=== PATIENT | female | born 1960 ===

== ENCOUNTER 2020-03-24 09:39 | Outpatient (REF) | payer OTHER, SELFPAY ==
[2020-03-24 10:35] LABS: MANUAL DIFF FLAG NO
[2020-03-24 10:44] LABS: Basophils Percent Auto 0.6 % (0-2); Eosinophils Absolute Auto 0.6 X10*3/uL (0.0-0.4); Eosinophils Percent Auto 8.1 % (0-4); Hematocrit 37.9 % (37-47); Hemoglobin 11.7 g/dl (12.0-16.0); Imm Gran Abs Auto 0.01 X10*3/uL (0.00-0.03); Imm Gran Pct Auto 0.1 % (0.0-0.4); Lymphocytes Absolute Auto 2.4 X10*3/uL (1.2-4.9); Lymphocytes Percent Auto 35.6 % (20-40); Mean Corpuscular HGB Conc 30.9 g/dl (31.0-35.0); Mean Corpuscular Volume 84.2 fL (80-98); Mean Platelet Volume 9.4 fL (9.4-12.3); Monocytes Absolute Auto 0.4 X10*3/uL (0.1-1.2); Monocytes Percent Auto 5.6 % (2-11); Neutrophils Absolute Auto 3.4 X10*3/uL (2.0-8.3); Platelet Count 267 X10*3/uL (160-400); Red Cell Distribution Width 17.6 % (11.0-16.0); White Blood Count 6.8 X10*3/uL (4.8-10.8)
[2020-03-24 11:10] LABS: Alanine Aminotransferase 13 U/L (0-31); Albumin Level 4.3 g/dL (3.5-5.0); Alkaline Phosphatase 73 U/L (39-117); Anion Gap 12 (12-20); Aspartate Amino Transferase 15 U/L (5-31); Bilirubin Total 0.2 mg/dL (0.0-1.0); Blood Urea Nitrogen 21 mg/dL (9-16); Calcium 9.2 mg/dL (8.4-10.2); Carbon Dioxide 30 mmol/L (22-29); Chloride 106 mmol/L (96-108); Cholesterol 133 mg/dL; Estimated Glomerular Filt Rate > 60; Glucose Random 89 mg/dL (60-115); HDL Cholesterol 66 mg/dL; LDL Cholesterol Calculated 57 mg/dl; Potassium 5.3 mmol/l (3.3-5.1); Sodium 143 mmol/L (135-145); Triglycerides 52 mg/dL
== END 2020-03-24 09:40 | disposition home or self-care (01) ==
LOC: HO.LAB 09:39
PROVIDERS: Visit Provider Internal Medicine
DX: E11.9 Type 2 diabetes mellitus without complications (principal); D50.9 Iron deficiency anemia, unspecified; Z11.1 Encounter for screening for respiratory tuberculosis
CPT/HCPCS: 36415; 80053; 80061; 85025; 86481

== ENCOUNTER 2020-05-16 08:13 | Outpatient (REF) | payer OTHER, SELFPAY ==
[2020-05-16 08:43] LABS: MANUAL DIFF FLAG NO
[2020-05-16 08:50] LABS: Basophils Absolute Auto 0.1 X10*3/uL (0.0-0.2); Eosinophils Absolute Auto 0.9 X10*3/uL (0.0-0.4); Eosinophils Percent Auto 12.3 % (0-4); Hematocrit 36.6 % (37-47); Hemoglobin 11.1 g/dl (12.0-16.0); Imm Gran Abs Auto 0.01 X10*3/uL (0.00-0.03); Imm Gran Pct Auto 0.1 % (0.0-0.4); Lymphocytes Absolute Auto 2.5 X10*3/uL (1.2-4.9); Lymphocytes Percent Auto 34.8 % (20-40); Mean Corpuscular HGB Conc 30.3 g/dl (31.0-35.0); Mean Corpuscular Hemoglobin 26.5 pg (27.0-33.0); Mean Corpuscular Volume 87.4 fL (80-98); Mean Platelet Volume 9.4 fL (9.4-12.3); Monocytes Absolute Auto 0.5 X10*3/uL (0.1-1.2); Monocytes Percent Auto 7.2 % (2-11); Neutrophils Absolute Auto 3.2 X10*3/uL (2.0-8.3); Neutrophils Percent Auto 44.6 % (45-73); Platelet Count 342 X10*3/uL (160-400); Red Blood Count 4.19 X10*6/uL (4.20-5.50); Red Cell Distribution Width 17.8 % (11.0-16.0); White Blood Count 7.3 X10*3/uL (4.8-10.8)
[2020-05-16 09:10] LABS: Alanine Aminotransferase 11 U/L (0-31); Albumin Level 4.3 g/dL (3.5-5.0); Alkaline Phosphatase 77 U/L (39-117); Anion Gap 13 (12-20); Aspartate Amino Transferase 15 U/L (5-31); Bilirubin Total 0.4 mg/dL (0.0-1.0); Blood Urea Nitrogen 15 mg/dL (9-16); Calcium 8.8 mg/dL (8.4-10.2); Carbon Dioxide 27 mmol/L (22-29); Chloride 105 mmol/L (96-108); Estimated Glomerular Filt Rate > 60; Glucose Fasting 111 mg/dL (60-99); Potassium 4.5 mmol/l (3.3-5.1); Sodium 140 mmol/L (135-145); Total Protein 6.9 g/dL (6.5-8.0)
== END 2020-05-16 08:14 | disposition home or self-care (01) ==
LOC: HO.LAB 08:13
PROVIDERS: PCP Internal Medicine; Visit Provider Internal Medicine
DX: D50.9 Iron deficiency anemia, unspecified (principal); E11.9 Type 2 diabetes mellitus without complications
CPT/HCPCS: 36415; 80053; 85025

== ENCOUNTER → 2020-07-07 12:27 | Outpatient (REF) | payer OTHER, SELFPAY ==
--- NOTE | 2020-07-07 12:32 | ECG_ITS ---
Test Reason : PREPROC Blood Pressure : / mmHG Vent. Rate : 069 BPM Atrial Rate : 069 BPM P-R Int : 158 ms QRS Dur : 088 ms QT Int : 370 ms P-R-T Axes : 017 -21 -04 degrees QTc Int : 396 ms Normal sinus rhythm Normal ECG When compared with ECG of 03-DEC-2019 10:24, Vent. rate has decreased BY 36 BPM Inverted T waves have replaced nonspecific T wave abnormality in Inferior leads Referred By: Joycelyn Huerta Electronically Signed By:MELQUIADES MARIN MD
== END ==
LOC: HO.CARD 12:27
PROVIDERS: PCP Internal Medicine; Visit Provider Internal Medicine
DX: Z01.810 Encounter for preprocedural cardiovascular examination (principal)
CPT/HCPCS: 93005

== ENCOUNTER 2020-07-13 08:47 | Day surgery (SDC) | payer OTHER, SELFPAY ==
[2020-07-07 11:02] VITALS: BMI 28.7
[2020-07-07 11:18] VITALS: BMI 28.7
--- NOTE | 2020-07-09 16:10 | MHC.SHP ---
Pre-Procedural Eval Section A The patient is an INPATIENT: No The History & Physical has been completed within 30 days and I have reviewed it.: Yes Section B Chief Complaint: Cataract Right eye Allergies: Allergies Allergy/AdvReac Type Severity Reaction Status Date / Time No Known Allergies Allergy Verified 06/30/20 17:00 [No Known Allergies*] Plan Diagnosis/Plan: Unchanged I have reviewed the history and physical and performed a pertinent physical examination on my patient. No changes have occurred unless specified.
--- NOTE | 2020-07-10 09:20 | HO.ANESPROP2 ---
Documented by User: Gema Garcianey 07/10/20 09:21 HPI - Anesthesia Eval Consult details Narrative: 60yo F for Right Cataract PCP cleared No prev cataract on record PMFSH Past Medical History Medical History Allergic rhinitis Anemia Dyslipidemia Gastritis Hyperlipidemia Hypertension Type 2 diabetes mellitus Family History Family History Father Diabetes Hypertension Mother Diabetes Hypertension Chronic mental illness Brother In good health Brother In good health Sister In good health Son In good health Son In good health Son In good health Surgical History Surgical History H/O colonoscopy History of esophagogastroduodenoscopy (EGD) History of surgery History of tubal ligation Social History Social History Are you a primary career development coordinator to a significant other at home: No Do you presently have visiting nurse or other home services: No Alcohol intake: never Smoking Status: Never smoker Use of substances other than those prescribed or required for medical reasons: No Have you been hit, kicked, punched, or otherwise hurt by someone within the past year? If so, by whom?: No Advance Directives Information Provided: No Recently lost weight without trying: No Meds Allergies Allergy/AdvReac Type Severity Reaction Status Date / Time No Known Allergies Allergy Verified 06/30/20 17:00 [No Known Allergies*] Home Medications Medication Instructions Recorded Confirmed Type atorvastatin 1 tab PO DAILY 03/31/20 07/07/20 History blood sugar diagnostic #10 ea 03/31/20 07/07/20 History empagliflozin [Jardiance] 1 tab PO QAM 03/31/20 07/07/20 History ferrous sulfate 1 tab PO BID 03/31/20 07/07/20 History lancets 28 gauge #100 ea 03/31/20 07/07/20 History metformin 1 tab PO BID 03/31/20 07/07/20 History omeprazole 1 cap PO DAILY 03/31/20 07/13/20 History ascorbic acid (vitamin C) 500 mg PO DAILY 07/07/20 07/07/20 History lisinopril 1 tab PO DAILY 07/07/20 07/07/20 History Exam Exam Date and Time: July 10, 2020 0920 Height,Weight and Vital Signs: Height 5 ft 2 in Weight 71.214 kg Narrative Narrative: EKG = NSR @ 69 Assessment and Plan Assessment Anesthesia Assessment: Chart Reviewed Documented by User: Arti Wright 07/13/20 10:24 [facility] Past Medical History Medical History Allergic rhinitis Anemia Dyslipidemia Gastritis Hyperlipidemia Hypertension Type 2 diabetes mellitus Family History Family History Father Diabetes Hypertension Mother Diabetes Hypertension Chronic mental illness Brother In good health Brother In good health Sister In good health Son In good health Son In good health Son In good health Surgical History Surgical History H/O colonoscopy History of esophagogastroduodenoscopy (EGD) History of surgery History of tubal ligation Social History Social History Are you a primary career development coordinator to a significant other at home: No Do you presently have visiting nurse or other home services: No Alcohol intake: never Smoking Status: Never smoker Use of substances other than those prescribed or required for medical reasons: No Have you been hit, kicked, punched, or otherwise hurt by someone within the past year? If so, by whom?: No Advance Directives Information Provided: No Recently lost weight without trying: No Meds Allergies Allergy/AdvReac Type Severity Reaction Status Date / Time No Known Allergies Allergy Verified 06/30/20 17:00 [No Known Allergies*] Home Medications Medication Instructions Recorded Confirmed Type atorvastatin 1 tab PO DAILY 03/31/20 07/07/20 History blood sugar diagnostic #10 ea 03/31/20 07/07/20 History empagliflozin [Jardiance] 1 tab PO QAM 03/31/20 07/07/20 History ferrous sulfate 1 tab PO BID 03/31/20 07/07/20 History lancets 28 gauge #100 ea 03/31/20 07/07/20 History metformin 1 tab PO BID 03/31/20 07/07/20 History omeprazole 1 cap PO DAILY 03/31/20 07/13/20 History ascorbic acid (vitamin C) 500 mg PO DAILY 07/07/20 07/07/20 History lisinopril 1 tab PO DAILY 07/07/20 07/07/20 History Exam Airway Mallampati Class: I TM Dist: >3cm Neck ROM: Full Denture: Upper and Lower Loose/Missing/Broken Teeth: Yes, Upper and Lower Heart: RRR Lungs: CTA Assessment and Plan Assessment Anesthesia Assessment: Anesthesia Plan Discussed and Chart Reviewed Final Anesthetic Review NPO: Yes ASA Class: II Final Preanesthetic Review: Meds/Allgs Chart Reviewed, Consent Obtained/Reviewed and Anes Risks/Benef Reviewed Patient Risk: Low Procedure Risk: Low Anesthetic Plan Anesthetic Plan: MAC: Disposition: Standard PACU
[2020-07-13 10:14] VITALS: BP 116/59; PULSE 70; RESP 16; TEMP 36.6; O2SAT 99
[2020-07-13 10:15] LABS: Glucose, Whole Blood 96 mg/dL (60-115)
[2020-07-13] MEDS: Lactated Ringers 500 ML 50 ML IV (10:28)
[2020-07-13] MEDS: Tetracaine HCl/PF 0.5% Oph Sol 4 ML DROPS 1 DROP EYE-RIGHT (10:29)
[2020-07-13] MEDS: Tropicamide 1 % Ophth Sol 3 ML BTL 1 DROP EYE-RIGHT ×3 (10:30→10:36)
[2020-07-13] MEDS: Phenylephrine HCL 2.5% Oph SoL 2 ML BOTTLE 1 DROP EYE-RIGHT ×3 (10:32→10:38)
--- NOTE | 2020-07-13 11:10 | HO.PNOPHT ---
Ophthalmology Procedure Procedure Date of Service: 07/13/20 Ophthalmology Viscoelastic: Viky Dickens Dual Pack Pro Ophthalmology Lenses: TECROMA [id number] (21) Procedure Notes: PREOPERATIVE DIAGNOSIS: Decreased visual acuity right eye secondary to cataract POSTOPERATIVE DIAGNOSIS: Same PROCEDURE: Right cataract extraction with intraocular lens insertion SURGEON: José Miguel Hooper M.D. ANESTHESIA: Topical/MAC ESTIMATED BLOOD LOSS: None COMPLICATIONS: None After obtaining informed consent, the patient was brought to the operating room suite and placed in the supine position. After adequate sedation per anesthesia, topical drops of Tetracaine were given to the right eye. The eye was then prepped and draped in the usual sterile fashion. The operating room microscope was then positioned over the operative eye and a lid speculum placed. A paracentesis was created. Dense white cataract precluded view of the capsle. Air bubble was placed intracamerally followed by visian blue placed on the anterior capsule. The Phaco unit was utilized to evacuate excess Visian Blue. Viscoelastic was then instilled into the anterior chamber. A three plane incision was then created temporally, utilizing a 2.85 mm keratome. Capsulotomy forceps were then utilized to create a circular tear capsulotomy. Hydrodissection and hydrodelineation were carried out until adequate mobilization of the nucleus occurred. Phacoemulsification was then utilized to remove the dense central nucleus followed by removal of the cortical material utilizing the automated aspiration irrigation unit. Viscoelastic was instilled into the posterior capsular bag followed by placement of a posterior chamber intraocular lens without difficulty. The residual Viscoelastic was then removed utilizing the automated IA machine. The wound was checked and found to be watertight. The patient tolerated the procedure well and the lid speculum was removed. Intracameral injection of Vigamox 0.1 mL followed by a subtenon injection of Kenalog-40 0.2 mL were administered. The patient will be seen in the a.m.
[2020-07-13 11:18] VITALS: BP 104/57; PULSE 70; RESP 18; TEMP 36.6; O2SAT 100
== END 2020-07-13 11:42 | disposition home or self-care (01) ==
PROVIDERS: PCP Internal Medicine; Visit Provider Ophthalmology
PROC: (CPT 66985; principal; 2020-07-13 11:40)
DX: H25.11 Age-related nuclear cataract, right eye (principal); E11.9 Type 2 diabetes mellitus without complications; I10 Essential (primary) hypertension; Z79.84 Long term (current) use of oral hypoglycemic drugs; Z79.899 Other long term (current) drug therapy
CPT/HCPCS: 66984; 82947; J2250; J3010; J3300; V2632

== ENCOUNTER 2020-07-27 07:31 | Day surgery (SDC) | payer OTHER, SELFPAY ==
[2020-07-07 11:22] VITALS: BMI 28.7
--- NOTE | 2020-07-24 15:10 | MHC.SHP ---
Pre-Procedural Eval Section A The patient is an INPATIENT: No The History & Physical has been completed within 30 days and I have reviewed it.: Yes Section B Chief Complaint: Cataract Left Eye Allergies: Allergies Allergy/AdvReac Type Severity Reaction Status Date / Time No Known Allergies Allergy Verified 06/30/20 17:00 [No Known Allergies*] Plan Diagnosis/Plan: Unchanged I have reviewed the history and physical and performed a pertinent physical examination on my patient. No changes have occurred unless specified.
[2020-07-27 08:16] LABS: Glucose, Whole Blood 112 mg/dL (60-115)
[2020-07-27] MEDS: Tetracaine HCl/PF 0.5% Oph Sol 4 ML DROPS 1 DROP EYE-LEFT (08:17)
[2020-07-27] MEDS: Tropicamide 1 % Ophth Sol 3 ML BTL 1 DROP EYE-LEFT ×3 (08:18→08:33)
[2020-07-27] MEDS: Phenylephrine HCL 2.5% Oph SoL 2 ML BOTTLE 1 DROP EYE-LEFT ×3 (08:18→08:34)
[2020-07-27 08:28] VITALS: BP 131/66; PULSE 63; RESP 18; TEMP 36.2; O2SAT 98
--- NOTE | 2020-07-27 09:08 | P.CONAN_ITS ---
[facility] Active Problems Active Problems: All Active Problems (Updated 07/07/20 @ 11:05 by Keily hewitt) Iron deficiency anemia (Acute) Dyslipidemia (Acute) Allergic rhinitis (Acute) Diabetes mellitus (Acute) Past Medical History Medical History Allergic rhinitis Anemia Dyslipidemia Gastritis Hyperlipidemia Hypertension Type 2 diabetes mellitus Family History Family History Father Diabetes Hypertension Mother Diabetes Hypertension Chronic mental illness Brother In good health Brother In good health Sister In good health Son In good health Son In good health Son In good health Surgical History Surgical History H/O colonoscopy History of esophagogastroduodenoscopy (EGD) History of surgery History of tubal ligation Social History Social History Are you a primary reproductive healthcare assistant to a significant other at home: No Do you presently have visiting nurse or other home services: No Alcohol intake: never Smoking Status: Never smoker Use of substances other than those prescribed or required for medical reasons: No Have you been hit, kicked, punched, or otherwise hurt by someone within the past year? If so, by whom?: No Advance Directives Information Provided: No Recently lost weight without trying: No Meds Allergies Allergy/AdvReac Type Severity Reaction Status Date / Time No Known Allergies Allergy Verified 06/30/20 17:00 [No Known Allergies*] Active Medications: Current Medications Generic Name Dose Route Start Last Admin Trade Name Freq PRN Reason Stop Dose Admin Povidone Iodine 1 appl 07/27/20 07:48 Povidone Iodine 5 % Ophth Soln 30 Ml Bottle EYE-LEFT PREOP PRN Pre-Op Surgical Implant Prophy Home Medications Medication Instructions Recorded Confirmed Last Taken Type atorvastatin 1 tab PO DAILY 03/31/20 07/07/20 Unknown History blood sugar diagnostic #10 ea 03/31/20 07/07/20 Unknown History empagliflozin [Jardiance] 1 tab PO QAM 03/31/20 07/07/20 Unknown History ferrous sulfate 1 tab PO BID 03/31/20 07/07/20 Unknown History lancets 28 gauge #100 ea 03/31/20 07/07/20 Unknown History metformin 1 tab PO BID 03/31/20 07/07/20 Unknown History omeprazole 1 cap PO DAILY 03/31/20 07/13/20 07/13/20 History ascorbic acid (vitamin C) 500 mg PO DAILY 07/07/20 07/07/20 Unknown History lisinopril 1 tab PO DAILY 07/07/20 07/07/20 Unknown History Exam Exam Date and Time: July 27, 2020 0908 Height,Weight and Vital Signs: Height 5 ft 2 in Weight 71.214 kg Last Vital Signs Temp 97.2 F 07/27/20 08:28 Pulse 63 07/27/20 08:28 Resp 18 07/27/20 08:28 BP 131/66 07/27/20 08:28 Pulse Ox 98 07/27/20 08:28 Pertinent Lab Results Pertinent Lab Results: Laboratory Tests 07/27/20 08:13 POC Glucose 112 Airway Mallampati Class: II (Edentulous) TM Dist: >3cm Neck ROM: Full Denture: Upper and Lower Loose/Missing/Broken Teeth: Yes, Upper and Lower Heart: RRR Lungs: CTA Assessment and Plan Assessment Anesthesia Assessment: Anesthesia Plan Discussed and Chart Reviewed Final Anesthetic Review NPO: Yes ASA Class: II Final Preanesthetic Review: Meds/Allgs Chart Reviewed, Consent Obtained/Reviewed and Anes Risks/Benef Reviewed Patient Risk: Low Procedure Risk: Low Anesthetic Plan Anesthetic Plan: MAC: Disposition: Standard PACU
--- NOTE | 2020-07-27 11:14 | HO.PNOPHT ---
Ophthalmology Procedure Procedure Date of Service: 07/27/20 Ophthalmology Viscoelastic: Healon Duet Dual Pack Pro Ophthalmology Lenses: TECNIS [id number] (21.5) Procedure Notes: PREOPERATIVE DIAGNOSIS: Decreased visual acuity left eye secondary to cataract POSTOPERATIVE DIAGNOSIS: Same PROCEDURE: Left cataract extraction with intraocular lens insertion SURGEON: José Miguel Hooper M.D. ANESTHESIA: Topical/MAC ESTIMATED BLOOD LOSS: None COMPLICATIONS: None After obtaining informed consent, the patient was brought to the operation room suite and placed in the supine position. After adequate sedation per anesthesia, topical drops of Tetracaine were given to the left eye. The eye was then prepped and draped in the usual sterile fashion. The operating room microscope was then positioned over the operative eye and a lid speculum placed. A paracentesis was created. Viscoelastic was then instilled into the anterior chamber. A three plane incision was then created temporally, utilizing a 2.85 mm keratome. Capsulotomy forceps were then utilized to create a circular tear capsulotomy. Hydrodissection and hydrodelineation were carried out until adequate mobilization of the nucleus occurred. Phacoemulsification was then utilized to remove the dense central nucleus followed by removal of the cortical material utilizing the automated aspiration irrigation unit. Viscoat elastic was instilled into the posterior capsular bag followed by placement of a posterior chamber intraocular lens without difficulty. The residual Viscoat elastic was then removed utilizing the automated IA machine. The wound was check and found to be watertight. The patient tolerated the procedure well and the lid speculum was removed. Intracameral injection of Vigamox 0.1 mL followed by a subtenon injection of Kenalog-40 0.2 mL were administered. The patient will be seen in the a.m.
[2020-07-27 11:16] VITALS: BP 129/76; PULSE 68; RESP 20; TEMP 36.7; O2SAT 98
== END 2020-07-27 11:25 | disposition home or self-care (01) ==
PROVIDERS: PCP Internal Medicine; Visit Provider Ophthalmology
PROC: (CPT 66985; principal; 2020-07-27 10:40)
DX: H25.12 Age-related nuclear cataract, left eye (principal); H54.7 Unspecified visual loss; D50.9 Iron deficiency anemia, unspecified; I10 Essential (primary) hypertension; E11.9 Type 2 diabetes mellitus without complications; Z79.84 Long term (current) use of oral hypoglycemic drugs; Z79.899 Other long term (current) drug therapy
CPT/HCPCS: 66984; 82947; J2250; J3010; J3300; V2632

== ENCOUNTER 2020-08-08 09:34 | Outpatient (REF) | payer OTHER, SELFPAY ==
--- NOTE | ~2020-08-08 | MM_ITS ---
EXAMINATION: MM SCREENING DIGITAL BREAST TOMOSYNTHESIS, BILATERAL CLINICAL INFORMATION: Screening. Asymptomatic. The lifetime risk of breast cancer based on the Tyrer-Cuzick Model is 5%. COMPARISON: Mammography: 08/03/2019, 07/28/2018, 07/15/2017 TECHNIQUE: Digital breast tomosynthesis is performed in both the craniocaudal and mediolateral oblique views along with computer-aided detection (CAD). Synthesized 2D images are generated from the tomosynthesis. FINDINGS: There are scattered areas of fibroglandular density (ACR BI-RADS breast composition Category b). Parenchymal pattern is similar to prior studies. Scattered small fibroglandular asymmetries bilateral outer quadrants are stable. There is no developing density. There are no abnormal calcifications. The axilla and skin contours are unremarkable. MM/MM tomosynthesis screening BI IMPRESSION: No significant changes from prior exams. ASSESSMENT: BI-RADS 2: Benign RECOMMENDATION: Routine annual mammography screening. This patient's information was entered into a reminder system with a target due date for their next mammogram.
== END 2020-08-08 09:35 | disposition home or self-care (01) ==
LOC: HO.MAMMO 09:34
PROVIDERS: PCP Internal Medicine; Visit Provider Internal Medicine
DX: Z12.31 Encounter for screening mammogram for malignant neoplasm of breast (principal)
CPT/HCPCS: 77063; 77067

== ENCOUNTER 2020-10-03 07:37 | Outpatient (REF) | payer OTHER, SELFPAY ==
[2020-10-03 08:16] LABS: MANUAL DIFF FLAG NO
[2020-10-03 08:19] LABS: Basophils Absolute Auto 0.1 X10*3/uL (0.0-0.2); Basophils Percent Auto 0.8 % (0-2); Eosinophils Absolute Auto 0.6 X10*3/uL (0.0-0.4); Eosinophils Percent Auto 9.7 % (0-4); Hematocrit 37.6 % (37-47); Hemoglobin 11.6 g/dl (12.0-16.0); Imm Gran Abs Auto 0.02 X10*3/uL (0.00-0.03); Imm Gran Pct Auto 0.3 % (0.0-0.4); Lymphocytes Absolute Auto 2.2 X10*3/uL (1.2-4.9); Lymphocytes Percent Auto 33.8 % (20-40); Mean Corpuscular HGB Conc 30.9 g/dl (31.0-35.0); Mean Corpuscular Hemoglobin 26.7 pg (27.0-33.0); Mean Corpuscular Volume 86.6 fL (80-98); Mean Platelet Volume 9.6 fL (9.4-12.3); Monocytes Absolute Auto 0.8 X10*3/uL (0.1-1.2); Neutrophils Absolute Auto 2.8 X10*3/uL (2.0-8.3); Neutrophils Percent Auto 43.4 % (45-73); Platelet Count 268 X10*3/uL (160-400); Red Blood Count 4.34 X10*6/uL (4.20-5.50); Red Cell Distribution Width 15.2 % (11.0-16.0); White Blood Count 6.5 X10*3/uL (4.8-10.8)
[2020-10-03 08:38] LABS: Alanine Aminotransferase 16 U/L (0-31); Albumin Level 4.4 g/dL (3.5-5.0); Alkaline Phosphatase 76 U/L (39-117); Anion Gap 15 (12-20); Aspartate Amino Transferase 22 U/L (5-31); Bilirubin Total 0.3 mg/dL (0.0-1.0); Blood Urea Nitrogen 18 mg/dL (9-16); Calcium 9.7 mg/dL (8.4-10.2); Carbon Dioxide 26 mmol/L (22-29); Chloride 109 mmol/L (96-108); Cholesterol 115 mg/dL; Estimated Glomerular Filt Rate > 60; Glucose Fasting 135 mg/dL (60-99); HDL Cholesterol 54 mg/dL; Iron 29 mcg/dL (30-160); LDL Cholesterol Calculated 46 mg/dl; Percent Iron Saturation 10 % (15-50); Potassium 4.7 mmol/L (3.3-5.1); Sodium 145 mmol/L (135-145); Total Iron Binding Capacity 298 mcg/dL (228-428); Total Protein 7.1 g/dL (6.5-8.0); Triglycerides 78 mg/dL; Unsaturated Iron Binding 269 ug/dL
== END 2020-10-03 07:38 | disposition home or self-care (01) ==
LOC: HO.LAB 07:37
PROVIDERS: Internal Medicine; PCP Internal Medicine; Visit Provider Internal Medicine
DX: D50.9 Iron deficiency anemia, unspecified (principal); E11.9 Type 2 diabetes mellitus without complications; E78.5 Hyperlipidemia, unspecified
CPT/HCPCS: 36415; 80053; 80061; 83540; 85025

== ENCOUNTER → 2020-10-20 13:20 | Outpatient (BNV) | payer MEDICARE, OTHER, SELFPAY | PROVIDERS: PCP Internal Medicine; Visit Provider Internal Medicine | DX: D50.0 Iron deficiency anemia secondary to blood loss (chronic) (principal); Z85.3 Personal history of malignant neoplasm of breast; Z92.21 Personal history of antineoplastic chemotherapy | CPT/HCPCS: 99213; 99214; G2211 ==

== ENCOUNTER 2021-02-09 06:30 | Outpatient (REF) | payer OTHER, SELFPAY ==
[2021-02-09 08:36] LABS: Alanine Aminotransferase 12 U/L (0-31); Albumin Level 4.4 g/dL (3.5-5.0); Alkaline Phosphatase 83 U/L (39-117); Anion Gap 14 (12-20); Aspartate Amino Transferase 14 U/L (5-31); Bilirubin Total 0.2 mg/dL (0.0-1.0); Blood Urea Nitrogen 21 mg/dL (9-16); Carbon Dioxide 26 mmol/L (22-29); Chloride 105 mmol/L (96-108); Cholesterol 137 mg/dL; Estimated Glomerular Filt Rate > 60; Glucose Fasting 108 mg/dL (60-99); HDL Cholesterol 67 mg/dL; LDL Cholesterol Calculated 54 mg/dl; Potassium 5.4 mmol/L (3.3-5.1); Sodium 140 mmol/L (135-145); Total Protein 7.3 g/dL (6.5-8.0); Triglycerides 80 mg/dL
[2021-02-09 09:21] LABS: Creatinine Urine 68.76 mg/dL; Microalbum/Creatinine Ratio Ur 24.7 ug/mg cr
== END 2021-02-09 06:31 | disposition home or self-care (01) ==
LOC: HO.LAB 06:30
PROVIDERS: PCP Internal Medicine; Visit Provider Internal Medicine
DX: E78.5 Hyperlipidemia, unspecified (principal); E11.9 Type 2 diabetes mellitus without complications
CPT/HCPCS: 36415; 80053; 80061; 82043

== ENCOUNTER 2021-06-08 10:17 | Outpatient (REF) | payer OTHER, SELFPAY | END 2021-06-08 10:18 | disposition home or self-care (01) | LOC: HO.HMGCLDS 10:17 | PROVIDERS: Visit Provider Internal Medicine | DX: Z20.822 Contact with and (suspected) exposure to COVID-19 (principal) | CPT/HCPCS: C9803; U0003; U0005 ==

== ENCOUNTER 2021-08-14 08:19 | Outpatient (REF) | payer OTHER, SELFPAY ==
--- NOTE | ~2021-08-14 | MM_ITS ---
EXAMINATION: MM SCREENING DIGITAL BREAST TOMOSYNTHESIS, BILATERAL CLINICAL INFORMATION: Screening. Asymptomatic. The lifetime risk of breast cancer based on the Tyrer-Cuzick Model is 5%. COMPARISON: Mammography: 08/08/2020, 08/03/2019, 07/28/2018, 07/15/2017, 06/25/2016, 03/28/2015 TECHNIQUE: Digital breast tomosynthesis is performed in both the craniocaudal and mediolateral oblique views along with computer-aided detection (CAD). Synthesized 2D images are generated from the tomosynthesis. FINDINGS: There are scattered areas of fibroglandular density (ACR BI-RADS breast composition Category b). Right breast parenchymal pattern is similar to prior studies. Scattered minor asymmetries are stable. There is no developing density or interval architectural abnormality. Neither breast shows abnormal calcifications. The bilateral axilla and skin contours are unremarkable. Left breast has interval focal asymmetric density posterior 3:00 position. Patient will be recalled for additional imaging. Remainder of left breast is unremarkable. MM/MM tomosynthesis screening BI IMPRESSION: 1. Left: Focal asymmetric density posterior 3:00 position. 2. Right: No mammographic evidence of malignancy. ASSESSMENT: BI-RADS 0: Incomplete - Need Additional Imaging Evaluation RECOMMENDATION: 1. Additional views of the left breast (rolled CC x 2; spot MLO). 2. Targeted ultrasound if warranted after review of the additional views. 3. Radiology department staff will contact the patient for additional imaging. This patient's information was entered into a reminder system with a target due date for their next mammogram.
== END 2021-08-14 08:20 | disposition home or self-care (01) ==
LOC: HO.MAMMO 08:19
PROVIDERS: PCP Internal Medicine; Visit Provider Internal Medicine
DX: Z12.31 Encounter for screening mammogram for malignant neoplasm of breast (principal)
CPT/HCPCS: 77063; 77067

== ENCOUNTER 2021-08-31 14:06 | Outpatient (REF) | payer OTHER, SELFPAY ==
--- NOTE | ~2021-08-31 | MM_ITS ---
EXAMINATION: MM DIAGNOSTIC DIGITAL BREAST TOMOSYNTHESIS, LEFT US DIAGNOSTIC ULTRASOUND BREAST, LEFT CLINICAL INFORMATION: Recall from screening for subtle focal asymmetric density posterior 3:00 position. COMPARISON: Mammography: 08/14/2021, 08/08/2020, 08/03/2019, 07/28/2018, 07/15/2017, 06/25/2016, 03/28/2015. TECHNIQUE: Digital breast tomosynthesis is performed. 2D images are generated from the tomosynthesis. The following views are obtained: Rolled CC x2, spot MLO. Ultrasound left breast is targeted to the mid to posterior outer breast using grayscale imaging and color Doppler without and with harmonics. FINDINGS: There are scattered areas of fibroglandular density (ACR BI-RADS breast composition Category b). The additional views show subtle parenchymal asymmetry posterior 3:00 position. There is question of fine radiating lines on the spot MLO view. Ultrasound left breast demonstrates some inhomogeneous echogenicity in the posterior outer 3:00 position but without convincing three-dimensional lesion to confirm ultrasound correlate for tissue sampling. There is no focal posterior shadowing in two planes. No focal duct ectasia. Results are discussed with the patient at time of visit, using an medicare sales executive. Stereotactic sampling of the parenchymal asymmetry posterior outer left breast is suggested. Results and recommendation are called to police patrol officer (Shruthi) for Dr. Alex Huerta on 08/31/2021. MM/MM tomosynthesis added views L IMPRESSION: Subtle focal asymmetric density posterior 3:00 left breast without convincing ultrasound correlate. ASSESSMENT: BI-RADS 4: Suspicious RECOMMENDATION: Stereotactic sampling focal asymmetry posterior outer left breast. This patient's information was entered into a reminder system with a target due date for their next mammogram.
--- NOTE | ~2021-08-31 | US_ITS ---
EXAMINATION: MM DIAGNOSTIC DIGITAL BREAST TOMOSYNTHESIS, LEFT US DIAGNOSTIC ULTRASOUND BREAST, LEFT CLINICAL INFORMATION: Recall from screening for subtle focal asymmetric density posterior 3:00 position. COMPARISON: Mammography: 08/14/2021, 08/08/2020, 08/03/2019, 07/28/2018, 07/15/2017, 06/25/2016, 03/28/2015. TECHNIQUE: Digital breast tomosynthesis is performed. 2D images are generated from the tomosynthesis. The following views are obtained: Rolled CC x2, spot MLO. Ultrasound left breast is targeted to the mid to posterior outer breast using grayscale imaging and color Doppler without and with harmonics. FINDINGS: There are scattered areas of fibroglandular density (ACR BI-RADS breast composition Category b). The additional views show subtle parenchymal asymmetry posterior 3:00 position. There is question of fine radiating lines on the spot MLO view. Ultrasound left breast demonstrates some inhomogeneous echogenicity in the posterior outer 3:00 position but without convincing three-dimensional lesion to confirm ultrasound correlate for tissue sampling. There is no focal posterior shadowing in two planes. No focal duct ectasia. Results are discussed with the patient at time of visit, using an repairer art objects. Stereotactic sampling of the parenchymal asymmetry posterior outer left breast is suggested. Results and recommendation are called to chief sustainability officer (Shruthi) for Dr. Alex Huerta on 08/31/2021. US/US breast LT limited IMPRESSION: Subtle focal asymmetric density posterior 3:00 left breast without convincing ultrasound correlate. ASSESSMENT: BI-RADS 4: Suspicious RECOMMENDATION: Stereotactic sampling focal asymmetry posterior outer left breast. This patient's information was entered into a reminder system with a target due date for their next mammogram.
== END 2021-08-31 14:07 | disposition home or self-care (01) ==
LOC: HO.MAMMO 14:06
PROVIDERS: PCP Internal Medicine; Visit Provider Internal Medicine
DX: R92.2 Inconclusive mammogram (principal)
CPT/HCPCS: 76642; 77061; 77065

== ENCOUNTER 2021-09-21 07:57 | Outpatient (REF) | payer OTHER, SELFPAY ==
--- NOTE | ~2021-09-21 | MM_ITS ---
EXAMINATION: STEREOTACTIC TOMOSYNTHESIS-GUIDED VACUUM-ASSISTED BREAST BIOPSY, LEFT SPECIMEN RADIOGRAPH, LEFT POST PROCEDURE DIGITAL MAMMOGRAM, LEFT CLINICAL INFORMATION: Subtle focal asymmetric density posterior 3:00 left breast without convincing ultrasound correlate. Stereotactic sampling recommended. COMPARISON: Mammography 08/31/2021, 08/14/2021, 08/08/2020, 08/03/2019, ultrasound left breast 08/31/2021.. TECHNIQUE/PROCEDURE: Informed consent was obtained from the patient after discussion of the benefits, risks, and alternatives to biopsy today. Patient appeared to understand. Gave opportunity for questions. Patient signed consent form. Hospital provided educational interpreter assisted for the consent and throughout the procedure. BIOPSY TABLE: [employer] Affirm Prone Biopsy System. LESION: Subtle focal asymmetric density posterior 3:00 left breast. LOCAL ANESTHESIA: 10 mL carbonated 1% lidocaine; 10 mL 1% lidocaine. DERMATOTOMY: Single skin justus dermatotomy performed. NEEDLE: [employer] Eviva 9-gauge vacuum assisted core biopsy device. APPROACH: lateral medial. TARGETING: Combination of digital breast tomosynthesis and stereotactic digital mammography used for targeting. CORES: 12. CLIP: [employer] SecurMark Cylinder-shaped marker. SPECIMEN RADIOGRAPH: Specimen radiograph is taken in separate room using digital mammography. There are scattered parenchymal densities in the cores consistent with the target. POST PROCEDURE UNILATERAL DIGITAL MAMMOGRAM: The post biopsy mammogram is performed in separate room using separate digital mammography equipment from the biopsy procedure. CC and ML views are obtained. There are scattered areas of fibroglandular density (breast composition category: b). The clip marker is in expected position, in the vicinity of the asymmetric density. The density is not well visualized given the background attenuation from anesthesia and sampling. No gross hematoma. The patient tolerated the procedure well. No immediate complications. Home instructions reviewed with the patient. Final pathology results are pending. MM/MM stereotactic biopsy LT IMPRESSION: 1. Digital tomosynthesis-guided core biopsy left breast with clip placement. 2. Specimen radiograph taken and post procedure mammogram. There is satisfactory positioning of the biopsy clip. 3. Final pathology results pending. An addendum report will be issued.
[2021-09-21] MEDS: Lidocaine HCl 1 % 20 ML VIAL 19 ML SUBCUT (09:13)
[2021-09-21] MEDS: Sodium Bicarbonate 8.4% 50 MEQ/50 ML VIAL SUBCUT (09:16)
== END 2021-09-21 07:58 | disposition home or self-care (01) ==
LOC: HO.MAMMO 07:57
PROVIDERS: PCP Internal Medicine; Visit Provider Surgery
DX: R92.8 Other abnormal and inconclusive findings on diagnostic imaging of breast (principal)
CPT/HCPCS: 19081; 88305; 88341; 88342; 88360; A4648

== ENCOUNTER → 2021-09-28 09:33 | Outpatient (BNVA) | payer OTHER, SELFPAY | PROVIDERS: PCP Internal Medicine; Referring Provider Internal Medicine; Visit Provider Surgery | DX: R92.8 Other abnormal and inconclusive findings on diagnostic imaging of breast (principal) | CPT/HCPCS: 99202 ==

== ENCOUNTER 2021-10-11 15:13 | Outpatient (REF) | payer OTHER, SELFPAY | END 2021-10-11 15:14 | disposition home or self-care (01) | LOC: HO.LAB 15:13 | PROVIDERS: PCP Internal Medicine; Visit Provider Internal Medicine | DX: Z13.89 Encounter for screening for other disorder (principal) ==

== ENCOUNTER 2021-10-11 16:01 | Outpatient (REF) | payer OTHER, SELFPAY | END 2021-10-11 16:02 | disposition home or self-care (01) | LOC: HO.MDS 16:01 | PROVIDERS: PCP Internal Medicine; Visit Provider Internal Medicine | DX: D50.9 Iron deficiency anemia, unspecified (principal); Z67.41 Type O blood, Rh negative | CPT/HCPCS: 36430; 86850; 86900; 86901; 86923; P9016 ==

== ENCOUNTER 2021-10-12 08:42 | Day surgery (SDC) | payer OTHER, SELFPAY ==
--- NOTE | 2021-10-11 09:42 | P.CONAN_ITS ---
Documented by User: Gema Ashby NP 10/11/21 09:48 HPI - Anesthesia Eval Consult details Narrative: 61yo F for Left?Breast Lumpectomy/Needle Loc, [place] Node Biopsy Pt with low H&H 10/05/21. Dr Mendoza (pt follows for anemia and new breast ca) recommends 2 units preop. Pt coming for 2 units PRBC 10/11/21. PMFSH Active Problems Active Problems: All Active Problems (Updated 10/06/21 @ 08:22 by Yokasta Mendoza MD) Iron deficiency anemia (Acute) Diabetes mellitus (Acute) Breast cancer, left (Acute) Abnormal mammogram of left breast (Acute) Gastritis (Acute) Hypertension (Acute) Dyslipidemia (Acute) Allergic rhinitis (Acute) Past Medical History Medical History Abnormal mammogram of left breast Allergic rhinitis Anemia Breast cancer, left Dyslipidemia Gastritis Hyperlipidemia Hypertension Type 2 diabetes mellitus Family History Family History Father Diabetes Hypertension Mother Diabetes Hypertension Chronic mental illness Brother In good health Brother In good health Sister In good health Son In good health Son In good health Son In good health Surgical History Surgical History H/O colonoscopy History of esophagogastroduodenoscopy (EGD) History of surgery History of tubal ligation Hx of bilateral cataract extraction Social History Social History Household Members: Spouse Housing: House Are you a primary geriatric personal care aide to a significant other at home: Yes (mother) Do you presently have visiting nurse or other home services: No Alcohol intake: never Patient Tobacco Use Status: Never used Tobacco e-Cigarette/Vaping Use: Never Used Second Hand Smoke Exposure: No Use of substances other than those prescribed or required for medical reasons: No Are you DNR?: No Advance Directives: No Advance Directives Information Provided: Yes Recently lost weight without trying: No service: No Current occupational status: unemployed Meds Allergies Allergy/AdvReac Type Severity Reaction Status Date / Time No Known Allergies Allergy Verified 10/12/21 09:54 [No Known Allergies*] Home Medications Medication Instructions Recorded Confirmed Last Taken Type blood sugar diagnostic #10 ea 10/27/20 05/10/22 Unknown History lancets 28 gauge #100 ea 03/31/20 10/12/21 Unknown History ascorbic acid (vitamin C) 500 mg 500 mg PO DAILY 07/07/20 10/12/21 Unknown History tablet Exam Exam Date and Time: October 11, 2021 0942 Pertinent Lab Results Pertinent Lab Results: Laboratory Tests 10/05/21 15:11 Sodium 137 Potassium 4.9 Chloride 105 Carbon Dioxide 21 L BUN 14 Creatinine 0.98 Narrative Narrative: EKG 2020 Vent. Rate : 069 BPM ? ? Atrial Rate : 069 BPM ?? P-R Int : 158 ms? QRS Dur : 088 ms ? ? QT Int : 370 ms ? ? ? P-R-T Axes : 017 -21 -04 degrees ?? QTc Int : 396 ms ? Normal sinus rhythm Normal ECG When compared with ECG of 03-DEC-2019 10:24, Vent. rate has decreased BY? 36 BPM Inverted T waves have replaced nonspecific T wave abnormality in Inferior leads Assessment and Plan Assessment Anesthesia Assessment: Chart Reviewed Documented by User: Aspen Brewster MD 10/12/21 13:05 PMFSH Active Problems Active Problems: All Active Problems (Updated 10/06/21 @ 08:22 by Yokasta Mendoza MD) Iron deficiency anemia (Acute). S/p transfusion of 2units PRBC. H/H 10.2/34.4 today. Up from 7.9/27.4 yesterday Diabetes mellitus (Acute) Breast cancer, left (Acute) Abnormal mammogram of left breast (Acute) Gastritis (Acute) Hypertension (Acute) Dyslipidemia (Acute) Allergic rhinitis (Acute) Past Medical History Medical History Abnormal mammogram of left breast Allergic rhinitis Anemia Breast cancer, left Dyslipidemia Gastritis Hyperlipidemia Hypertension Type 2 diabetes mellitus Family History Family History Father Diabetes Hypertension Mother Diabetes Hypertension Chronic mental illness Brother In good health Brother In good health Sister In good health Son In good health Son In good health Son In good health Family history of problems with anesthesia: No Surgical History Surgical History H/O colonoscopy History of esophagogastroduodenoscopy (EGD) History of surgery History of tubal ligation Hx of bilateral cataract extraction History of Problems with Anesthesia: No Social History Social History Household Members: Spouse Housing: House Are you a primary geriatric personal care aide to a significant other at home: Yes (mother) Do you presently have visiting nurse or other home services: No Alcohol intake: never Patient Tobacco Use Status: Never used Tobacco e-Cigarette/Vaping Use: Never Used Second Hand Smoke Exposure: No Use of substances other than those prescribed or required for medical reasons: No Are you DNR?: No Advance Directives: No Advance Directives Information Provided: Yes Recently lost weight without trying: No service: No Current occupational status: unemployed Meds Allergies Allergy/AdvReac Type Severity Reaction Status Date / Time No Known Allergies Allergy Verified 10/12/21 09:54 [No Known Allergies*] Home Medications Medication Instructions Recorded Confirmed Last Taken Type blood sugar diagnostic #10 ea 03/31/20 10/12/21 Unknown History lancets 28 gauge #100 ea 03/31/20 10/12/21 Unknown History ascorbic acid (vitamin C) 500 mg 500 mg PO DAILY 07/07/20 10/12/21 Unknown History tablet Exam Height,Weight and Vital Signs: Height 5 ft 1 in Weight 70.76 kg Vital Signs Temp Pulse Resp BP Pulse Ox 10/12/21 09:52 98.0 F 98 18 127/80 98 Narrative Narrative: EKG 2020 Vent. Rate : 069 BPM ? ? Atrial Rate : 069 BPM ?? P-R Int : 158 ms? QRS Dur : 088 ms ? ? QT Int : 370 ms ? ? ? P-R-T Axes : 017 -21 -04 degrees ?? QTc Int : 396 ms ? Normal sinus rhythm Normal ECG When compared with ECG of 03-DEC-2019 10:24, Vent. rate has decreased BY? 36 BPM Inverted T waves have replaced nonspecific T wave abnormality in Inferior leads EKG today 10/12/21 on monitor. NSR. Upright T waves Airway Mallampati Class: II TM Dist: >3cm Neck ROM: Full Denture: Upper and Lower Heart: RRR Lungs: CTAB Assessment and Plan Assessment Anesthesia Assessment: Anesthesia Plan Discussed Final Anesthetic Review Family History of Problems with Anesthesia: No History of Problems with Anesthesia: No NPO: Yes ASA Class: II Final Preanesthetic Review: No Changes in Pt Med Stat, Meds/Allgs Chart Reviewed, Consent Obtained/Reviewed and Anes Risks/Benef Reviewed Patient Risk: Low Procedure Risk: Low Assessment/Block/Sedation in SS: Assess/Block/Sedation-SS Anesthetic Plan Anesthetic Plan: GA Disposition: Standard PACU
[2021-10-12] VITALS (9 sets, daily range): BP systolic 123–134; BP diastolic 57–80; PULSE 67–98; RESP 16–18; TEMP 36.2–36.7; O2SAT 93–98; BMI 29.5
--- NOTE | ~2021-10-12 | NM_ITS ---
EXAMINATION: NM LYMPH SCINTIGRAPHY CLINICAL INFORMATION: Left breast cancer. COMPARISON: None. TECHNIQUE: Following explaining left breast lymphoscintigraphy procedure, benefits and risks by Dr. Alexander, 1% lidocaine cream was applied around the left breast areola for 30 minutes. The cream was then cleaned in usual aseptic manner and 0.125 mCi each of 99m Tc Lymphoseek was injected in 4 equal quadrants. Imaging was obtained 30 minutes later. FINDINGS: On imaging, there is isotope activity in the 4 quadrants around the left breast areola. There are several, at least 2, areas of activity in the left axilla and and likely in the supraclavicular fossa of the neck. There are several small areas of activity as well from the left axilla to the left supraclavicular fossa. NM/NM sentinel node w imaging IMPRESSION: Several focal areas of isotope activity seen in the left axilla, the left supraclavicular fossa and several areas of mild activity in between the left axilla and left supraclavicular fossa.
--- NOTE | ~2021-10-12 | MM_ITS ---
EXAMINATION: MM MAMMOGRAM GUIDED NEEDLE LOCALIZATION BREAST, LEFT MM NEEDLE LOCALIZATION SPECIMEN FROM THE LEFT BREAST CLINICAL INFORMATION: Recent diagnosis invasive ductal cancer with DCIS posterior outer left breast. COMPARISON: Mammography 09/21/2021, 08/31/2021, 08/14/2021, 08/08/2020, stereotactic left breast biopsy 09/21/2021. TECHNIQUE NEEDLE LOC: Proper informed consent is obtained from the patient after discussion of the procedure, potential risks and complications, and alternatives including declining the procedure today. Patient was given an opportunity for questions. The patient appeared to understand. The patient consented to the procedure and signed the consent form. Hospital provided medical underwriter assisted for the consent and throughout the procedure. GUIDANCE: Digital mammography. APPROACH: Lateral Medial. TARGET: Focal asymmetric density with cylinder shaped biopsy clip marker. ANESTHESIA: Carbonated lidocaine 1%: 6 mL. LOCALIZATION MARKER: [place] Mamma[employer]. 7.5 cm length. The skin is prepped and local anesthesia administered. The needle is positioned and position assessed with mammography. The wire is hooked into position. [place] needle protector placed. The patient tolerated the procedure well and had no immediate complication. Following the procedure, 4% lidocaine ointment was administered to the left areola and covered with Tegaderm in anticipation of nuclear lymphoscintigraphy injection for sentinel lymph node mapping. Procedure results discussed with Dr. Key, prior to surgery. TECHNIQUE SPECIMEN RADIOGRAPH: Imaging of the excised specimen is performed using digital mammography in 1 view. FINDINGS SPECIMEN RADIOGRAPH: The specimen shows the distal needle and distal hookwire are delivered intact. The biopsy clip marker is present in the specimen. There is an irregular density overlying the clip and prior, presumably the primary lesion. Results were called to Dr. Garland Key in the operating room at the time of imaging. MM/MM needle loc LT IMPRESSION: 1. Status post left breast needle localization with wire hooked into position. 2. Post operative specimen radiograph obtained.
[2021-10-12 09:40] LABS: Glucose, Whole Blood 111 mg/dL (60-115)
[2021-10-12 10:13] LABS: Hematocrit 34.4 % (37.0-47.0); Hemoglobin 10.2 g/dl (12.0-16.0); Mean Corpuscular HGB Conc 29.7 g/dl (31.0-35.0); Mean Corpuscular Hemoglobin 23.8 pg (27.0-33.0); Mean Corpuscular Volume 80.2 fL (80.0-98.0); Platelet Count 398 X10*3/uL (160-400); Red Blood Count 4.29 X10*6/uL (4.20-5.50); Red Cell Distribution Width 17.9 % (11.0-16.0); White Blood Count 6.8 X10*3/uL (4.8-10.8)
[2021-10-12] MEDS: Lidocaine HCl 1 % 20 ML VIAL 9 ML SUBCUT (11:12)
[2021-10-12] MEDS: Sodium Bicarbonate 8.4% 50 MEQ/50 ML VIAL SUBCUT (11:14)
--- NOTE | 2021-10-12 12:28 | MHC.SHP ---
Pre-Procedural Eval Section A Date of Service: 10/12/21 The patient is an INPATIENT: No Changes since office visit: No Cold of Flu in the past 2 weeks, No New Medical Problems, No Changes in Medication and No Patient answered all questions The History & Physical has been completed within 30 days and I have reviewed it.: Yes Section B Chief Complaint: inconclusive breast findings Allergies: Allergies Allergy/AdvReac Type Severity Reaction Status Date / Time No Known Allergies Allergy Verified 10/12/21 09:54 [No Known Allergies*] Plan I have reviewed the history and physical and performed a pertinent physical examination on my patient. No changes have occurred unless specified.
--- NOTE | 2021-10-12 14:38 | P.OP_ITS ---
Operative Note Operative Note Date of Service: 10/12/21 Narrative: Preop diagnosis: Invasive ductal carcinoma, left breast Postop diagnosis: Invasive ductal carcinoma left breast Procedure: Lumpectomy, left breast with needle localization and sentinel node biopsy Surgeon: Garland Key MD showroom sales assistant: BESS Brennan The patient is a 61 year female who had a ultrasound biopsy for an abnormal mammogram of the left breast which showed an invasive ductal cancer with accompanying DCIS. She wanted to proceed with breast conservation therapy. I therefore explained to her the technique of lumpectomy with needle localization and sentinel node biopsy. I reviewed the risks, benefits, and alternatives, and she had given consent. She was brought to the operating room. She was placed in supine position with the left arm abducted appose the axilla. She was under general anesthesia via laryngeal mask airway. The left breast and the left axilla were prepped and draped in the usual sterile fashion. A surgical time-out was done. The patient received cefazolin 2 g IV preoperatively . The patient had earlier Undergone needle localization. These images were because and reviewed with the radiologist. The patient had also undergone scintigraphy for the lymph nodes of the left axilla. Again the the images for the scintigraphy were also reviewed and there was note of 2 or 3 lymph nodes that lit up high in the axilla. The localizing needle was seen to enter the lateral aspect of the breast going medially. I infiltrated the planned line of incision with lidocaine 1%. I made an incision on the skin the gentle to the entry point of the needle using blade 15 and this was carried down with electrocautery through the full-thickness skin and subcutaneous fat. I then proceeded to gently do sharp dissection with the curved Hagan scissors to divide the breast tissue surrounding the localizing needle. Was taken to ensure that we were including wide margins. We were therefore carefully seeing the needle as we advanced with the dissection until I could feel the end of the localizing needle. I continued to dissect past this point circumferentially, making sure that we had wide margins of breast tissue surrounding the the localized needle. I marked the lateral and superior margins of the specimen with sutures. This was sent re-ray and immediate gross. I observed for hemostasis. I cauterized oozing areas. I then applied a gauze to pack the lumpectomy cavity and covered this with Tegaderm to seal this We then proceeded to do our sentinel node biopsy. We changed the instrument set up and gloves at this point. I used the probe to locate the highest counts in the axilla and marked this. I then the incision on the skin on this area with a blade 15. This carried down with electrocautery through the full- thickness skin andsubcutaneous fat. I open up the fascia of the axilla and continued to use the probe to guide our dissection into the axillary contents. I gently and bluntly dissected the axillary fat with the right angle clamp until were able to detect counts on 1 area. I palpated as well and was able to feel for 1 lymph node with a count of 206. This was removed with the cautery and was sent as sentinel 1. Another node was palpated and was removed as well and this was noted to have a count of 1603. There were no other areas with significantly elevated counts but I felt 1 area with what I thought was a small lymph node. This was excised and sent as additional axillary tissue. I then observed for hemostasis. I cauterized all oozing areas. Once hemostasis was ensured, I reapposed the deep subcutaneous layer with multiple interrupted Dexon 3-0 sutures. Skin closure was achieved with Dexon 4-0 subcuticular running stitch. I then received a phone call from radiologist stating that the biopsyl clip as well as the lesion appeared to be within the specimen. I also received a phone call from the pathologist stating that the margins appeared to be clear although it may have been closed on the deeper margins so I excise more tissue on the deep margin was was already right on the pectoralis muscle. This was therefore sent as additional deep margins. I then proceeded to cauterize all oozing areas. I irrigated as well. Once hemostasis was ensured, I proceeded to then reapposed the deep subcutaneous tissue with Dexon 3-0 interrupted sutures. Skin closure was also achieved with subcuticular running Dexon 4-0 stitch. All incisions were infiltrated with Marcaine 0.5% for postop analgesia. Dressings were applied. The procedure was then completed. The patient tolerated theprocedure well. There were no complication noted. Initial and final counts of sponges and instruments were correct. Estimated blood loss was about 75 cc . The patient was extubated without difficulty and transferred to the recovery room with stable vital signs. The specimens were as follows A. sentinel node 1 with a count of 206 B. sentinel node 2 With a count of 1603 C. additional axillary tissue D. additional deep margins on the lumpectomy site Breast [employer] Node Biopsy Substrate(s) used for sentinel node biopsy in the non-neoadjuvant setting: Radiotracer All colored nodes or non-colored nodes present at the end of a dye filled lymphatic channel were removed, if dye was used as the substrate for l ocalization: N/A All significantly radioactive nodes were removed, if radionuclide was used as the substrate for localization: Yes All palpably suspicious nodes were removed, if present: N/A If clips were placed in pathology-involved nodes, those nodes were identified and removed: Yes General Surg. - Synoptic Notes Breast [employer] Node Biopsy Substrate(s) used for sentinel node biopsy in the non-neoadjuvant setting: Radiotracer All colored nodes or non-colored nodes present at the end of a dye filled lymphatic channel were removed, if dye was used as the substrate for localization: N/A All significantly radioactive nodes were removed, if radionuclide was used as the substrate for localization: Yes All palpably suspicious nodes were removed, if present: N/A If clips were placed in pathology-involved nodes, those nodes were identified and removed: Yes
[2021-10-12] MEDS: Acetaminophen 325 MG TABLET 650 MG PO (15:09)
[2021-10-12] MEDS: oxyCODONE HCl Immed Release 5 MG TABLET PO (15:43)
[2021-10-12] MEDS: ondansetron HCL 4 MG/2 ML VIAL IVPUSH (16:25)
--- NOTE | 2021-10-12 16:57 | PC.NURSE ---
1650 patient reports resolve nausea following 200 ml additional ivf. reports ready to discharge to home. iv removed and discharged without incident
== END 2021-10-12 16:58 | disposition home or self-care (01) ==
PROVIDERS: Internal Medicine Medical Oncology; Nurse Practitioner; PCP Internal Medicine; Visit Provider Surgery
PROC: (CPT 19301; principal; 2021-10-12 13:00)
DX: C50.812 Malignant neoplasm of overlapping sites of left female breast (principal); Z17.1 Estrogen receptor negative status [ER-]; J30.9 Allergic rhinitis, unspecified; E78.5 Hyperlipidemia, unspecified; I10 Essential (primary) hypertension; D64.9 Anemia, unspecified; E11.9 Type 2 diabetes mellitus without complications; Z79.84 Long term (current) use of oral hypoglycemic drugs; Z79.899 Other long term (current) drug therapy
CPT/HCPCS: 19301; 38525; 19281; 36415; 78195; 82947; 85027; 88305; 88307; 88329; 88341; 88342; A4648; A9520; J0690; J1100; J2250; J2405; J3010

== ENCOUNTER → 2021-10-21 12:39 | Outpatient (BNVA) | payer OTHER, SELFPAY | PROVIDERS: PCP Internal Medicine; Referring Provider Internal Medicine; Visit Provider Surgery | DX: C50.912 Malignant neoplasm of unspecified site of left female breast (principal) | CPT/HCPCS: 99212 ==

== ENCOUNTER 2021-11-02 08:15 | Outpatient (REF) | payer OTHER, SELFPAY | END 2021-11-02 08:16 | disposition home or self-care (01) | LOC: HO.MDS 08:15 | PROVIDERS: Visit Provider Internal Medicine | DX: D50.9 Iron deficiency anemia, unspecified (principal) | CPT/HCPCS: 96365; 96366; J1200; J1750 ==

== ENCOUNTER → 2021-11-03 08:21 | Outpatient (REF) | payer OTHER, SELFPAY ==
--- NOTE | 2021-11-03 08:27 | CA_ITS ---
Transthoracic Echocardiogram Patient (Last, First, Middle): Juana Desai H Gender: Female Date of : 1960 Age: 61 Procedure Date: 11/03/2021 Procedure Type: Transthoracic Echocardiogram Location: OP Height: 157.48 cm Weight: 71.67 kg BSA: 1.73 m2 Heart Rate: bpm BP: 120 / 70 mmHg Wood Carving Machine Operator: CALLY Trent MD: Yokasta Mendoza MD Operating Room Tech: Kishore Garcia MD Symptoms: pre herceptin eval Study Quality: Fair ECG Rhythm: Sinus Conclusions: - Essentially normal study with mild fibrocalcific aortic valve changes noted Findings Left Ventricle Normal left ventricular size, thickness, and systolic function. The visually estimated ejection fraction is between 60-65%. Spectral Doppler is indicative of a normal filling pattern. Peak GLS is -20.1%, within normal limits. Right Ventricle Normal right ventricular cavity size and systolic function. Atria Both atria are normal in size. There is no evidence of interatrial shunt. Aortic Valve There is mild calcification of the aortic valve. There is no aortic valve stenosis. There is no aortic valve regurgitation. Mitral Valve Normal mitral valve structure and function. There is trace mitral valve regurgitation. There is no mitral valve stenosis. Pulmonic Valve The pulmonic valve is likely normal. Tricuspid Valve Normal tricuspid valve structure. There is trace tricuspid valve regurgitation. The right ventricular systolic pressure is normal. The right ventricular systolic pressure is 33 mmHg. Normal right atrial pressure. There is no evidence of pulmonary hypertension. Great Vessels All visible segments of the aorta are normal in size. The pulmonary artery was not well visualized. Venous The inferior vena cava is normal in size and collapses greater than 50% with inspiration. Pericardium/Pleural There is no evidence of pericardial effusion. Measurements 2D Linear Measurements IVSd: 0.98 0.6-0.9/0.6-1.0 cm LVIDd: 4.49 3.9-5.3/4.2-5.9 cm LVIDd Index: 2.60 2.4-3.2/2.2-3.1 cm/m2 LVIDs: 2.74 2.0-3.6 cm LVPWd: 0.91 0.7-1.1 cm LA Diam: 3.50 2.7-3.8/3.0-4.0 cm LAIDs Index: 2.02 1.5-2.3 cm/m2 LV Mass: 175.31 67-162/88-224 g LV Mass Index: 101.33 43-95/49-115 g/m2 LVOT Diam: 2.00 3.0+(-)1.3 cm 2D Systolic Function EF 4C: 56.70 >55% EF 2C: 67.40 >55% EF BiP: 63.00 >55% Mitral Valve MV Pk E: 1.04 MV PK A: 0.83 MV Decel Time: 226.00 E/A: 1.30 E'Lateral: 11.20 E'Medial: 6.74 E/E' Med: 15.40 E/E' Lat: 9.30 PHT: 66.00 MVA PHT: 3.33 Decel [place]: 4.59 Aortic Valve AoV Pk Yoel: 1.64 AoV Mn Yoel: 1.10 AoV VTI: 0.35 AoV Pk Grad: 11.00 Aov Mn Grad: 6.00 CALOS Cont.VTI: 2.30 LVOT LVOT Pk Yoel: 1.12 LVOT Mn Yoel: 0.75 LVOT VTI: 0.26 LVOT Pk Grad: 5.00 LVOT Mn Grad: 3.00 LVOT Diam: 2.00 LVOT Area: 3.14 Diastolic Function MV Pk E: 1.04 MV Pk A: 0.83 E/A: 1.30 E'Medial: 6.74 E/E' Med: 15.40 E' Laterial: 11.20 E/E' Lat: 9.30 Right Ventricle TAPSE (mm): 24.80 TVS' Yoel: 11.20 Tricuspid Valve TR Pk Yoel: 2.74 TR Pk Grad: 30.00 RA Press: 3.00 RVSP: 33.00 Great Vessels Aorta Sinus of Valsalva: 2.72 2.0-3.[address] [place]: 2.60 1.7-3.4 cm Ao Asc: 2.80 2.1-3.4 cm Ao Arch: 2.90 Updated in Other Vendor System with Status of Final Kishore Garcia MD electronically signed on 11/04/2021 12:27:29 PM with status of Final
== END ==
LOC: HO.CARD 08:21
PROVIDERS: PCP Internal Medicine; Visit Provider Internal Medicine
DX: R92.8 Other abnormal and inconclusive findings on diagnostic imaging of breast (principal)
CPT/HCPCS: 93306; 93356

== ENCOUNTER 2021-11-05 06:55 | Day surgery (SDC) | payer OTHER, SELFPAY ==
[2021-11-05] VITALS (7 sets, daily range): BP systolic 113–132; BP diastolic 43–70; PULSE 71–89; RESP 16–18; TEMP 36.3–36.6; O2SAT 97–99; BMI 29.8
--- NOTE | ~2021-11-05 | IR_ITS ---
PROCEDURE: IR INSERTION OF TUNNEL CATHETER CLINICAL INFORMATION: Left breast cancer. Needs long-term chemotherapy. COMPARISON: None TECHNIQUE: Following explaining ultrasound and fluoroscopy-guided placement of a tunneled port catheter procedure, benefits and risk via a commercial lawn specialist, a written consent was obtained. Patient was placed supine on fluoroscopy table and preliminary ultrasound imaging was obtained through the right neck. An optimal site was selected and marked on the skin. Marked site was cleaned and draped in usual sterile manner. 1% lidocaine was injected at marked site. A single wall needle was advanced from the marked site into the jugular vein under sterile ultrasound guidance. After obtaining venous return a thin guidewire was advanced into the right jugular vein under fluoroscopy and needle withdrawn. A 5 Tristanian dilator was placed over the guidewire and the entire unit was anchored to the drape with a hemostat. Approximately one-gauze length inferior and to the right in the anterior chest wall 1% lidocaine was injected. A small skin incision was performed and a pocket created subcutaneously. A trial of portacatheter was performed to make sure the port fit in the pocket. 1% lidocaine was then injected from the right anterior chest wall incision to the right neck incision subcutaneously. A tunneler attached to the port catheter was then bluntly inserted from the anterior chest wall incision and pulled through the right neck incision. The catheter was sized. The existent 5 Tristanian dilator and the guidewire were removed and a 0.035 J-wire was inserted through the 5 Tristanian sheath into the IVC under fluoroscopy guidance and the sheath was removed. A 6.5 Tristanian sheath with dilator was then inserted over the guidewire. The guidewire and the dilator were removed and the sized port catheter was inserted through the peel-away sheath. The sheath was peeled off as the catheter was advanced. Position of the catheter was then checked under fluoroscopy and a single image obtained. The port was flushed with Mendoza needle and heparin instilled. The right anterior chest wall incision was sutured with subcutaneous 3-0 absorbable sutures and the skin was sutured with 4-0 absorbable sutures. The right anterior neck incision was sutured with 4-0 absorbable sutures. Sterile dressing was applied postprocedure. Patient tolerated procedure extremely well. All elements of maximal sterile barrier technique followed including use of cap, mask, sterile gown, sterile gloves, a sterile full body drape and hand hygiene. Also followed skin preparation with 2% chlorhexidine for cutaneous antisepsis, and sterile ultrasound preparation with sterile gel and probe cover when applicable. FINDINGS: On preliminary ultrasound imaging there is a widely patent right jugular vein. Approximately 21 cm long 6.6 Tristanian PORT catheter was placed with its tip in the distal SVC. The port is ready for use. IR/IR cvc insert tunnel w prt/accounts receivable supervisor IMPRESSION: Successful ultrasound and fluoroscopy-guided placement of a right PORT catheter with its tip in distal SVC ready for use.
[2021-11-05 07:30] LABS: MANUAL DIFF FLAG NO
[2021-11-05 07:31] LABS: Basophils Percent Auto 0.6 % (0-2); Eosinophils Absolute Auto 0.3 X10*3/uL (0.0-0.4); Eosinophils Percent Auto 5.1 % (0-4); Hematocrit 37.5 % (37.0-47.0); Hemoglobin 11.2 g/dl (12.0-16.0); Imm Gran Abs Auto 0.02 X10*3/uL (0.00-0.03); Imm Gran Pct Auto 0.3 % (0.0-0.4); Lymphocytes Absolute Auto 2.1 X10*3/uL (1.2-4.9); Lymphocytes Percent Auto 33.5 % (20-40); Mean Corpuscular HGB Conc 29.9 g/dl (31.0-35.0); Mean Corpuscular Hemoglobin 24.7 pg (27.0-33.0); Mean Corpuscular Volume 82.6 fL (80.0-98.0); Mean Platelet Volume 9.4 fL (9.4-12.3); Monocytes Absolute Auto 0.6 X10*3/uL (0.1-1.2); Neutrophils Absolute Auto 3.3 x10*3/uL (2.0-8.3); Neutrophils Percent Auto 51.5 % (45-73); Platelet Count 325 X10*3/uL (160-400); Red Blood Count 4.54 X10*6/uL (4.20-5.50); Red Cell Distribution Width 19.9 % (11.0-16.0); White Blood Count 6.3 X10*3/uL (4.8-10.8)
[2021-11-05 07:42] LABS: Glucose, Whole Blood 97 mg/dL (60-115)
[2021-11-05 07:53] LABS: INTERNATIONAL NORM RATIO 0.9 (0.9-1.1); Prothrombin Time 9.6 SEC (9.9-13.0)
[2021-11-05 07:56] LABS: Partial Thromboplastin Time 30.9 SEC (24.1-38.0)
[2021-11-05] MEDS: Lidocaine HCl 1 % 20 ML VIAL 5 ML SUBCUT (09:36)
== END 2021-11-05 11:56 | disposition home or self-care (01) ==
PROVIDERS: Radiology Diagnostic Radiology; PCP Internal Medicine; Visit Provider Radiology Diagnostic Radiology
DX: C50.912 Malignant neoplasm of unspecified site of left female breast (principal); Z17.1 Estrogen receptor negative status [ER-]; D50.9 Iron deficiency anemia, unspecified; E78.5 Hyperlipidemia, unspecified; I10 Essential (primary) hypertension; E11.9 Type 2 diabetes mellitus without complications; Z79.84 Long term (current) use of oral hypoglycemic drugs; Z79.899 Other long term (current) drug therapy
CPT/HCPCS: 36415; 36561; 82947; 85025; 85610; 85730; 99152; 99153; C1769; C1788; J0690; J1642; J2250; J3010

== ENCOUNTER 2021-11-16 07:51 | Emergency (ER) | payer OTHER, SELFPAY ==
[2021-11-16 08:14] VITALS: BP 147/77; PULSE 81; RESP 18; TEMP 36.9; O2SAT 99; BMI 29.0
--- NOTE | 2021-11-16 08:36 | ED_ITS ---
HPI - General Adult General Chief complaint: Nausea/Vomiting/Diarrhea Stated complaint: Nausea/Vomiting/Dizzy 3x Days Time Seen by Provider: 11/16/21 08:32 Source: patient and director perioperative Mode of arrival: ambulatory Limitations: language barrier History of Present Illness HPI narrative: Patient is a 61 year old female presenting to the emergency department today with nausea, vomiting, and intermittent dizziness. Patient states that for the last 3 days she has had some nausea, vomiting, and intermittent dizziness. Patient states that the dizziness only happens when she sits up after waking up in the morning but gets better shortly after being upright. Patient states that she has been nauseous and thrown up once. Patient denies any current dizziness, lightheadedness, abdominal pain, fever, chills, blurry vision, double vision, loss of vision, chest pain, difficulty breathing, shortness of breath, back pain, night sweats, pain with urination, increased urinary frequency, increased urinary urgency, blood in her urine or stool, syncope or a near syncopal episode, recent trauma or falls, bowel incontinence, bladder incontinence, bowel retention, bladder retention, or any other complaints at this time. Onset (ago): day(s) (2) Severity: mild Severity scale (1-10): 1 Relieving factors: none Exacerbating factors: none Associated symptoms: nausea/vomiting Treatments prior to arrival: none Related Data Home Medications Medication Instructions Recorded Confirmed blood sugar diagnostic #10 ea 03/31/20 11/09/21 lancets 28 gauge #100 ea 03/31/20 11/09/21 ascorbic acid (vitamin C) 500 mg 500 mg PO DAILY 07/07/20 11/09/21 tablet Previous Rx's Medication Instructions Recorded blood sugar diagnostic (FreeStyle 1 strip miscellaneous TID for 10/20/20 Lite Strips) diabetes mellitus #100 ea cyanocobalamin (vitamin B-12) 500 500 mcg PO DAILY #90 tabs 10/20/20 mcg tablet (Vitamin B-12) omeprazole 20 mg capsule,delayed 20 mg PO DAILY #30 caps 12/10/20 release empagliflozin 10 mg tablet 10 mg PO QAM #30 tabs 04/05/21 (Jardiance) ferrous sulfate 325 mg (65 mg 325 mg PO BID 90 days #180 tabs 05/04/21 iron) tablet clotrimazole-betamethasone 1 1 appl topical BID 30 days #15 06/19/21 %-0.05 % topical cream grams atorvastatin 40 mg tablet 40 mg PO DAILY #30 tabs 07/04/21 metformin 1,000 mg tablet 1,000 mg PO BID 30 days #60 tabs 10/04/21 lisinopril 10 mg tablet 10 mg PO DAILY 90 days #90 tabs 11/07/21 lorazepam 0.5 mg tablet (Ativan) 0.5 mg PO BID PRN anxiety 30 days 11/09/21 #15 tabs cephalexin 500 mg capsule 500 mg PO Q6H 7 days #28 caps 11/16/21 meclizine 12.5 mg tablet 12.5 mg PO TID PRN dizziness 2 11/16/21 days #7 tabs ondansetron 4 mg disintegrating 4 mg PO Q8H 3 days #9 tabs 11/16/21 tablet Allergies Allergy/AdvReac Type Severity Reaction Status Date / Time No Known Allergies Allergy Verified 11/09/21 10:50 [No Known Allergies*] Review of Systems Constitutional: Constitutional: Reports no additional constitutional complaints, Denies chills, Denies fever(s) and Denies night sweats Eyes: Eyes: Reports no additional eye complaints, Denies blurry vision, Denies change in vision, Denies diplopia, Denies eye discharge, Denies loss of vision and Denies eye pain ENT: Reports dizziness (intermittent but not currently) Cardiovascular: Cardiovascular: Reports no additional cardiovascular complaints, Denies chest pain, Denies lightheadedness, Denies Loss of Consciousness and Denies dyspnea Respiratory: Respiratory: Reports no additional respiratory complaints and Denies dyspnea Gastrointestinal: Gastrointestinal: Reports no additional gastrointestinal complaints, Denies abdominal pain, Denies melena, Denies hematochezia, Denies change in bowel habits, Denies change in stool character, Reports nausea and Reports vomiting Genitourinary: Genitourinary: Denies hematuria, Denies urinary frequency, Denies dysuria, Denies urinary incontinence, Denies urinary hesitancy and Denies urinary urgency Musculoskeletal: Musculoskeletal: Reports no additional musculoskeletal complaints, Denies numbness and Denies tingling Neurologic: Reports dizziness (intermittent but not currently), Denies loss of vision, Denies numbness and Denies tingling Psychiatric: Psychiatric: Reports no additional psychiatric complaints Endocrine: Endocrine: Reports no additional endocrine complaints Hematologic/Lymphatic: Hematologic/Lymphatic: Reports no additional hematologic/lymphatic complaints Allergic/Immunologic: Allergic/Immunologic: Reports no additional allergic/immunologic complaints PMFSH Past Medical History Attestation statement: The following information was validated with the patient. Source: old records reviewed Medical History Anemia Hyperlipidemia Type 2 diabetes mellitus Surgical History H/O colonoscopy History of esophagogastroduodenoscopy (EGD) History of lumpectomy of left breast History of surgery History of tubal ligation Hx of bilateral cataract extraction Family History Family History Father Diabetes Hypertension Mother Diabetes Hypertension Chronic mental illness Brother In good health Brother In good health Sister In good health Son In good health Son In good health Son In good health Social History Social History Household Members: Spouse Housing: House Are you a primary care advocate to a significant other at home: Yes (mother) Do you presently have visiting nurse or other home services: No Alcohol intake: never Patient Tobacco Use Status: Never used Tobacco e-Cigarette/Vaping Use: Never Used Second Hand Smoke Exposure: No Use of substances other than those prescribed or required for medical reasons: No Have you been hit, kicked, punched, or otherwise hurt by someone within the past year? If so, by whom?: No Do you feel safe in your current relationship?: Yes Do you have thoughts of harming others: None Do you have a plan to hurt others: No Plan Do you have the means to hurt others: No Recently lost weight without trying: No service: No Current occupational status: unemployed Cognitive needs: No Hearing needs: No Vision needs: No Physical Exam ED Vital Signs: Vital Signs - 24 hr 11/16/21 08:14 11/16/21 11:30 Temperature 98.5 F Pulse Rate 81 54 Respiratory Rate 18 18 Blood Pressure 147/77 H 131/62 Pulse Oximetry 99 99 Oxygen Delivery Method Room Air Room Air BMI result Body Mass Index 29.0 Const General: cooperative, no acute distress, alert and awake Nutritional Appearance: well nourished Orientation/consciousness: patient oriented x3 Limitations: no limitations HENMT Head: Yes normal to inspection and Yes atraumatic Ears: hearing grossly normal bilaterally and external ears normal General nose exam: Normal external nose present, no nasal discharge noted and no epistaxis Face and sinus: Yes normal facial exam, No abrasion and No laceration Mouth: Normal oral and palatal mucosa present, no drooling and no muffled voice Eyes General: appearance normal, both eyes and all related structures Periorbital: periorbital findings normal Eyelids: Yes eyelids normal Conjunctivae: conjunctivae normal Pupils: Equal, round and reactive pupils present EOM: EOMs intact bilaterally Neck Neck: Yes normal visual inspection, Yes full ROM and Yes no lymphadenopathy Chest Chest palpation & inspection: normal inspection of the chest Resp Effort & Inspection: normal respiratory effort and able to speak in complete sentences Auscultation: clear to auscultation bilaterally Cardio Rate: regular rate Rhythm: regular rhythm GI Inspection: Yes normal to inspection Palpation (GI): Soft to palpation, not firm, nontender, no guarding and not rigid Neuro General: patient oriented x3 and moves all extremities Cranial nerves: Yes Equal, round and reactive pupils present Cognition (Neuro): normal cognition Motor exam (neuro): 5/5 motor strength present throughout Sensory Exam: Normal double simultaneous stimulation for sensation Coordination: [id number] test normal Extrem General: Yes normal to inspection, Yes full ROM and Yes capillary refill normal Psych Appearance: grossly normal Mental Status: mental status grossly normal Affect: normal affect Attitude: cooperative Thought process: Normal thought process present Thought content: Normal thought content present Insight: Good insight present (Psych) Medical Decision Making [facility] Narrative Medical decision making narrative: Patient is a 61 year old female presenting to the emergency department today with nausea, vomiting, and intermittent dizziness. Patient's physical exam was unremarkable. Patient's blood work was unremarkable. Patient's urine showed a slight urinary tract infection. Patient refused a head CT. I explained my physical exam findings as well as all test results to the patient. I answered all questions asked by the patient. Patient received Zofran and IV fluids which she stated helped her symptoms significantly. I stressed the importance of the patient taking her medication as prescribed. I stressed the importance of the patient following up with her primary care provider. I stressed the importance of the patient returning to the emergency department immediately if her symptoms were to worsen or if she were to develop any dizziness, shortness of breath, difficulty breathing, chest pain, blurry vision, loss of vision, nausea, vomiting, abdominal pain, fever, chills, back pain, or any other complaints. Patient verbalized agreement and understanding with this treatment plan and discharge. Differential Diagnosis Differential Diagnosis: UTI, viral illness, nausea Medical Records Medical records reviewed: Yes I reviewed the patient's medical records. Lab Data Lab results reviewed: Yes I reviewed the patient's lab results. Result diagrams: 11/16/21 09:06 11/16/21 09:06 Labs: Lab Results 11/16/21 11/16/21 11/16/21 Range/Units 09:06 09:06 09:17 WBC 6.8 (4.8-10.8) X10*3/uL RBC 4.76 (4.20-5.50) X10*6/uL Hgb 11.9 L (12.0-16.0) g/dl Hct 40.1 (37.0-47.0) % MCV 84.2 (80.0-98.0) fL MCH 25.0 L (27.0-33.0) pg MCHC 29.7 L (31.0-35.0) g/dl RDW 20.9 H (11.0-16.0) % Plt Count 304 (160-400) X10*3/uL MPV 9.2 L (9.4-12.3) fL Immature Gran % (Auto) 0.3 (0.0-0.4) % Neut % (Auto) 57.6 (45-73) % Lymph % (Auto) 31.0 (20-40) % [place] % (Auto) 6.8 (2-11) % Eos % (Auto) 3.7 (0-4) % Baso % (Auto) 0.6 (0-2) % Lymph # (Auto) 2.1 (1.2-4.9) X10*3/uL [place] # (Auto) 0.5 (0.1-1.2) X10*3/uL Eos # (Auto) 0.3 (0.0-0.4) X10*3/uL Baso # (Auto) 0.0 (0.0-0.2) X10*3/uL Abs Immat Gran (auto) 0.02 (0.00-0.03) X10*3/uL Absolute Neuts (auto) 3.9 (2.0-8.3) x10*3/uL Absolute Nucleated RBC 0.000 (0.0-0.012) X10*3/uL Nucleated RBC % (auto) 0.0 (0.0-0.2) /100WBC Sodium 142 (135-145) mmol/L Potassium 4.8 (3.3-5.1) mmol/L Chloride 104 (96-108) mmol/L Carbon Dioxide 27 (22-29) mmol/L Anion Gap 16 (12-20) BUN 14 (9-16) mg/dL Creatinine 0.71 (0.5-1.4) mg/dL Estim Creat Clear Calc 72.4 Estimated GFR > 60 Random Glucose 148 H (60-115) mg/dL Calcium 9.9 (8.4-10.2) mg/dL Total Bilirubin < 0.2 (0.0-1.0) mg/dL AST 15 (5-31) U/L ALT 17 (0-31) U/L Alkaline Phosphatase 87 (39-117) U/L Total Protein 7.4 (6.5-8.0) g/dL Albumin 4.6 (3.5-5.0) g/dL Urine Color Urine Appearance Urine pH (5.0-8.0) Ur Specific [place] (1.005-1.025) Urine Protein (NEG-TRACE) MG/DL Urine Glucose (UA) (NEG) MG/DL Urine Ketones (NEG) MG/DL Urine Blood (NEG) Urine Nitrite (NEG) Ur Leukocyte Esterase (NEG) Urine RBC (0) /HPF Urine WBC (0-4) /HPF Ur Squamous Epith Cells /LPF Urine Bacteria /LPF Urine Mucus /LPF COVID-19 (YAMILKA) (Negative) COVID-19 Clin Com Influenza Type A (ASTER) Negative (Negative) Influenza Type B (ASTER) Negative (Negative) Influenza A & B Note See Note 11/16/21 11/16/21 Range/Units 09:17 10:41 WBC (4.8-10.8) X10*3/uL RBC (4.20-5.50) X10*6/uL Hgb (12.0-16.0) g/dl Hct (37.0-47.0) % MCV (80.0-98.0) fL MCH (27.0-33.0) pg MCHC (31.0-35.0) g/dl RDW (11.0-16.0) % Plt Count (160-400) X10*3/uL MPV (9.4-12.3) fL Immature Gran % (Auto) (0.0-0.4) % Neut % (Auto) (45-73) % Lymph % (Auto) (20-40) % [place] % (Auto) (2-11) % Eos % (Auto) (0-4) % Baso % (Auto) (0-2) % Lymph # (Auto) (1.2-4.9) X10*3/uL [place] # (Auto) (0.1-1.2) X10*3/uL Eos # (Auto) (0.0-0.4) X10*3/uL Baso # (Auto) (0.0-0.2) X10*3/uL Abs Immat Gran (auto) (0.00-0.03) X10*3/uL Absolute Neuts (auto) (2.0-8.3) x10*3/uL Absolute Nucleated RBC (0.0-0.012) X10*3/uL Nucleated RBC % (auto) (0.0-0.2) /100WBC Sodium (135-145) mmol/L Potassium (3.3-5.1) mmol/L Chloride (96-108) mmol/L Carbon Dioxide (22-29) mmol/L Anion Gap (12-20) BUN (9-16) mg/dL Creatinine (0.5-1.4) mg/dL Estim Creat Clear Calc Estimated GFR Random Glucose (60-115) mg/dL Calcium (8.4-10.2) mg/dL Total Bilirubin (0.0-1.0) mg/dL AST (5-31) U/L ALT (0-31) U/L Alkaline Phosphatase (39-117) U/L Total Protein (6.5-8.0) g/dL Albumin (3.5-5.0) g/dL Urine Color YELLOW Urine Appearance CLOUDY Urine pH 6.0 (5.0-8.0) Ur Specific [place] 1.010 (1.005-1.025) Urine Protein NEG (NEG-TRACE) MG/DL Urine Glucose (UA) 100 H (NEG) MG/DL Urine Ketones NEG (NEG) MG/DL Urine Blood TRACE (NEG) Urine Nitrite POS H (NEG) Ur Leukocyte Esterase 1+ H (NEG) Urine RBC 1-4 (0) /HPF Urine WBC 30-49 H (0-4) /HPF Ur Squamous Epith Cells 1+ /LPF Urine Bacteria 2+ /LPF Urine Mucus 1+ /LPF COVID-19 (YAMILKA) Negative (Negative) COVID-19 Clin Com See Note Influenza Type A (ASTER) (Negative) Influenza Type B (ASTER) (Negative) Influenza A & B Note Discharge Plan Discharge Clinical Impression: Urinary tract infection, Nausea Patient Disposition: Home, Self-Care Instructions: Urinary Tract Infection in Women (ED), Acute Nausea and Vomiting (ED), Dizziness (ED) Additional Instructions: Follow up with your primary care provider. Return to the emergency department immediately if your symptoms worsen or if you develop any dizziness, shortness of breath, difficulty breathing, chest pain, blurry vision, loss of vision, naus ea, vomiting, abdominal pain, fever, chills, back pain, or any other complaints. Prescriptions: New cephalexin 500 mg capsule 500 mg PO Q6H 7 Days Qty: 28 0RF meclizine 12.5 mg tablet 12.5 mg PO TID PRN (Reason: dizziness) 2 Days Qty: 7 0RF ondansetron 4 mg tablet,disintegrating 4 mg PO Q8H 3 Days Qty: 9 0RF No Action blood sugar diagnostic [FreeStyle Lite Strips] Strip 1 strip miscellaneous TID Qty: 100 3RF omeprazole 20 mg capsule,delayed release(DR/EC) 20 mg PO DAILY Qty: 30 6RF Jardiance 10 mg tablet 10 mg PO QAM Qty: 30 6RF ferrous sulfate 325 mg (65 mg iron) tablet 325 mg PO BID 90 Days Qty: 180 1RF clotrimazole-betamethasone 1-0.05 % cream 1 appl topical BID 30 Days Qty: 15 1RF atorvastatin 40 mg tablet 40 mg PO DAILY Qty: 30 3RF metformin 1,000 mg tablet 1,000 mg PO BID 30 Days Qty: 60 1RF lisinopril 10 mg tablet 10 mg PO DAILY 90 Days Qty: 90 0RF cyanocobalamin (vitamin B-12) [Vitamin B-12] 500 mcg Tablet 500 mcg PO DAILY Qty: 90 3RF ascorbic acid (vitamin C) 500 mg Tablet 500 mg PO DAILY (DME) FreeStyle Lite Strips Strip See Rx Instructions .ROUTE .MEDSUPPLY Qty: 10 Rx Instructions: As directed (DME) lancets 28 gauge misc See Rx Instructions topical TID Qty: 100 Rx Instructions: As directed lorazepam [Ativan] 0.5 mg tablet 0.5 mg PO BID PRN (Reason: anxiety) 30 Days Qty: 15 0RF Referrals: Joycelyn Dailey MD [Primary Care Provider] - Interventions: ED Discharge Assessment Last Done: 11/16/21 12:02 Discharge Date/Time: 11/16/21 12:04 Print Language: Trin[place]
[2021-11-16] MEDS: 0.9 % Sodium Chloride 1,000 ML 999 ML IVCONT (09:07)
[2021-11-16] MEDS: Ondansetron ODT 4 MG TAB.RAPDIS TRANSLINGU (09:07)
--- NOTE | 2021-11-16 09:12 | PC.NURSE ---
pt comes in with complaints of N/V x 3 days, last episode yesteday, denies abd pain but states she has been dizzy and questioning vertigo. MD made aware, IV established, medicated as per MAR orders. Call salas within reach. Will continue to monitor.
[2021-11-16 09:15] LABS: MANUAL DIFF FLAG NO
[2021-11-16 09:18] LABS: Basophils Percent Auto 0.6 % (0-2); Eosinophils Absolute Auto 0.3 X10*3/uL (0.0-0.4); Eosinophils Percent Auto 3.7 % (0-4); Hematocrit 40.1 % (37.0-47.0); Hemoglobin 11.9 g/dl (12.0-16.0); Imm Gran Abs Auto 0.02 X10*3/uL (0.00-0.03); Imm Gran Pct Auto 0.3 % (0.0-0.4); Lymphocytes Absolute Auto 2.1 X10*3/uL (1.2-4.9); Mean Corpuscular HGB Conc 29.7 g/dl (31.0-35.0); Mean Corpuscular Volume 84.2 fL (80.0-98.0); Mean Platelet Volume 9.2 fL (9.4-12.3); Monocytes Absolute Auto 0.5 X10*3/uL (0.1-1.2); Monocytes Percent Auto 6.8 % (2-11); Neutrophils Absolute Auto 3.9 x10*3/uL (2.0-8.3); Neutrophils Percent Auto 57.6 % (45-73); Platelet Count 304 X10*3/uL (160-400); Red Blood Count 4.76 X10*6/uL (4.20-5.50); Red Cell Distribution Width 20.9 % (11.0-16.0); White Blood Count 6.8 X10*3/uL (4.8-10.8)
[2021-11-16 09:47] LABS: COVID-19 Test Negative (Negative)
[2021-11-16 09:51] LABS: IDNOW Serial# 55D5AD1C; Influenza A Negative (Negative); Influenza B2 Negative (Negative)
[2021-11-16 09:58] LABS: Alanine Aminotransferase 17 U/L (0-31); Albumin Level 4.6 g/dL (3.5-5.0); Alkaline Phosphatase 87 U/L (39-117); Anion Gap 16 (12-20); Aspartate Amino Transferase 15 U/L (5-31); Bilirubin Total < 0.2 mg/dL (0.0-1.0); Blood Urea Nitrogen 14 mg/dL (9-16); Calcium 9.9 mg/dL (8.4-10.2); Carbon Dioxide 27 mmol/L (22-29); Chloride 104 mmol/L (96-108); Creatinine Clr Calc Pharmacy 72.4; Estimated Glomerular Filt Rate > 60; Glucose Random 148 mg/dL (60-115); Potassium 4.8 mmol/L (3.3-5.1); Sodium 142 mmol/L (135-145); Total Protein 7.4 g/dL (6.5-8.0)
--- NOTE | 2021-11-16 10:54 | PC.NURSE ---
Urine sent, pt c/o dizziness still PA made aware.
[2021-11-16 10:56] LABS: Appearance Urine CLOUDY; Color Urine YELLOW; Glucose Urine UA 100 MG/DL (NEG); Leukocyte Esterase Urine 1+ (NEG); Nitrite Urine POS (NEG); UACC Culture Trigger YES; Urine Blood TRACE (NEG); Urine Ketones NEG (NEG); Urine Protein NEG (NEG-TRACE)
[2021-11-16 11:04] LABS: Bacteria Urine 2+ /LPF; WBC Urine 30-49 /HPF (0-4)
[2021-11-16 11:05] LABS: Mucus Urine 1+ /LPF; Squamous Epithelial Cell Urine 1+ /LPF
[2021-11-16 11:30] VITALS: BP 131/62; PULSE 54; RESP 18; O2SAT 99
[2021-11-16] MEDS: Meclizine HCl 12.5 MG TABLET PO (11:58)
== END 2021-11-16 12:04 | disposition home or self-care (01) ==
PROVIDERS: Physician Assistant Medical; Emergency Provider Emergency Medicine; PCP Internal Medicine
DX: N39.0 Urinary tract infection, site not specified (principal); B96.20 Unspecified Escherichia coli [E. coli] as the cause of diseases classified elsewhere; R11.2 Nausea with vomiting, unspecified; Z20.822 Contact with and (suspected) exposure to COVID-19; E11.9 Type 2 diabetes mellitus without complications; I10 Essential (primary) hypertension; E78.5 Hyperlipidemia, unspecified
CPT/HCPCS: 36415; 80053; 81001; 85025; 87086; 87088; 87186; 87502; 87635; 96360; 99284

== ENCOUNTER → 2022-02-01 07:34 | Outpatient (REF) | payer OTHER, SELFPAY ==
--- NOTE | 2022-02-01 07:36 | CA_ITS ---
Transthoracic Echocardiogram Patient (Last, First, Middle): Juana Desai H Gender: Female Date of : 1960 Age: 61 Procedure Date: 02/01/2022 Procedure Type: Transthoracic Echocardiogram Location: OP Height: 157.48 cm Weight: 68.95 kg BSA: 1.70 m2 Heart Rate: bpm BP: 102 / 62 mmHg Oyster Grower: TO Referring MD: Yokasta Mendoza MD Symptoms: on HER2 therapy Study Quality: Fair Conclusions: - 1. Normal LV systolic function with LVEF of 55-60% 2. Fibrocalcific aortic valve changes noted with minimal increased gradient otherwise normal cardiac valvular Doppler 3. Normal RV systolic pressure 4. No gross pericardial effusion Findings Left Ventricle Normal left ventricular size, thickness, and systolic function. The visually estimated ejection fraction is between 55-60%. Spectral Doppler is indicative of a normal filling pattern. Peak GLS is -18.9%, within normal limits Right Ventricle Normal right ventricular cavity size and systolic function. Atria Both atria are normal in size. There is no evidence of interatrial shunt. Aortic Valve There is mild calcification of the aortic valve. There is no aortic valve stenosis. There is no aortic valve regurgitation. Mitral Valve There is mild anterior and posterior mitral leaflet thickening. There is trace mitral valve regurgitation. There is no mitral valve stenosis. Pulmonic Valve The pulmonic valve was not well visualized. Tricuspid Valve Likely normal tricuspid valve structure and function. There is mild tricuspid valve regurgitation. The right ventricular systolic pressure is normal. The right ventricular systolic pressure is 27 mmHg. Normal right atrial pressure. There is no evidence of pulmonary hypertension. Great Vessels All visible segments of the aorta are normal in size. The pulmonary artery was not well visualized. Venous The inferior vena cava is normal in size and collapses greater than 50% with inspiration. Pericardium/Pleural There is no evidence of pericardial effusion. Prior Study Comparison No significant change compared to prior study dated: 11/03/2021. Measurements 2D Linear Measurements IVSd: 1.03 0.6-0.9/0.6-1.0 cm LVIDd: 3.62 3.9-5.3/4.2-5.9 cm LVIDd Index: 2.13 2.4-3.2/2.2-3.1 cm/m2 LVIDs: 2.43 2.0-3.6 cm LVPWd: 0.85 0.7-1.1 cm LA Diam: 3.30 2.7-3.8/3.0-4.0 cm LAIDs Index: 1.94 1.5-2.3 cm/m2 LV Mass: 124.07 67-162/88-224 g LV Mass Index: 72.98 43-95/49-115 g/m2 LVOT Diam: 1.90 3.0+(-)1.3 cm 2D Systolic Function EF 4C: 58.30 >55% EF 2C: 53.70 >55% EF BiP: 55.60 >55% Mitral Valve MV Pk E: 0.78 MV PK A: 0.52 MV Decel Time: 150.00 E/A: 1.50 E'Lateral: 9.36 E'Medial: 7.94 E/E' Med: 9.80 E/E' Lat: 8.30 PHT: 44.00 MVA PHT: 5.00 Decel [place]: 5.22 Aortic Valve AoV Pk Yoel: 1.72 AoV Mn Yoel: 1.17 AoV VTI: 0.32 AoV Pk Grad: 12.00 Aov Mn Grad: 6.00 CALOS Cont.VTI: 1.75 LVOT LVOT Pk Yoel: 0.94 LVOT Mn Yoel: 0.70 LVOT VTI: 0.20 LVOT Pk Grad: 4.00 LVOT Mn Grad: 2.00 LVOT Diam: 1.90 LVOT Area: 2.84 Diastolic Function MV Pk E: 0.78 MV Pk A: 0.52 E/A: 1.50 E'Medial: 7.94 E/E' Med: 9.80 E' Laterial: 9.36 E/E' Lat: 8.30 Right Ventricle TAPSE (mm): 21.50 TVS' Yoel: 13.20 Tricuspid Valve TR Pk Yoel: 2.47 TR Pk Grad: 24.00 RA Press: 3.00 RVSP: 27.00 Great Vessels Aorta Sinus of Valsalva: 3.02 2.0-3.[address] [place]: 2.35 1.7-3.4 cm Ao Asc: 2.70 2.1-3.4 cm Updated in Other Vendor System with Status of Final Kishore Garcia MD electronically signed on 02/01/2022 4:46:02 PM with status of Final
== END ==
LOC: HO.CARD 07:34
PROVIDERS: Visit Provider Internal Medicine
DX: C50.912 Malignant neoplasm of unspecified site of left female breast (principal)
CPT/HCPCS: 93306; 93356

== ENCOUNTER → 2022-04-19 08:00 | Outpatient (REF) | payer OTHER, SELFPAY ==
--- NOTE | 2022-04-19 08:02 | CA_ITS ---
Transthoracic Echocardiogram Patient (Last, First, Middle): Juana Desai H Gender: Female Date of : 1960 Age: 62 Procedure Date: 04/19/2022 Procedure Type: Transthoracic Echocardiogram Location: OP Height: 157.48 cm Weight: 70.76 kg BSA: 1.72 m2 Heart Rate: 76 bpm BP: 122 / 64 mmHg Travelers' Aid Worker: SB Referring MD: Yokasta Mendoza MD Acrylic Fabricator: Kishore Garcia MD Symptoms: on herceptin Study Quality: Fair but adequate ECG Rhythm: Sinus Conclusions: - Normal LV systolic function with LVEF of 55-60% Findings Left Ventricle Normal left ventricular size, thickness, and systolic function. The visually estimated ejection fraction is between 55-60%. Peak GLS is -18.9%, within normal limits Prior Study Comparison No significant change compared to prior study dated: 02/01/2022. Measurements 2D Linear Measurements IVSd: 0.97 0.6-0.9/0.6-1.0 cm LVIDd: 4.30 3.9-5.3/4.2-5.9 cm LVIDd Index: 2.50 2.4-3.2/2.2-3.1 cm/m2 LVIDs: 3.21 2.0-3.6 cm LVPWd: 0.65 0.7-1.1 cm LV Mass: 133.74 67-162/88-224 g LV Mass Index: 77.76 43-95/49-115 g/m2 2D Systolic Function EF 4C: 59.40 >55% EF 2C: 61.20 >55% EF BiP: 59.10 >55% Updated in Other Vendor System with Status of Final Kishore Garcia MD electronically signed on 04/20/2022 2:23:25 PM with status of Final
== END ==
LOC: HO.CARD 08:00
PROVIDERS: PCP Internal Medicine; Visit Provider Internal Medicine
DX: C50.919 Malignant neoplasm of unspecified site of unspecified female breast (principal); Z79.899 Other long term (current) drug therapy
CPT/HCPCS: 93308; 93356

== ENCOUNTER 2022-05-12 07:44 | Outpatient (REF) | payer OTHER, SELFPAY ==
[2022-05-12 08:42] LABS: Alanine Aminotransferase 14 U/L (0-31); Albumin Level 4.1 g/dL (3.5-5.0); Alkaline Phosphatase 80 U/L (39-117); Anion Gap 11 (12-20); Aspartate Amino Transferase 15 U/L (5-31); Bilirubin Total 0.2 mg/dL (0.0-1.0); Blood Urea Nitrogen 16 mg/dL (9-16); Calcium 9.2 mg/dL (8.4-10.2); Carbon Dioxide 28 mmol/L (22-29); Chloride 105 mmol/L (96-108); Cholesterol 150 mg/dL; Estimated Glomerular Filt Rate > 60; Glucose Fasting 152 mg/dL (60-99); HDL Cholesterol 57 mg/dL; LDL Cholesterol Calculated 77 mg/dl; Potassium 4.1 mmol/L (3.3-5.1); Sodium 140 mmol/L (135-145); Total Protein 6.4 g/dL (6.5-8.0); Triglycerides 81 mg/dL
[2022-05-12 18:22] LABS: Creatinine Urine 83.36 mg/dL; Microalbum/Creatinine Ratio Ur 8.3 ug/mg cr
[2022-05-17 03:43] LABS: TS Negative Control Passed; TS Panel A 0; TS Panel B 0; TS Positive Control Passed; TSpotTB Negative (Negative)
== END 2022-05-12 07:45 | disposition home or self-care (01) ==
LOC: HO.LAB 07:44
PROVIDERS: PCP Internal Medicine; Visit Provider Internal Medicine
DX: Z11.1 Encounter for screening for respiratory tuberculosis (principal); E11.9 Type 2 diabetes mellitus without complications; E78.5 Hyperlipidemia, unspecified
CPT/HCPCS: 36415; 80053; 80061; 82043; 86481

== ENCOUNTER → 2022-06-08 10:17 | Outpatient (BNVA) | payer OTHER, SELFPAY | PROVIDERS: PCP Internal Medicine; Visit Provider Surgery | DX: C50.912 Malignant neoplasm of unspecified site of left female breast (principal); Z17.1 Estrogen receptor negative status [ER-]; Z92.21 Personal history of antineoplastic chemotherapy | CPT/HCPCS: 99212 ==

== ENCOUNTER → 2022-07-05 12:26 | Outpatient (REF) | payer OTHER, SELFPAY ==
--- NOTE | 2022-07-05 12:28 | CA_ITS ---
Transthoracic Echocardiogram Patient (Last, First, Middle): Juana Desai H Gender: Female Date of : 1960 Age: 62 Procedure Date: 07/05/2022 Procedure Type: Transthoracic Echocardiogram Location: OP Height: 157.48 cm Weight: 69.85 kg BSA: 1.71 m2 Heart Rate: bpm BP: 110 / 70 mmHg Business Analytics Specialist: TO Referring MD: Yokasta Mendoza MD Symptoms: on herceptin Study Quality: Fair Conclusions: - Normal LV systolic function with LVEF of 55-60% Findings Left Ventricle Normal left ventricular size, thickness, and systolic function. The visually estimated ejection fraction is between 55-60%. Prior Study Comparison No significant change compared to prior study dated: 04/19/2022. Measurements 2D Linear Measurements IVSd: 1.00 0.6-0.9/0.6-1.0 cm LVIDd: 4.16 3.9-5.3/4.2-5.9 cm LVIDd Index: 2.43 2.4-3.2/2.2-3.1 cm/m2 LVIDs: 3.14 2.0-3.6 cm LVPWd: 0.84 0.7-1.1 cm LA Diam: 3.50 2.7-3.8/3.0-4.0 cm LAIDs Index: 2.05 1.5-2.3 cm/m2 LV Mass: 150.11 67-162/88-224 g LV Mass Index: 87.78 43-95/49-115 g/m2 LVOT Diam: 1.90 3.0+(-)1.3 cm 2D Systolic Function EF 4C: 49.80 >55% EF 2C: 56.10 >55% LVOT LVOT Pk Yoel: 0.72 LVOT Mn Yoel: 0.52 LVOT VTI: 0.18 LVOT Pk Grad: 2.00 LVOT Mn Grad: 1.00 LVOT Diam: 1.90 LVOT Area: 2.84 Tricuspid Valve RA Press: 0.00 Updated in Other Vendor System with Status of Final Kishore Garcia MD electronically signed on 07/05/2022 4:43:56 PM with status of Final
== END ==
LOC: HO.CARD 12:26
PROVIDERS: Visit Provider Internal Medicine
DX: C50.912 Malignant neoplasm of unspecified site of left female breast (principal); T45.1X5A Adverse effect of antineoplastic and immunosuppressive drugs, initial encounter
CPT/HCPCS: 93308

== ENCOUNTER → 2022-09-07 11:32 | Outpatient (BNVA) | payer OTHER, SELFPAY | PROVIDERS: PCP Internal Medicine; Visit Provider Surgery | DX: M79.622 Pain in left upper arm (principal); C50.412 Malignant neoplasm of upper-outer quadrant of left female breast; Z17.1 Estrogen receptor negative status [ER-]; Z92.21 Personal history of antineoplastic chemotherapy; Z92.3 Personal history of irradiation | CPT/HCPCS: 99212 ==

== ENCOUNTER → 2022-10-25 09:41 | Outpatient (REF) | payer OTHER, SELFPAY ==
--- NOTE | 2022-10-25 09:44 | CA_ITS ---
Transthoracic Echocardiogram Patient (Last, First, Middle): Juana Desai H Gender: Female Date of : 1960 Age: 62 Procedure Date: 10/25/2022 Procedure Type: Transthoracic Echocardiogram Location: OP Height: 157.48 cm Weight: 68.04 kg BSA: 1.69 m2 Heart Rate: bpm BP: 118 / 58 mmHg Sales Account Executive: TO Referring MD: Yokasta Mendoza MD Symptoms: on chemo Study Quality: Fair Conclusions: - The calculated ejection fraction is 60% by biplane method. There is no evidence of regional wall motion abnormalities. - No obvious valvular pathology seen on this study. Findings Left Ventricle Normal left ventricular cavity size. The left ventricular systolic function is normal. The calculated ejection fraction is 60% by biplane method. There is no evidence of regional wall motion abnormalities. Diastolic function is normal for age. There is mild septal and mild basal asymmetric hypertrophy. LV peak GLS -17.1%. Could be slight underestimate. Right Ventricle Normal right ventricular cavity size and systolic function. Atria Both atria are normal in size. Aortic Valve There is a normal trileaflet aortic valve. There is no aortic valve stenosis. There is no aortic valve regurgitation. Mitral Valve The mitral valve appears normal. There is no mitral valve regurgitation. There is no mitral valve stenosis. Pulmonic Valve The pulmonic valve is likely normal. Tricuspid Valve There is trace tricuspid valve regurgitation. There is no evidence of pulmonary hypertension. Great Vessels The asc aorta is normal in size. Venous The inferior vena cava is normal in size and collapses greater than 50% with inspiration. Pericardium/Pleural There is no evidence of pericardial effusion. Prior Study Comparison No significant change compared to prior study dated: 07/05/2022. Recommendations, Care & Conclusions No obvious valvular pathology seen on this study. Measurements 2D Linear Measurements IVSd: 1.06 0.6-0.9/0.6-1.0 cm LVIDd: 3.71 3.9-5.3/4.2-5.9 cm LVIDd Index: 2.20 2.4-3.2/2.2-3.1 cm/m2 LVIDs: 2.73 2.0-3.6 cm LVPWd: 0.85 0.7-1.1 cm LA Diam: 2.90 2.7-3.8/3.0-4.0 cm LAIDs Index: 1.72 1.5-2.3 cm/m2 LV Mass: 131.10 67-162/88-224 g LV Mass Index: 77.58 43-95/49-115 g/m2 LVOT Diam: 1.80 3.0+(-)1.3 cm 2D Systolic Function EF 4C: 59.60 >55% EF 2C: 58.80 >55% EF BiP: 59.60 >55% Mitral Valve MV Pk E: 0.87 MV PK A: 0.80 MV Decel Time: 210.00 E/A: 1.10 E'Lateral: 7.83 E'Medial: 5.98 E/E' Med: 14.60 E/E' Lat: 11.20 PHT: 62.00 MVA PHT: 3.55 Decel Yellow Medicine: 4.16 Aortic Valve AoV Pk Yoel: 1.87 AoV Mn Yoel: 1.23 AoV VTI: 0.36 AoV Pk Grad: 14.00 Aov Mn Grad: 7.00 CALOS Cont.VTI: 1.71 LVOT LVOT Pk Yoel: 1.10 LVOT Mn Yoel: 0.69 LVOT VTI: 0.24 LVOT Pk Grad: 5.00 LVOT Mn Grad: 2.00 LVOT Diam: 1.80 LVOT Area: 2.54 Diastolic Function MV Pk E: 0.87 MV Pk A: 0.80 E/A: 1.10 E'Medial: 5.98 E/E' Med: 14.60 E' Laterial: 7.83 E/E' Lat: 11.20 Right Ventricle TAPSE (mm): 24.70 TVS' Yoel: 12.80 Tricuspid Valve TR Pk Yoel: 2.04 TR Pk Grad: 17.00 RA Press: 3.00 RVSP: 20.00 Great Vessels Aorta Sinus of Valsalva: 2.91 2.0-3.[address] Ridge: 1.82 1.7-3.4 cm Ao Asc: 2.80 2.1-3.4 cm Updated in Other Vendor System with Status of Final Efrain Joseph MD electronically signed on 10/26/2022 11:41:15 AM with status of Final
== END ==
LOC: HO.CARD 09:41
PROVIDERS: PCP Internal Medicine; Visit Provider Internal Medicine
DX: C50.912 Malignant neoplasm of unspecified site of left female breast (principal)
CPT/HCPCS: 93306; 93356

== ENCOUNTER 2022-11-01 06:36 | Outpatient (REF) | payer OTHER, SELFPAY ==
[2022-11-01 07:59] LABS: Alanine Aminotransferase 16 U/L (0-31); Albumin Level 4.2 g/dL (3.5-5.0); Alkaline Phosphatase 90 U/L (39-117); Anion Gap 15 (12-20); Aspartate Amino Transferase 18 U/L (5-31); Bilirubin Total 0.3 mg/dL (0.0-1.0); Blood Urea Nitrogen 24 mg/dL (9-16); Calcium 9.6 mg/dL (8.4-10.2); Carbon Dioxide 23 mmol/L (22-29); Chloride 109 mmol/L (96-108); Cholesterol 132 mg/dL; Estimated Glomerular Filt Rate > 60; Glucose Fasting 115 mg/dL (60-99); HDL Cholesterol 58 mg/dL; LDL Cholesterol Calculated 52 mg/dl; Sodium 142 mmol/L (135-145); Total Protein 6.9 g/dL (6.5-8.0); Triglycerides 111 mg/dL
[2022-11-01 08:17] LABS: Vitamin D 25-OH Total 19.8 ng/mL (>30)
[2022-11-01 09:40] LABS: Creatinine Urine 63.23 mg/dL; Microalbum/Creatinine Ratio Ur 113.8 ug/mg cr
== END 2022-11-01 06:37 | disposition home or self-care (01) ==
LOC: HO.LAB 06:36
PROVIDERS: PCP Internal Medicine; Visit Provider Internal Medicine
DX: E11.9 Type 2 diabetes mellitus without complications (principal); E55.9 Vitamin D deficiency, unspecified; E78.5 Hyperlipidemia, unspecified
CPT/HCPCS: 36415; 80053; 80061; 82043; 82306

== ENCOUNTER 2022-11-26 08:57 | Outpatient (REF) | payer OTHER, SELFPAY | END 2022-11-26 08:58 | disposition home or self-care (01) | LOC: HO.MAMMO 08:57 | PROVIDERS: PCP Internal Medicine; Visit Provider Internal Medicine | DX: Z13.89 Encounter for screening for other disorder (principal) ==

== ENCOUNTER 2022-11-29 10:48 | Outpatient (REF) | payer OTHER, SELFPAY ==
--- NOTE | ~2022-11-29 | MM_ITS ---
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 Due for yearly. COMPARISON: Prior mammography exams dating back to 07/15/2017. TECHNIQUE: Digital breast tomosynthesis is performed in both the craniocaudal and mediolateral oblique views along with computer-aided detection (CAD). Synthesized 2D images are generated from the tomosynthesis. FINDINGS: There are scattered areas of fibroglandular density (ACR BI-RADS breast composition Category b). Left breast post therapy changes are present with benign scarring posterior outer breast, smooth left breast skin thickening, and mild coarsening of the stromal markings. The right breast has parenchymal pattern similar to prior studies. No developing density or architectural abnormality. There is a port overlying the right axilla. No significant changes. Results are provided to the patient at time of visit by the technologist. MM/MM tomosynthesis diagnostic BI IMPRESSION: -No mammographic evidence of malignancy. -Post therapy changes left breast. ASSESSMENT: BI-RADS 2: Benign RECOMMENDATION: Annual bilateral mammography. This patient's information was entered into a reminder system with a target due date for their next mammogram.
== END 2022-11-29 10:49 | disposition home or self-care (01) ==
LOC: HO.MAMMO 10:48
PROVIDERS: PCP Internal Medicine; Visit Provider Internal Medicine
DX: Z85.3 Personal history of malignant neoplasm of breast (principal)
CPT/HCPCS: 77062; 77066

== ENCOUNTER 2022-12-21 13:33 | Outpatient (AMB) | payer OTHER, SELFPAY ==
--- NOTE | 2022-12-21 13:44 | A.OFFVIS_ITS ---
Intake Vital Signs 12/21/22 13:45 Height 5 ft 2 in Weight 151 lb BMI 27.6 BP 110/59 L Blood Pressure Location Rt brachial Position Sitting Pulse 68 Intake Visit Reasons: 3 mth follow up breast exam Intake Note: This patient presents for a three month follow-up breast examination assessment. Patient denies breast complaints at this time. Plaster Mold Maker Required: Yes Plaster Mold Maker Language: Field Cane Scaler Helper Name: Aram Information Interpreted: non-clinical & clinical Accompanied by: Self / Same As Patient Allergies No Known Allergies [No Known Allergies*] Allergy (Verified 12/21/22 13:50) Medication List - Last Reconciled 12/21/22 by Garland Key MD ascorbic acid (vitamin C) 500 mg PO DAILY atorvastatin 40 mg PO DAILY blood sugar diagnostic As directed blood sugar diagnostic (FreeStyle Lite Strips) 1 strip miscellaneous TID clotrimazole-betamethasone 1-0.05 % 1 appl topical BID 30 days cyanocobalamin (vitamin B-12) (Vitamin B-12) 500 mcg PO DAILY empagliflozin (Jardiance) 10 mg PO QAM ferrous sulfate 325 mg PO BID 90 days hydrocortisone 1% (Anti-Itch (hydrocortisone)) 1 appl topical TID PRN 30 days lancets As directed lisinopril 10 mg PO DAILY 90 days lorazepam (Ativan) 0.5 mg PO BID PRN 30 days metformin 1,000 mg PO BID 30 days omeprazole 20 mg PO DAILY terbinafine HCl 250 mg PO DAILY 90 days HPI 3 mth follow up breast exam HPI Details She is here for follow-up a follow-up for history of left breast cancer. She had lumpectomy and sentinel biopsy for left breast invasive cancer last Oct, 2021. She had a mammogram 3 weeks ago and was unremarkable. She had completed her chemotherapy as well as radiation to the left breast She says she feels well and denies any palpable breast masses or any nipple or skin changes. [facility] Medical History (Updated 12/21/22 @ 14:19 by Garland Key MD) Abnormal mammogram of left breast Allergic rhinitis Anemia Breast cancer, left Dyslipidemia Gastritis History of breast cancer Hyperlipidemia Hypertension Physical exam Type 2 diabetes mellitus Surgical History H/O colonoscopy History of esophagogastroduodenoscopy (EGD) History of lumpectomy of left breast History of surgery History of tubal ligation Hx of bilateral cataract extraction Family History Father Diabetes Hypertension Mother Diabetes Hypertension Chronic mental illness Brother In good health Brother In good health Sister In good health Son In good health Son In good health Son In good health Social History Household Members: Spouse Housing: House Are you a primary pharmacist critical care to a significant other at home: Yes (mother) Do you presently have visiting nurse or other home services: No Alcohol intake: never Patient Tobacco Use Status: Never used Tobacco e-Cigarette/Vaping Use: Never Used Second Hand Smoke Exposure: No service: No Current occupational status: unemployed Cognitive needs: No Hearing needs: No Vision needs: No Review of Systems Const Denies chills and Denies fever(s) Card Denies chest pain, Denies dyspnea and Denies dyspnea on exertion Resp Denies cough, Denies dyspnea and Denies dyspnea on exertion GI Denies hematochezia and Denies change in bowel habits Denies hematuria Musc Denies back pain and Denies limited range of motion Neuro Denies focal weakness and Denies convulsions Psych Denies depression and Denies mood swings Physical Exam Vital Signs: Last Vital Signs Pulse 68 12/21/22 13:45 BP 110/59 L 12/21/22 13:45 BMI result Body Mass Index 27.6 Const General: comfortable and no acute distress Orientation/consciousness: patient oriented x3 Neck Neck: Yes no lymphadenopathy Chest Other: No palpable breast masses, no nipple or skin changes, Port-A-Cath on the right anterior chest wall Resp Auscultation: clear to auscultation bilaterally Cardio Rhythm: regular rhythm GI Palpation (GI): Soft to palpation, nontender and no guarding Neuro General: patient oriented x3 Assessment & Plan Assessment & Plan (1) History of breast cancer: Code(s): Z85.3 - Personal history of malignant neoplasm of breast Plan: She has a 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 She has finished chemotherapy and radiation Her last mammogram last November, was unremarkable without any evidence of malignancy. She is recommended to undergo IUD bilateral mammogram Current physical exam is unremarkable with no palpable breast masses or any nipple or skin changes. She is to continue to follow-up with oncology with Dr. Mendoza. I will see her in the office in about 6 months. Coding Level of Care Code Est Pt Level 3 (27216) Diagnoses History of breast cancer Z85.3
[2022-12-21 13:45] VITALS: BP 110/59; PULSE 68; BMI 27.6
== END 2022-12-21 14:19 | disposition home or self-care (01) ==
PROVIDERS: PCP Internal Medicine; Visit Provider Surgery
DX: Z85.3 Personal history of malignant neoplasm of breast (principal)
CPT/HCPCS: 99213

== ENCOUNTER → 2022-12-21 13:33 | Outpatient (BNVA) | payer OTHER, SELFPAY | PROVIDERS: PCP Internal Medicine; Visit Provider Surgery | DX: Z85.3 Personal history of malignant neoplasm of breast (principal) | CPT/HCPCS: 99212 ==

== ENCOUNTER 2023-01-01 14:07 | Emergency (ER) | payer OTHER, SELFPAY ==
[2023-01-01 14:36] VITALS: BP 110/61; PULSE 91; RESP 16; TEMP 36.4; O2SAT 99; BMI 26.6
--- NOTE | 2023-01-01 14:36 | ED.NAVMDI ---
HPI - Nausea/Vomiting/Diarrhea General Chief complaint: Abdominal Pain Stated complaint: Stomach virus/Headache Time Seen by Provider: 01/01/23 16:10 Source: patient Mode of arrival: ambulatory Limitations: no limitations History of Present Illness HPI Narrative: Patient otherwise healthy been having nausea epigastric pain and diarrhea since last night started with pain followed by diarrheas more than 10 times then vomited 1 time and now feeling nauseated no other family member sick also complaining of mild headache and tiredness, no urinary complaints no fever or chills no recent travel or sea food intake Related Data Home Medications Medication Instructions Recorded Confirmed blood sugar diagnostic #10 ea 03/31/20 12/21/22 lancets 28 gauge #100 ea 03/31/20 12/21/22 ascorbic acid (vitamin C) 500 mg 500 mg PO DAILY 07/07/20 12/21/22 tablet Previous Rx's Medication Instructions Recorded cyanocobalamin (vitamin B-12) 500 500 mcg PO DAILY #90 tabs 10/20/20 mcg tablet (Vitamin B-12) lorazepam 0.5 mg tablet (Ativan) 0.5 mg PO BID PRN anxiety 30 days 11/09/21 #15 tabs omeprazole 20 mg capsule,delayed 20 mg PO DAILY #30 caps 01/24/22 release metformin 1,000 mg tablet 1,000 mg PO BID 30 days #60 tabs 08/18/22 empagliflozin 10 mg tablet 10 mg PO QAM #30 tabs 08/27/22 (Jardiance) blood sugar diagnostic (FreeStyle 1 strip miscellaneous TID for 09/02/22 Lite Strips) diabetes mellitus #100 ea hydrocortisone 1 % topical cream 1 appl topical TID PRN skin 09/06/22 (Anti-Itch (hydrocortisone)) irritation 30 days #28.4 grams terbinafine HCl 250 mg tablet 250 mg PO DAILY 90 days #90 tabs 09/06/22 ferrous sulfate 325 mg (65 mg 325 mg PO BID 90 days #180 tabs 10/26/22 iron) tablet atorvastatin 40 mg tablet 40 mg PO DAILY #90 tabs 11/11/22 clotrimazole-betamethasone 1 1 appl topical BID 30 days #15 11/30/22 %-0.05 % topical cream grams lisinopril 10 mg tablet 10 mg PO DAILY 90 days #90 tabs 11/30/22 Allergies Allergy/AdvReac Type Severity Reaction Status Date / Time No Known Allergies Allergy Verified 01/01/23 14:39 [No Known Allergies*] Review of Systems Review of Systems: Yes all other systems are reviewed and are negative [facility] Past Medical History Medical History Abnormal mammogram of left breast Allergic rhinitis Anemia Breast cancer, left Dyslipidemia Gastritis History of breast cancer Hyperlipidemia Hypertension Physical exam Type 2 diabetes mellitus Surgical History H/O colonoscopy History of esophagogastroduodenoscopy (EGD) History of lumpectomy of left breast History of surgery History of tubal ligation Hx of bilateral cataract extraction Family History Family History Father Diabetes Hypertension Mother Diabetes Hypertension Chronic mental illness Brother In good health Brother In good health Sister In good health Son In good health Son In good health Son In good health Social History Social History Household Members: Spouse Housing: House Are you a primary family member caretaker to a significant other at home: Yes (mother) Do you presently have visiting nurse or other home services: No Alcohol intake: never Patient Tobacco Use Status: Never used Tobacco Smoked in Last 30 Days: No e-Cigarette/Vaping Use: Never Used Second Hand Smoke Exposure: No Use of substances other than those prescribed or required for medical reasons: No Advance Directives: No Advance Directives Information Provided: No service: No Current occupational status: unemployed Cognitive needs: No Hearing needs: No Vision needs: No Physical Exam Vital Signs: Vital Signs: Last Vital Signs Temp 99.6 F 01/01/23 17:25 Pulse 91 01/01/23 17:25 Resp 16 01/01/23 17:25 BP 106/63 01/01/23 17:25 Pulse Ox 96 01/01/23 17:25 O2 Del Method Room Air 01/01/23 17:25 BMI result Body Mass Index 26.6 Appearance: Alert. Oriented X3. No acute distress. Eyes no pallor or icterus ENT: Pharynx normal. Oral Mucosa moist Neck: Normal inspection. Neck supple. CVS: Normal heart rate and rhythm. Pulses normal. Respiratory: No respiratory distress. Equal air entry bilateral, no wheezing/rales/rhonchi Abdomen: Soft , mild epigastric tenderness Bowel sounds are present, no mass palpable, no CVA tenderness Skin: Skin warm and dry. Normal skin color. Normal skin turgor. Extremities: No lower extremity edema. No calf tenderness Neuro: Oriented X 3. No motor deficit. Course Course Course Narrative: This is a rapid medical exam. Deferred additional HPI, ROS, PE to primary provider. 62 yo female with history of breast cancer in remission, CLAIRE, DM, HTN, HLD here with upper abdominal pain (points to epigastric), vomiting, diarrhea, headache since last evening. Had rice/beans, pork for dinner. NO sick contact. Will check labs, UA, covid testing. WIll give SL zofran. VSS Medications Administered Discontinued Medications Generic Name Dose Route Start Last Admin Trade Name Freq PRN Reason Stop Dose Admin Acetaminophen/Butalbital/Caffeine 1 tab 01/01/23 16:51 01/01/23 17:23 Butalb/Acetamin/Caff 50/325/40 Tablet PO 01/01/23 16:52 1 tab ONCE ONE Administration Ondansetron HCl 4 mg 01/01/23 14:38 01/01/23 14:54 Ondansetron Odt 4 Mg Tab.Rapdis TRANSLINGU 01/01/23 14:39 4 mg ONCE ONE Administration Medical Decision Making Lab Data MDM Lab Attestation statement: I reviewed the patient's lab results. 01/01/23 14:45 01/01/23 14:45 Labs: Lab Results 01/01/23 01/01/23 01/01/23 Range/Units 14:45 14:45 14:45 WBC 5.0 (4.8-10.8) X10*3/uL RBC 3.89 L (4.20-5.50) X10*6/uL Hgb 11.1 L (12.0-16.0) g/dl Hct 35.0 L (37.0-47.0) % MCV 90.0 (80.0-98.0) fL MCH 28.5 (27.0-33.0) pg MCHC 31.7 (31.0-35.0) g/dl RDW 14.1 (11.0-16.0) % Plt Count 247 (160-400) X10*3/uL MPV 8.8 L (9.4-12.3) fL Immature Gran % (Auto) 0.2 (0.0-0.4) % Neut % (Auto) 76.4 H (45-73) % Lymph % (Auto) 15.4 L (20-40) % Sutter % (Auto) 7.8 (2-11) % Eos % (Auto) 0.0 (0-4) % Baso % (Auto) 0.2 (0-2) % Lymph # (Auto) 0.8 L (1.2-4.9) X10*3/uL Sutter # (Auto) 0.4 (0.1-1.2) X10*3/uL Eos # (Auto) 0.0 (0.0-0.4) X10*3/uL Baso # (Auto) 0.0 (0.0-0.2) X10*3/uL Abs Immat Gran (auto) 0.01 (0.00-0.03) X10*3/uL Absolute Neuts (auto) 3.8 (2.0-8.3) x10*3/uL Absolute Nucleated RBC 0.000 (0.0-0.012) X10*3/uL Nucleated RBC % (auto) 0.0 (0.0-0.2) /100WBC Sodium 136 (135-145) mmol/L Potassium 4.7 (3.3-5.1) mmol/L Chloride 104 (96-108) mmol/L Carbon Dioxide 22 (22-29) mmol/L Anion Gap 15 (12-20) BUN 24 H (9-16) mg/dL Creatinine 0.79 (0.5-1.4) mg/dL Estim Creat Clear Calc 66.6 Estimated GFR > 60 Random Glucose 165 H (60-115) mg/dL Calcium 9.6 (8.4-10.2) mg/dL Total Bilirubin 0.3 (0.0-1.0) mg/dL Direct Bilirubin 0.1 (0.0-0.5) mg/dL AST 13 (5-31) U/L ALT 11 (0-31) U/L Alkaline Phosphatase 74 (39-117) U/L Total Protein 7.0 (6.5-8.0) g/dL Albumin 4.0 (3.5-5.0) g/dL Lipase 19 (8-78) U/L Urine Color Urine Appearance Urine pH (5.0-9.0) Ur Specific [place] (1.005-1.025) Urine Protein (Neg-Trace) mg/dL Urine Glucose (UA) (Negative) mg/dL Urine Ketones (Negative) mg/dL Urine Blood (Negative) Urine Nitrite (Negative) Ur Leukocyte Esterase (Negative) Urine RBC (0-2) /HPF Urine WBC (0-5) /HPF Ur Squamous Epith Cells (0-2) /HPF Urine Bacteria (None Seen) Hyaline Casts (0-2) /LPF COVID-19 (YAMILKA) Negative (Negative) COVID-19 Clin Com See Note 01/01/23 Range/Units 15:34 WBC (4.8-10.8) X10*3/uL RBC (4.20-5.50) X10*6/uL Hgb (12.0-16.0) g/dl Hct (37.0-47.0) % MCV (80.0-98.0) fL MCH (27.0-33.0) pg MCHC (31.0-35.0) g/dl RDW (11.0-16.0) % Plt Count (160-400) X10*3/uL MPV (9.4-12.3) fL Immature Gran % (Auto) (0.0-0.4) % Neut % (Auto) (45-73) % Lymph % (Auto) (20-40) % Sutter % (Auto) (2-11) % Eos % (Auto) (0-4) % Baso % (Auto) (0-2) % Lymph # (Auto) (1.2-4.9) X10*3/uL Sutter # (Auto) (0.1-1.2) X10*3/uL Eos # (Auto) (0.0-0.4) X10*3/uL Baso # (Auto) (0.0-0.2) X10*3/uL Abs Immat Gran (auto) (0.00-0.03) X10*3/uL Absolute Neuts (auto) (2.0-8.3) x10*3/uL Absolute Nucleated RBC (0.0-0.012) X10*3/uL Nucleated RBC % (auto) (0.0-0.2) /100WBC Sodium (135-145) mmol/L Potassium (3.3-5.1) mmol/L Chloride (96-108) mmol/L Carbon Dioxide (22-29) mmol/L Anion Gap (12-20) BUN (9-16) mg/dL Creatinine (0.5-1.4) mg/dL Estim Creat Clear Calc Estimated GFR Random Glucose (60-115) mg/dL Calcium (8.4-10.2) mg/dL Total Bilirubin (0.0-1.0) mg/dL Direct Bilirubin (0.0-0.5) mg/dL AST (5-31) U/L ALT (0-31) U/L Alkaline Phosphatase (39-117) U/L Total Protein (6.5-8.0) g/dL Albumin (3.5-5.0) g/dL Lipase (8-78) U/L Urine Color Yellow Urine Appearance Clear Urine pH 5.0 (5.0-9.0) Ur Specific [place] >= 1.030 H (1.005-1.025) Urine Protein Trace (Neg-Trace) mg/dL Urine Glucose (UA) >=1000 H (Negative) mg/dL Urine Ketones Negative (Negative) mg/dL Urine Blood Negative (Negative) Urine Nitrite Negative (Negative) Ur Leukocyte Esterase Small (1+) H (Negative) Urine RBC 0-2 (0-2) /HPF Urine WBC 11-20 H (0-5) /HPF Ur Squamous Epith Cells 6-10 (0-2) /HPF Urine Bacteria Trace (None Seen) Hyaline Casts 3-5 (0-2) /LPF COVID-19 (YAMILKA) (Negative) COVID-19 Clin Com Discharge Plan Discharge Clinical Impression: Gastroenteritis Prescriptions: No Action omeprazole 20 mg capsule,delayed release(DR/EC) 20 mg PO DAILY Qty: 30 6RF metformin 1,000 mg tablet 1,000 mg PO BID 30 Days Qty: 60 1RF Jardiance 10 mg tablet 10 mg PO QAM Qty: 30 6RF FreeStyle Lite Strips Strip 1 strip miscellaneous TID Qty: 100 3RF ferrous sulfate 325 mg (65 mg iron) tablet 325 mg PO BID 90 Days Qty: 180 3RF atorvastatin 40 mg tablet 40 mg PO DAILY Qty: 90 1RF lisinopril 10 mg tablet 10 mg PO DAILY 90 Days Qty: 90 0RF clotrimazole-betamethasone 1-0.05 % cream 1 appl topical BID 30 Days Qty: 15 1RF cyanocobalamin (vitamin B-12) [Vitamin B-12] 500 mcg Tablet 500 mcg PO DAILY Qty: 90 3RF ascorbic acid (vitamin C) 500 mg Tablet 500 mg PO DAILY (DME) FreeStyle Lite Strips Strip See Rx Instructions .ROUTE .MEDSUPPLY Qty: 10 Rx Instructions: As directed (DME) lancets 28 gauge misc See Rx Instructions topical TID Qty: 100 Rx Instructions: As directed lorazepam [Ativan] 0.5 mg tablet 0.5 mg PO BID PRN (Reason: anxiety) 30 Days Qty: 15 0RF hydrocortisone [Anti-Itch (HC)] 1 % cream 1 appl topical TID PRN (Reason: skin irritation) 30 Days Qty: 28.4 0RF terbinafine HCl 250 mg tablet 250 mg PO DAILY 90 Days Qty: 90 0RF
[2023-01-01 14:50] LABS: MANUAL DIFF FLAG NO
[2023-01-01 14:51] LABS: Basophils Percent Auto 0.2 % (0-2); Hemoglobin 11.1 g/dl (12.0-16.0); Imm Gran Abs Auto 0.01 X10*3/uL (0.00-0.03); Imm Gran Pct Auto 0.2 % (0.0-0.4); Lymphocytes Absolute Auto 0.8 X10*3/uL (1.2-4.9); Lymphocytes Percent Auto 15.4 % (20-40); Mean Corpuscular HGB Conc 31.7 g/dl (31.0-35.0); Mean Corpuscular Hemoglobin 28.5 pg (27.0-33.0); Mean Platelet Volume 8.8 fL (9.4-12.3); Monocytes Absolute Auto 0.4 X10*3/uL (0.1-1.2); Monocytes Percent Auto 7.8 % (2-11); Neutrophils Absolute Auto 3.8 x10*3/uL (2.0-8.3); Neutrophils Percent Auto 76.4 % (45-73); Platelet Count 247 X10*3/uL (160-400); Red Blood Count 3.89 X10*6/uL (4.20-5.50); Red Cell Distribution Width 14.1 % (11.0-16.0)
[2023-01-01] MEDS: Ondansetron ODT 4 MG TAB.RAPDIS TRANSLINGU (14:54)
[2023-01-01 15:04] LABS: COVID-19 Test Negative (Negative); IDNOW Serial# 16C4AD1C
[2023-01-01 15:08] LABS: Alanine Aminotransferase 11 U/L (0-31); Alkaline Phosphatase 74 U/L (39-117); Anion Gap 15 (12-20); Aspartate Amino Transferase 13 U/L (5-31); Bilirubin Direct 0.1 mg/dL (0.0-0.5); Bilirubin Total 0.3 mg/dL (0.0-1.0); Blood Urea Nitrogen 24 mg/dL (9-16); Calcium 9.6 mg/dL (8.4-10.2); Carbon Dioxide 22 mmol/L (22-29); Chloride 104 mmol/L (96-108); Creatinine Clr Calc Pharmacy 66.6; Estimated Glomerular Filt Rate > 60; Glucose Random 165 mg/dL (60-115); Lipase 19 U/L (8-78); Potassium 4.7 mmol/L (3.3-5.1); Sodium 136 mmol/L (135-145)
[2023-01-01 15:11] VITALS: BP 106/56; PULSE 91; RESP 18; TEMP 36.8; O2SAT 98
[2023-01-01 15:44] LABS: Appearance Urine Clear; Color Urine Yellow; Glucose Urine UA >=1000 mg/dL (Negative); Leukocyte Esterase Urine Small (1+) (Negative); Nitrite Urine Negative (Negative); Specific Gravity - Urine >= 1.030 (1.005-1.025); UMIC TRIGGER UACC YES; Urine Blood Negative (Negative); Urine Ketones Negative (Negative); Urine Protein Trace mg/dL (Neg-Trace)
[2023-01-01 16:18] LABS: Bacteria Urine Trace (None Seen); RBC Urine 0-2 /HPF (0-2); UACC Culture Trigger YES
[2023-01-01] MEDS: Butalb/Acetamin/Caff 50/325/40 TABLET 1 TAB PO (17:23)
[2023-01-01 17:25] VITALS: BP 106/63; PULSE 91; RESP 16; TEMP 37.6; O2SAT 96
[2023-01-01] MEDS: Magnesium Hydrox/Alum Hydrox 30 ML ORAL.SUSP PO (18:05)
== END 2023-01-01 19:04 | disposition home or self-care (01) ==
PROVIDERS: Nurse Practitioner Family; Emergency Provider Internal Medicine; PCP Internal Medicine
DX: K52.9 Noninfective gastroenteritis and colitis, unspecified (principal); Z20.822 Contact with and (suspected) exposure to COVID-19; Z20.828 Contact with and (suspected) exposure to other viral communicable diseases; Z79.899 Other long term (current) drug therapy
CPT/HCPCS: 80048; 80076; 81001; 83690; 85025; 87086; 87088; 87186; 87635; 99284

== ENCOUNTER 2023-01-19 14:10 | Outpatient (AMB) | payer OTHER, SELFPAY ==
--- NOTE | 2023-01-19 14:15 | MHC.PC.OV ---
Vital Signs 01/19/23 14:41 Height 5 ft 2 in Weight 150 lb 4 oz BMI 27.5 BP 110/58 L Blood Pressure Location Lt brachial Position Sitting Respiration 16 Pulse 65 Pulse Source Pulse Oximeter Pulse Oximetry (%) 97 Oxygen Delivery Method Room Air Intake Visit Reasons: [facility] 01/02 Vomiting/Nausea Intake Note: Patient is here to follow-up after a visit the emergency department at [facility] on 01/02/23 for vomiting and nausea. Orthotic Technician Required: No Accompanied by: Self / Same As Patient Allergies No Known Allergies [No Known Allergies*] Allergy (Verified 01/19/23 14:59) Medication List - Last Reconciled 01/19/23 by Joycelyn Huerta MD ascorbic acid (vitamin C) 500 mg PO DAILY atorvastatin 40 mg PO DAILY blood sugar diagnostic As directed blood sugar diagnostic (FreeStyle Lite Strips) 1 strip miscellaneous TID cefuroxime axetil 250 mg PO BID 7 days clotrimazole-betamethasone 1-0.05 % 1 appl topical BID 30 days cyanocobalamin (vitamin B-12) (Vitamin B-12) 500 mcg PO DAILY empagliflozin (Jardiance) 10 mg PO QAM ferrous sulfate 325 mg PO BID 90 days hydrocortisone 1% (Anti-Itch (hydrocortisone)) 1 appl topical TID PRN 30 days lancets As directed lisinopril 10 mg PO DAILY 90 days lorazepam (Ativan) 0.5 mg PO BID PRN 30 days metformin 1,000 mg PO BID 90 days omeprazole 20 mg PO DAILY ondansetron 4 mg PO Q6-8H PRN terbinafine HCl 250 mg PO DAILY 90 days Tobacco use date assessed: 07/25/22 Fall risk assessment: No Falls in past year Last assessed Fall Risk: 01/19/23 Dental Screening Dental Screen Date: 01/19/23 Did you have a dental visit in the last 12 months?: No Did you have a dental problem in the last 6 months where you did not have access to dental care?: No Was dental information given to patient?: Patient has dentist HPI HPI Comments History of Present Illness Details This is a 62-year-old female with diabetes mellitus type 2, hypertension, hyperlipidemia and iron-deficiency anemia that comes today for follow-up on her conditions. She went to ER about a month ago due to nausea and vomiting and was found to have urinary tract infection which completed antibiotics. A1c stable. Blood pressure well control. Lipid panel will be monitor and her LDL goal should be less than 70. Hemoglobin well controlled with ferrous sulfate. No chest pain or shortness of breath. [facility] Medical History Abnormal mammogram of left breast Allergic rhinitis Anemia Breast cancer, left Dyslipidemia Gastritis History of breast cancer Hyperlipidemia Hypertension Physical exam Type 2 diabetes mellitus Surgical History H/O colonoscopy History of esophagogastroduodenoscopy (EGD) History of lumpectomy of left breast History of surgery History of tubal ligation Hx of bilateral cataract extraction Family History Father Diabetes Hypertension Mother Diabetes Hypertension Chronic mental illness Brother In good health Brother In good health Sister In good health Son In good health Son In good health Son In good health Social History Household Members: Spouse Housing: House Are you a primary medicare insurance specialist to a significant other at home: Yes (mother) Do you presently have visiting nurse or other home services: No Alcohol intake: never Patient Tobacco Use Status: Never used Tobacco e-Cigarette/Vaping Use: Never Used Second Hand Smoke Exposure: No service: No Current occupational status: unemployed Cognitive needs: No Hearing needs: No Vision needs: No Questionnaire Thrive Questionnaire Date Thrive assessed: 07/25/22 ERIN-7 AMB Questionnaire ERIN-7 Date ERIN - 7 assessed: 07/25/22 Source: Developed by Drs. Noe Bonner, Fifi Figueroa, Bertrand Cook and colleagues, with an educational adam from [employer]. Review of Systems Const All systems reviewed & are unremarkable except as noted in HPI and below Eyes Reports no additional complaints, Denies change in vision and Denies other visual disturbances Card Denies chest pain at rest, Denies chest pain with activity, Denies edema, Denies irregular heart rhythm, Denies claudication, Denies dyspnea, Denies dyspnea on exertion, Denies orthopnea, Denies paroxysmal nocturnal dyspnea and Denies slow heart rate Resp Denies cough, Denies dyspnea and Denies dyspnea on exertion GI Denies abdominal pain, Denies change in bowel habits, Denies excessive flatus, Denies nausea and Denies vomiting Denies urinary incontinence, Denies urinary hesitancy and Denies urinary urgency Musc Denies abnormal gait, Denies atrophy, Denies deformity and Denies limited range of motion Skin/Breast Denies bleeding lesions, Denies changing lesions and Denies rash Neuro Denies abnormal gait and Denies lack of coordination Physical exam (Primary Care) Vital Signs: Last Vital Signs Pulse 65 01/19/23 14:41 Resp 16 01/19/23 14:41 BP 110/58 L 01/19/23 14:41 Pulse Ox 97 01/19/23 14:41 Oxygen Delivery Method Room Air 01/19/23 14:41 BMI result Body Mass Index 27.5 Tobacco/Smoking Status: Tobacco use Status Tobacco use date assessed 07/25/22 01/19/23 14:15 Patient Tobacco Use Status Never used Tobacco 01/19/23 14:15 e-Cigarette/Vaping Use Never Used 01/19/23 14:15 Thrive Assessment: Date of Thrive Assessment Date Thrive assessed 07/25/22 01/19/23 14:15 Eyes General: appearance normal, both eyes and all related structures Eyelids: Yes eyelids normal Conjunctivae: conjunctivae normal Neck Neck: Yes normal visual inspection and Yes supple Resp Effort & Inspection: normal respiratory effort Auscultation: clear to auscultation bilaterally Cardio Jugular venous distension: no JVD Rate: regular rate Rhythm: regular rhythm Heart sounds: S1 normal heart sound present and S2 normal heart sound present Extrem General: Yes full ROM Results AMB Urinalysis, Automated UA Leukoctes 0 Leydi/uL Last Edit by PATRICIA Delatorre on 01/19/23 15:14 UA Nitrite Negative Last Edit by PATRICIA Delatorre on 01/19/23 15:14 UA Urobilinogen 0 mg/dL Last Edit by PATRICIA Delatorre on 01/19/23 15:14 UA Protein 0 mg/dL Last Edit by PATRICIA Delatorre on 01/19/23 15:14 UA pH 6.0 Last Edit by PATRICIA Delatorre on 01/19/23 15:14 UA Blood 0 Mahad/uL Last Edit by PATRICIA Delatorre on 01/19/23 15:14 UA Specific [place] 1.020 Last Edit by PATRICIA Delatorre on 01/19/23 15:14 UA Ketone Negative Last Edit by PATRICIA Delatorre on 01/19/23 15:14 UA Bilirubin 0 mg/dL Last Edit by PATRICIA Delatorre on 01/19/23 15:14 UA Glucose 1000 mg/dL Last Edit by PATRICIA Delatorre on 01/19/23 15:14 Results Reviewed Results Reviewed: Laboratory Last Values Urine pH (Auto) 6.0 01/19/23 15:12 Specific [place] (Auto) 1.020 01/19/23 15:12 Urine Protein (Auto) 0 mg/dL 01/19/23 15:12 Glucose (UA)(Auto) 1000 mg/dL H* 01/19/23 15:12 Urine Ketones (Auto) Negative 01/19/23 15:12 Urine Blood (Auto) 0 Mahad/uL 01/19/23 15:12 Urine Nitrite (Auto) Negative 01/19/23 15:12 Urine Bilirubin (Auto) 0 mg/dL 01/19/23 15:12 Urine Urobilinogen (Auto) 0 mg/dL 01/19/23 15:12 Leukocyte Esterase (Auto) 0 Leydi/uL 01/19/23 15:12 Assessment and Plan Assessment & Plan (1) Dysuria: Code(s): R30.0 - Dysuria (2) Diabetes mellitus: Code(s): E11.9 - Type 2 diabetes mellitus without complications Qualifiers: Diabetes mellitus complication status: without complication Diabetes mellitus terminal system operator insulin use: without terminal system operator use Diabetes mellitus type: type 2 Qualified Code(s): E11.9 - Type 2 diabetes mellitus without complications Plan: Continue Jardiance and metformin. A1c goal is equal or less than 7%. (3) Iron deficiency anemia: Code(s): D50.9 - Iron deficiency anemia, unspecified Qualifiers: Iron deficiency anemia type: unspecified iron deficiency Qualified Code(s): D50.9 - Iron deficiency anemia, unspecified Plan: Continue ferrous sulfate. Hemoglobin goal between 11 to 12. (4) Hypertension: Code(s): I10 - Essential (primary) hypertension Qualifiers: Hypertension type: primary hypertension Qualified Code(s): I10 - Essential (primary) hypertension Plan: Continue lisinopril. Blood pressure goal is equal or less than 130/80. (5) Dyslipidemia: Code(s): E78.5 - Hyperlipidemia, unspecified Plan: Continue statins. LDL goal is less than 70. Orders: Orders AMB Urinalysis Automated 01/19/23 R30.0 - Dysuria Coding Level of Care Code Est Pt Level 4 (09538) Diagnoses Dysuria R30.0 Diabetes mellitus E11.9 Diabetes mellitus complication status: without complication Diabetes mellitus terminal system operator insulin use: without terminal system operator use Diabetes mellitus type: type 2 Iron deficiency anemia D50.9 Iron deficiency anemia type: unspecified iron deficiency Hypertension I10 Hypertension type: primary hypertension Dyslipidemia E78.5 Time Spent (min) 23
[2023-01-19 14:41] VITALS: BP 110/58; PULSE 65; RESP 16; O2SAT 97; BMI 27.5
== END 2023-01-19 15:20 | disposition home or self-care (01) ==
PROVIDERS: PCP Internal Medicine; Visit Provider Internal Medicine
DX: R30.0 Dysuria (principal); E11.9 Type 2 diabetes mellitus without complications; D50.9 Iron deficiency anemia, unspecified; I10 Essential (primary) hypertension; E78.5 Hyperlipidemia, unspecified
CPT/HCPCS: 81003; 99214

== ENCOUNTER 2023-03-06 15:17 | Outpatient (AMB) | payer MEDICARE, MEDICAID, SELFPAY ==
[2023-03-06 15:24] VITALS: BP 92/60; BMI 27.4
--- NOTE | 2023-03-06 15:24 | MHC.PC.OV ---
Vital Signs 03/06/23 15:24 Height 5 ft 2 in Weight 150 lb BMI 27.4 BP 92/60 Blood Pressure Location Lt brachial Position Sitting Intake Visit Reasons: itchy rash Left Arm Intake Note: Patient here for rash on left arm Combination Machine Tool Operator Required: No Accompanied by: Self / Same As Patient Allergies No Known Allergies [No Known Allergies*] Allergy (Verified 03/06/23 15:42) Medication List - Last Reconciled 03/06/23 by Joycelyn Huerta MD ascorbic acid (vitamin C) 500 mg PO DAILY atorvastatin 40 mg PO DAILY blood sugar diagnostic As directed blood sugar diagnostic (FreeStyle Lite Strips) 1 strip miscellaneous TID clotrimazole-betamethasone 1-0.05 % 1 appl topical BID 30 days cyanocobalamin (vitamin B-12) (Vitamin B-12) 500 mcg PO DAILY empagliflozin (Jardiance) 10 mg PO QAM ferrous sulfate 325 mg PO BID 90 days hydrocortisone 1% (Anti-Itch (hydrocortisone)) 1 appl topical TID PRN 30 days lancets As directed lisinopril 10 mg PO DAILY 90 days lorazepam (Ativan) 0.5 mg PO BID PRN 30 days metformin 1,000 mg PO BID 90 days omeprazole 20 mg PO DAILY ondansetron 4 mg PO Q6-8H PRN terbinafine HCl 250 mg PO DAILY 90 days Tobacco use date assessed: 07/25/22 Fall risk assessment: No Falls in past year Last assessed Fall Risk: 03/06/23 Dental Screening Dental Screen Date: 03/06/23 Did you have a dental visit in the last 12 months?: Yes Did you have a dental problem in the last 6 months where you did not have access to dental care?: No Was dental information given to patient?: Patient has dentist HPI HPI Comments History of Present Illness Details This is a 63-year-old female with diabetes mellitus type 2, hypertension and GERD that comes today complaining of a rash in the left arm that is pruritic and occasionally bhatti. She has tried hydrocortisone cream with no significant relief. This has been present for over a week. For her diabetes A1c is elevated and was advised to the low-carbohydrate diet. Blood pressure stable. GERD stable with medications. No chest pain or shortness of breath. [facility] Medical History (Updated 03/06/23 @ 16:39 by Joycelyn Huerta MD) History of breast cancer Physical exam Breast cancer, left Abnormal mammogram of left breast Dyslipidemia Allergic rhinitis Gastritis Hyperlipidemia Anemia Type 2 diabetes mellitus Hypertension Surgical History History of lumpectomy of left breast Hx of bilateral cataract extraction History of esophagogastroduodenoscopy (EGD) H/O colonoscopy History of surgery History of tubal ligation Family History Father Diabetes Hypertension Mother Diabetes Hypertension Chronic mental illness Brother In good health Brother In good health Sister In good health Son In good health Son In good health Son In good health Social History Household Members: Spouse Housing: House Are you a primary rn critical care to a significant other at home: Yes (mother) Do you presently have visiting nurse or other home services: No Alcohol intake: never Patient Tobacco Use Status: Never used Tobacco e-Cigarette/Vaping Use: Never Used Second Hand Smoke Exposure: No service: No Current occupational status: unemployed Cognitive needs: No Hearing needs: No Vision needs: No Questionnaire Thrive Questionnaire Date Thrive assessed: 07/25/22 ERIN-7 AMB Questionnaire ERIN-7 Date ERIN - 7 assessed: 07/25/22 Source: Developed by Drs. Noe Bonner, Fifi Figueroa, Bertrand Cook and colleagues, with an educational adam from [employer]. Review of Systems Const All systems reviewed & are unremarkable except as noted in HPI and below Eyes Reports no additional complaints, Denies change in vision and Denies other visual disturbances Card Denies chest pain at rest, Denies chest pain with activity, Denies edema, Denies irregular heart rhythm, Denies claudication, Denies dyspnea, Denies dyspnea on exertion, Denies orthopnea, Denies paroxysmal nocturnal dyspnea and Denies slow heart rate Resp Denies cough, Denies dyspnea and Denies dyspnea on exertion GI Denies abdominal pain, Denies change in bowel habits, Denies excessive flatus, Denies nausea and Denies vomiting Denies urinary incontinence, Denies urinary hesitancy and Denies urinary urgency Musc Denies abnormal gait, Denies atrophy, Denies deformity and Denies limited range of motion Skin/Breast Denies bleeding lesions, Denies changing lesions and Reports rash Neuro Denies abnormal gait and Denies lack of coordination Physical exam (Primary Care) Vital Signs: Last Vital Signs BP 92/60 03/06/23 15:24 BMI result Body Mass Index 27.4 Tobacco/Smoking Status: Tobacco use Status Tobacco use date assessed 07/25/22 03/06/23 15:27 Patient Tobacco Use Status Never used Tobacco 03/06/23 15:27 e-Cigarette/Vaping Use Never Used 03/06/23 15:27 Thrive Assessment: Date of Thrive Assessment Date Thrive assessed 07/25/22 03/06/23 15:27 Eyes General: appearance normal, both eyes and all related structures Eyelids: Yes eyelids normal Conjunctivae: conjunctivae normal Neck Neck: Yes normal visual inspection and Yes supple Resp Effort & Inspection: normal respiratory effort Auscultation: clear to auscultation bilaterally Cardio Jugular venous distension: no JVD Rate: regular rate Rhythm: regular rhythm Heart sounds: S1 normal heart sound present and S2 normal heart sound present Skin Other: Circular erythematous rash in left forearm Extrem General: Yes full ROM Office Procedures Flu Questionnaire Does the patient have a severe egg allergy?: No Results AMB Hemoglobin A1c AMB Hemoglobin A1c 7.7 % Last Edit by JACOB Juarez on 03/06/23 15:51 Immunizations flu vacc [id number] 6mos up(PF) 60 mcg(15 mcgx4)/0.5 mL IM syringe Performing Provider: Joycelyn Huerta MD [facility] Documented (not given) by: JACOB Juarez on 03/06/23 15:53 Reason Not Given: Not Given Results Reviewed Results Reviewed: Laboratory Last Values Hgb A1c (Clinic) 7.7 % (4.0-6.0) H 03/06/23 15:45 Assessment and Plan Assessment & Plan (1) Rash: Code(s): R21 - Rash and other nonspecific skin eruption Plan: Start cream. (2) Diabetes mellitus: Code(s): E11.9 - Type 2 diabetes mellitus without complications Qualifiers: Diabetes mellitus type: type 2 Diabetes mellitus [facility] insulin use: without [facility] use Diabetes mellitus complication status: without complication Qualified Code(s): E11.9 - Type 2 diabetes mellitus without complications Plan: Continue metformin and Jardiance. A1c goal is equal or less than 7%. (3) Hypertension: Code(s): I10 - Essential (primary) hypertension Qualifiers: Hypertension type: primary hypertension Qualified Code(s): I10 - Essential (primary) hypertension Plan: Continue lisinopril. Blood pressure goal is equal or less than 130/80. (4) GERD (gastroesophageal reflux disease): Code(s): K21.9 - Gastro-esophageal reflux disease without esophagitis Plan: Continue PPIs Orders: Orders AMB Hemoglobin A1c Today E11.9 - Type 2 diabetes mellitus without complications Influenza [id number] Immunization Today Z23 - Encounter for immunization Medications: Refilled clotrimazole-betamethasone 1-0.05 % 1 appl topical BID 30 days 15 grams 1RF Coding Level of Care Code Est Pt Level 4 (65029) Diagnoses Rash R21 Type 2 diabetes mellitus without complication, without long-term current use of insulin E11.9 Diabetes mellitus type: type 2 Diabetes mellitus [facility] insulin use: without terminal makeup operator use Diabetes mellitus complication status: without complication Primary hypertension I10 Hypertension type: primary hypertension GERD (gastroesophageal reflux disease) K21.9 Time Spent (min) 20
== END 2023-03-06 15:52 | disposition home or self-care (01) ==
PROVIDERS: PCP Internal Medicine; Visit Provider Internal Medicine
DX: R21 Rash and other nonspecific skin eruption (principal); E11.9 Type 2 diabetes mellitus without complications; I10 Essential (primary) hypertension; K21.9 Gastro-esophageal reflux disease without esophagitis; Z23 Encounter for immunization
CPT/HCPCS: 83036; 90471; 99214

== ENCOUNTER 2023-05-27 07:42 | Outpatient (REF) | payer MEDICARE, MEDICAID, SELFPAY ==
[2023-05-27 07:53] LABS: MANUAL DIFF FLAG NO
[2023-05-27 09:17] LABS: Basophils Percent Auto 0.7 % (0-2); Eosinophils Absolute Auto 0.4 X10*3/uL (0.0-0.4); Eosinophils Percent Auto 7.2 % (0-4); Hematocrit 38.4 % (37.0-47.0); Hemoglobin 11.8 g/dl (12.0-16.0); Imm Gran Abs Auto 0.01 X10*3/uL (0.00-0.03); Imm Gran Pct Auto 0.2 % (0.0-0.4); Lymphocytes Absolute Auto 2.3 X10*3/uL (1.2-4.9); Lymphocytes Percent Auto 40.5 % (20-40); Mean Corpuscular HGB Conc 30.7 g/dl (31.0-35.0); Mean Corpuscular Hemoglobin 28.2 pg (27.0-33.0); Mean Corpuscular Volume 91.6 fL (80.0-98.0); Mean Platelet Volume 9.6 fL (9.4-12.3); Monocytes Absolute Auto 0.5 X10*3/uL (0.1-1.2); Monocytes Percent Auto 8.8 % (2-11); Neutrophils Absolute Auto 2.4 x10*3/uL (2.0-8.3); Neutrophils Percent Auto 42.6 % (45-73); Platelet Count 277 X10*3/uL (160-400); Red Blood Count 4.19 X10*6/uL (4.20-5.50); Red Cell Distribution Width 14.3 % (11.0-16.0); White Blood Count 5.6 X10*3/uL (4.8-10.8)
[2023-05-27 09:39] LABS: Creatinine Urine 60.15 mg/dL; Microalbum/Creatinine Ratio Ur 16.6 ug/mg cr (<30)
[2023-05-27 09:51] LABS: Alanine Aminotransferase 12 U/L (0-31); Albumin Level 4.3 g/dL (3.5-5.0); Alkaline Phosphatase 100 U/L (39-117); Anion Gap 13 (12-20); Aspartate Amino Transferase 16 U/L (5-31); Bilirubin Total 0.2 mg/dL (0.0-1.0); Blood Urea Nitrogen 21 mg/dL (9-16); Calcium 9.7 mg/dL (8.4-10.2); Carbon Dioxide 28 mmol/L (22-29); Chloride 108 mmol/L (96-108); Cholesterol 139 mg/dL (<200); Estimated Glomerular Filt Rate > 60; Glucose Fasting 160 mg/dL (60-99); HDL Cholesterol 63 mg/dL (>40); Iron 53 mcg/dL (30-160); LDL Cholesterol Calculated 55 mg/dL (<100); Percent Iron Saturation 18 % (15-50); Sodium 144 mmol/L (135-145); Total Iron Binding Capacity 295 mcg/dL (228-428); Total Protein 7.2 g/dL (6.5-8.0); Triglycerides 106 mg/dL (<150); Unsaturated Iron Binding 242 ug/dL
[2023-05-27 10:09] LABS: Vitamin D 25-OH Total 53.8 ng/mL (>30)
== END 2023-05-27 07:43 | disposition home or self-care (01) ==
LOC: HO.LAB 07:42
PROVIDERS: PCP Internal Medicine; Visit Provider Internal Medicine
DX: D64.9 Anemia, unspecified (principal); E55.9 Vitamin D deficiency, unspecified; E11.9 Type 2 diabetes mellitus without complications; E78.5 Hyperlipidemia, unspecified
CPT/HCPCS: 36415; 80053; 80061; 82043; 82306; 82570; 83540; 85025

== ENCOUNTER 2023-05-31 12:57 | Outpatient (REF) | payer MEDICARE, MEDICAID, SELFPAY ==
[2023-05-31 17:21] LABS: Vitamin D 25-OH Total 55.6 ng/mL (>30)
[2023-06-01 16:13] LABS: Rubella IgG Antibody >33.00 Index; Rubeola IgG (Measles) >300.00 AU/mL
== END 2023-05-31 12:58 | disposition home or self-care (01) ==
LOC: HO.LAB 12:57
PROVIDERS: PCP Internal Medicine; Visit Provider Internal Medicine
DX: Z01.84 Encounter for antibody response examination (principal); E55.9 Vitamin D deficiency, unspecified
CPT/HCPCS: 36415; 82306; 86735; 86762; 86765

== ENCOUNTER 2023-06-21 12:37 | Outpatient (AMB) | payer SELFPAY ==
--- NOTE | 2023-06-21 12:48 | A.OFFVIS_ITS ---
Intake Vital Signs 06/21/23 12:56 Height 5 ft 2 in Weight 150 lb BMI 27.4 BP 119/63 Blood Pressure Location Rt brachial Position Sitting Pulse 64 Intake Visit Reasons: 6 month follow up breast exam Intake Note: This patient presents for a six month follow-up breast exam. Patient c/o; reports no breast complaints at this time. Tierce Filler Required: Yes Tierce Filler Language: [place] Sawyer Name: Aram Information Interpreted: non-clinical & clinical Accompanied by: Self / Same As Patient Allergies No Known Allergies [No Known Allergies*] Allergy (Verified 06/21/23 12:57) Medication List - Last Reconciled 06/21/23 by Garland Key MD ascorbic acid (vitamin C) 500 mg PO DAILY atorvastatin 40 mg PO DAILY blood sugar diagnostic As directed blood sugar diagnostic (FreeStyle Lite Strips) 1 strip miscellaneous TID clotrimazole-betamethasone 1-0.05 % 1 appl topical BID 30 days cyanocobalamin (vitamin B-12) (Vitamin B-12) 500 mcg PO DAILY empagliflozin (Jardiance) 10 mg PO QAM ferrous sulfate 325 mg PO BID 90 days hydrocortisone 1% (Anti-Itch (hydrocortisone)) 1 appl topical TID PRN 30 days lancets As directed lisinopril 10 mg PO DAILY 90 days lorazepam (Ativan) 0.5 mg PO BID PRN 30 days metformin 1,000 mg PO BID 90 days omeprazole 20 mg PO DAILY ondansetron 4 mg PO Q6-8H PRN terbinafine HCl 250 mg PO DAILY 90 days HPI 6 month follow up breast exam HPI Details She is here for follow-up a follow-up for history of left breast cancer. She had lumpectomy and sentinel biopsy for left breast invasive cancer last Oct, 2021. She had completed her chemotherapy as well as radiation to the left breast Her last mammogram was in November, and this was unremarkable. She says she feels well and denies any palpable breast masses or any nipple or skin changes. Except for sinus issues, she says she feels well overall. [facility] Medical History History of breast cancer Physical exam Breast cancer, left Abnormal mammogram of left breast Dyslipidemia Allergic rhinitis Gastritis Hyperlipidemia Anemia Type 2 diabetes mellitus Hypertension Surgical History History of lumpectomy of left breast Hx of bilateral cataract extraction History of esophagogastroduodenoscopy (EGD) H/O colonoscopy History of surgery History of tubal ligation Family History Father Diabetes Hypertension Mother Diabetes Hypertension Chronic mental illness Brother In good health Brother In good health Sister In good health Son In good health Son In good health Son In good health Social History Household Members: Spouse Housing: House Are you a primary child care centre director to a significant other at home: Yes (mother) Do you presently have visiting nurse or other home services: No Alcohol intake: never Patient Tobacco Use Status: Never used Tobacco e-Cigarette/Vaping Use: Never Used Second Hand Smoke Exposure: No service: No Current occupational status: unemployed Cognitive needs: No Hearing needs: No Vision needs: No Review of Systems Const Denies chills and Denies fever(s) Card Denies chest pain, Denies dyspnea and Denies dyspnea on exertion Resp Denies cough, Denies dyspnea and Denies dyspnea on exertion GI Denies hematochezia and Denies change in bowel habits Denies hematuria Musc Denies back pain and Denies limited range of motion Neuro Denies focal weakness and Denies convulsions Psych Denies depression and Denies mood swings Physical Exam Vital Signs: Last Vital Signs Pulse 64 06/21/23 12:56 BP 119/63 06/21/23 12:56 BMI result Body Mass Index 27.4 Const General: comfortable and no acute distress Orientation/consciousness: patient oriented x3 Neck Neck: Yes no lymphadenopathy Chest Other: No palpable breast masses, no nipple or skin changes Resp Effort & Inspection: normal respiratory effort Auscultation: clear to auscultation bilaterally Cardio Rhythm: regular rhythm GI Palpation (GI): Soft to palpation, nontender and no guarding Neuro General: patient oriented x3 Assessment & Plan Assessment & Plan (1) History of breast cancer: Code(s): Z85.3 - Personal history of malignant neoplasm of breast Plan: She had undergone lumpectomy and radiation for left breast cancer in 2021. She continues to do well. She has no palpable breast masses at this time I reminded her to continue with her yearly screening mammograms. I will see her again in the office in about 6 months. Coding Level of Care Code Est Pt Level 3 (21534) Diagnoses History of breast cancer Z85.3
[2023-06-21 12:56] VITALS: BP 119/63; PULSE 64; BMI 27.4
== END 2023-06-21 13:09 | disposition home or self-care (01) ==
PROVIDERS: PCP Internal Medicine; Visit Provider Surgery
DX: Z85.3 Personal history of malignant neoplasm of breast (principal)
CPT/HCPCS: 99213

== ENCOUNTER → 2023-06-21 12:37 | Outpatient (BNVA) | payer MEDICARE, SELFPAY | PROVIDERS: PCP Internal Medicine; Visit Provider Surgery | DX: Z85.3 Personal history of malignant neoplasm of breast (principal); Z92.3 Personal history of irradiation | CPT/HCPCS: 99212 ==

== ENCOUNTER 2023-07-13 15:23 | Outpatient (AMB) | payer MEDICARE, SELFPAY ==
[2023-07-13 15:34] VITALS: BP 110/70; BMI 27.8
--- NOTE | 2023-07-13 15:34 | MHC.PC.OV ---
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 Required: No Accompanied by: Spouse Allergies No Known Allergies [No Known Allergies*] Allergy (Verified 07/13/23 15:45) Medication List - Last Reconciled 07/13/23 by Joycelyn Huerta MD ascorbic acid (vitamin C) 500 mg PO DAILY atorvastatin 40 mg PO DAILY blood sugar diagnostic As directed blood sugar diagnostic (FreeStyle Lite Strips) 1 strip miscellaneous TID clotrimazole-betamethasone 1-0.05 % 1 appl topical BID 30 days cyanocobalamin (vitamin B-12) (Vitamin B-12) 500 mcg PO DAILY empagliflozin (Jardiance) 10 mg PO QAM ferrous sulfate 325 mg PO BID 90 days hydrocortisone 1% (Anti-Itch (hydrocortisone)) 1 appl topical TID PRN 30 days lancets As directed lisinopril 10 mg PO DAILY 90 days lorazepam (Ativan) 0.5 mg PO BID PRN 30 days metformin 1,000 mg PO BID 90 days omeprazole 20 mg PO DAILY ondansetron 4 mg PO Q6-8H PRN terbinafine HCl 250 mg PO DAILY 90 days Tobacco use date assessed: 07/13/23 Fall risk assessment: No Falls in past year Last assessed Fall Risk: 07/13/23 Dental Screening Dental Screen Date: 07/13/23 Did you have a dental visit in the last 12 months?: No Did you have a dental problem in the last 6 months where you did not have access to dental care?: No Was dental information given to patient?: Patient has dentist HPI HPI Comments History of Present Illness Details This is a 63-year-old female with diabetes mellitus type 2, hypertension, dyslipidemia, GERD and iron-deficiency anemia that comes today accompanied by for follow-up on her conditions. A1c elevated and I will increase Jardiance from 10 mg to 25 mg. Blood pressure stable. GERD stable with PPIs. Last LDL was within goal. Hemoglobin stable with ferrous sulfate and denies any active bleeding. Hemoglobin as well as breast cancer is follow by Hematology-Oncology. [facility] Medical History History of breast cancer Physical exam Breast cancer, left Abnormal mammogram of left breast Dyslipidemia Allergic rhinitis Gastritis Hyperlipidemia Anemia Type 2 diabetes mellitus Hypertension Surgical History History of lumpectomy of left breast Hx of bilateral cataract extraction History of esophagogastroduodenoscopy (EGD) H/O colonoscopy History of surgery History of tubal ligation Family History Father Diabetes Hypertension Mother Diabetes Hypertension Chronic mental illness Brother In good health Brother In good health Sister In good health Son In good health Son In good health Son In good health Social History Household Members: Spouse Housing: House Are you a primary career technical counselor to a significant other at home: Yes (mother) Do you presently have visiting nurse or other home services: No Alcohol intake: never Patient Tobacco Use Status: Never used Tobacco e-Cigarette/Vaping Use: Never Used Second Hand Smoke Exposure: No service: No Current occupational status: unemployed Cognitive needs: No Hearing needs: No Vision needs: No Questionnaire PHQ-9 Over the last 2 weeks, how often have you been bothered by any of the following problems? 1. Little interest or pleasure in doing things: not at all 2. Feeling down, depressed, or hopeless: not at all 3. Trouble falling or staying asleep, or sleeping too much: not at all 4. Feeling tired or having little energy: not at all 5. Poor appetite or overeating: not at all 6. Feeling bad about yourself - or that you are a failure or have let yourself or your family down: not at all 7. Trouble concentrating on things, such as reading the newspaper or watching television: not at all 8. Moving or speaking so slowly that other people could have noticed. Or the opposite - being so fidgety or restless that you have been moving around a lot more than usual: not at all 9. Thoughts that you would be better off or of hurting yourself in some way: not at all Total score: 0 Depression Screening Interpretation: Negative Depression Screening Done: Yes 20582 - PHQ-9 Billing: Yes Source: Developed by Drs. oNe Bonner, Bertrand Valdovinos and colleagues, with an educational adam from [employer]. Thrive Questionnaire Date Thrive assessed: 07/13/23 I am a: Patient What is your living situation today?: I have a steady place to live Within the past 12 months, did the food you bought not last and you didn't have the money to get more?: Never true Within the past 12 months, did you worry whether your food would run out before you got money to buy more?: Never true Do you have trouble paying for medicines?: No Do you have trouble getting transportation to medical appointments?: No Do you have trouble paying your heating and electricity bill?: No Do you have trouble taking care of your child, family member or friend?: No Do you have trouble with day-to-day activities such as bathing, preparing meals, shopping, managing finances, etc.?: No Are you currently unemployed and looking for a job?: No Are you interested in more education?: No Please select the resources that you would like help with: None Currently or been in a relationship where the following occur: no concerns reported THRIVE Score: 0 AUDIT C Alcohol Use Questionnaire (AUDIT-C) 1. How often do you have a drink containing alcohol?: Never Total Score: 0 ERIN-7 AMB Questionnaire ERIN-7 Date ERIN - 7 assessed: 07/13/23 Feeling nervous, anxious, or on edge: 0 = Not at all Not being able to stop or control worryin = Not at all Worrying too much about different things: 0 = Not at all Trouble relaxin = Not at all Being so restless that it is hard to sit still: 0 = Not at all Becoming easily annoyed or irritable: 0 = Not at all Feeling afraid as if something awful might happen: 0 = Not at all Total ERIN-7 score (0-4 normal; 5-9 mild; 10-14 moderate; 15-21 severe): 0 Source: Developed by Drs. Noe Bonner, Bertrand Valdovinos and colleagues, with an educational adam from [employer]. REIN-7 Assessment Billing ERIN-7 Assessment Tool: ERIN-7 Assessment 72326 Review of Systems Const All systems reviewed & are unremarkable except as noted in HPI and below Eyes Reports no additional complaints, Denies change in vision and Denies other visual disturbances Card Denies chest pain at rest, Denies chest pain with activity, Denies edema, Denies irregular heart rhythm, Denies claudication, Denies dyspnea, Denies dyspnea on exertion, Denies orthopnea, Denies paroxysmal nocturnal dyspnea and Denies slow heart rate Resp Denies cough, Denies dyspnea and Denies dyspnea on exertion GI Denies abdominal pain, Denies change in bowel habits, Denies excessive flatus, Denies nausea and Denies vomiting Denies urinary incontinence, Denies urinary hesitancy and Denies urinary urgency Musc Denies abnormal gait, Denies atrophy, Denies deformity and Denies limited range of motion Skin/Breast Denies bleeding lesions, Denies changing lesions and Denies rash Neuro Denies abnormal gait, Denies behavioral changes and Denies lack of coordination Psych Denies behavioral changes Physical exam (Primary Care) Vital Signs: Last Vital Signs BP 110/70 07/13/23 15:34 BMI result Body Mass Index 27.8 Tobacco/Smoking Status: Tobacco use Status Tobacco use date assessed 07/13/23 07/13/23 15:37 Patient Tobacco Use Status Never used Tobacco 07/13/23 15:37 e-Cigarette/Vaping Use Never Used 07/13/23 15:37 PHQ-9: PHQ-9 Score PHQ-9: Total score 0 07/13/23 16:02 Depression Screening Interpretation: Negative Thrive Assessment: Date of Thrive Assessment Date Thrive assessed 07/13/23 07/13/23 15:37 Currently or been in a relationship where the following occur: no concerns reported Eyes General: appearance normal, both eyes and all related structures Eyelids: Yes eyelids normal Conjunctivae: conjunctivae normal Neck Neck: Yes normal visual inspection and Yes supple Resp Effort & Inspection: normal respiratory effort Auscultation: clear to auscultation bilaterally Cardio Jugular venous distension: no JVD Rate: regular rate Rhythm: regular rhythm Heart sounds: S1 normal heart sound present and S2 normal heart sound present Extrem General: Yes full ROM Results AMB Hemoglobin A1c AMB Hemoglobin A1c 8.0 % Last Edit by JACOB Juarez on 07/13/23 15:54 Results Reviewed Results Reviewed: Laboratory Last Values Hgb A1c (Clinic) 8.0 % (4.0-6.0) H 07/13/23 15:53 Assessment and Plan Assessment & Plan (1) Diabetes mellitus: Code(s): E11.9 - Type 2 diabetes mellitus without complications Qualifiers: Diabetes mellitus type: type 2 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 Increase Jardiance. A1c goal is equal or less than 7%. (2) GERD (gastroesophageal reflux disease): Code(s): K21.9 - Gastro-esophageal reflux disease without esophagitis Plan: Continue PPIs. (3) Hypertension: Code(s): I10 - Essential (primary) hypertension Qualifiers: Hypertension type: primary hypertension Qualified Code(s): I10 - Essential (primary) hypertension Plan: Continue lisinopril. Blood pressure goal is equal or less than 130/80. (4) Dyslipidemia: Code(s): E78.5 - Hyperlipidemia, unspecified Plan: Continue statins. LDL goal is less than 70. (5) Iron deficiency anemia: Code(s): D50.9 - Iron deficiency anemia, unspecified Qualifiers: Iron deficiency anemia type: unspecified iron deficiency Qualified Code(s): D50.9 - Iron deficiency anemia, unspecified Plan: Continue ferrous sulfate. Follow-up with Hematology-Oncology. Orders: Orders AMB Hemoglobin A1c 07/13/23 E11.9 - Type 2 diabetes mellitus without complications Microalbumin, Random (w Creat) 07/13/23 E11.9 - Type 2 diabetes mellitus without complications Complete Blood Count Auto Diff 07/13/23 D64.9 - Anemia, unspecified IRON PROFILE 07/13/23 D64.9 - Anemia, unspecified SARS-CoV2/FLU/RSV 07/13/23 R09.89 - Other specified symptoms and signs involving the circulatory and respiratory systems Lipid Panel 07/13/23 E78.5 - Hyperlipidemia, unspecified Vitamin D 25-OH Total 07/13/23 E55.9 - Vitamin D deficiency, unspecified Comprehensive [place]. Panel Fast 07/13/23 E11.9 - Type 2 diabetes mellitus without complications Medications: New empagliflozin (Jardiance) 25 mg PO DAILY 90 days 90 tabs 0RF guaifenesin ER (Mucinex) 600 mg PO BID 5 days 10 tabs 0RF Refilled cyanocobalamin (vitamin B-12) (Vitamin B-12) 500 mcg PO DAILY 90 tabs 3RF Discontinued empagliflozin (Jardiance) Discontinued Reason: Patient Completed Course 10 mg PO QAM 30 tabs 6RF Coding Level of Care Code Est Pt Level 4 (97444) Diagnoses Type 2 diabetes mellitus without complication, without long-term current use of insulin E11.9 Diabetes mellitus type: type 2 Diabetes mellitus 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
== END 2023-07-13 16:02 | disposition home or self-care (01) ==
PROVIDERS: PCP Internal Medicine; Visit Provider Internal Medicine
DX: E11.9 Type 2 diabetes mellitus without complications (principal)
CPT/HCPCS: 83036; 99214

== ENCOUNTER 2023-07-13 16:08 | Outpatient (REF) | payer MEDICARE, OTHER, SELFPAY ==
[2023-07-13 17:00] LABS: Influenza A PCR NEGATIVE (Negative); Influenza B PCR NEGATIVE (Negative); Resp Syncy Virus RNA Qual PCR NEGATIVE (Negative); SARS COV2 PCR INHOUSE POSITIVE (Negative)
== END 2023-07-13 16:09 | disposition home or self-care (01) ==
LOC: HO.LAB 16:08
PROVIDERS: PCP Internal Medicine; Visit Provider Internal Medicine
DX: R09.89 Other specified symptoms and signs involving the circulatory and respiratory systems (principal); Z11.52 Encounter for screening for COVID-19; Z20.828 Contact with and (suspected) exposure to other viral communicable diseases
CPT/HCPCS: 0241U

== ENCOUNTER 2023-08-29 08:38 | Day surgery (SDC) | payer MEDICARE, OTHER, SELFPAY ==
--- NOTE | ~2023-08-29 | IR_ITS ---
Port removal History: Patient no longer requires access for chemotherapy. Referring physicians request removal. Procedure: The risks and benefits were discussed the patient and the consent was signed. The right anterior chest was prepped and draped in routine sterile fashion. The skin was anesthetized with 1% lidocaine. An incision was made over the previous scar. Utilizing blunt dissection, the port was removed from the chest with the catheter intact. The pocket was irrigated with 50 mL of normal saline. The port pocket was closed with interrupted 3-0 Vicryl sutures in the deep layer and surgical glue to close the skin. The patient tolerated the procedure well. A sterile dressing was applied. This procedure was performed by Jose Deshpande PA-C, and supervised by Dr. Edge. IR/IR cvc remove tunnel w prt/vocational school teacher Impression: Right port removal
[2023-08-29 09:33] VITALS: BMI 28.0
[2023-08-29 09:47] LABS: Glucose, Whole Blood 107 mg/dL (60-115)
--- NOTE | 2023-08-29 09:59 | PC.NURSE ---
Patient took PO Jardiance yesterday. Adolfo Deshpande made aware. No issues, may proceed with procedure. Rad nurses made aware.
[2023-08-29 11:07] VITALS: BP 115/63; PULSE 63; RESP 14; TEMP 36.4; O2SAT 100
== END 2023-08-29 11:23 | disposition home or self-care (01) ==
LOC: HO.SSS 08:39
PROVIDERS: Radiology Vascular & Interventional Radiology; PCP Internal Medicine; Visit Provider Internal Medicine
PROC: (CPT 36590; principal; 2023-08-29 10:30)
DX: Z45.2 Encounter for adjustment and management of vascular access device (principal); C50.912 Malignant neoplasm of unspecified site of left female breast; Z17.1 Estrogen receptor negative status [ER-]; Z92.3 Personal history of irradiation; Z92.21 Personal history of antineoplastic chemotherapy; D50.9 Iron deficiency anemia, unspecified; I10 Essential (primary) hypertension; E78.5 Hyperlipidemia, unspecified; E11.9 Type 2 diabetes mellitus without complications; Z79.899 Other long term (current) drug therapy; Z79.84 Long term (current) use of oral hypoglycemic drugs; Z98.890 Other specified postprocedural states
CPT/HCPCS: 36590; 82947; J2250; J2310; J3010

== ENCOUNTER → 2023-08-29 10:11 | Outpatient (BNV) | payer MEDICARE, SELFPAY | PROVIDERS: PCP Internal Medicine; Visit Provider Physician Assistant Surgical | DX: Z45.2 Encounter for adjustment and management of vascular access device (principal) | CPT/HCPCS: 36590 ==

== ENCOUNTER 2023-11-11 07:59 | Outpatient (REF) | payer MEDICARE, SELFPAY ==
[2023-11-11 08:15] LABS: MANUAL DIFF FLAG NO
[2023-11-11 08:29] LABS: Basophils Absolute Auto 0.1 X10*3/uL (0.0-0.2); Basophils Percent Auto 0.9 % (0-2); Eosinophils Absolute Auto 0.4 X10*3/uL (0.0-0.4); Eosinophils Percent Auto 7.4 % (0-4); Hemoglobin 12.3 g/dl (12.0-16.0); Imm Gran Abs Auto 0.01 X10*3/uL (0.00-0.03); Imm Gran Pct Auto 0.2 % (0.0-0.4); Lymphocytes Absolute Auto 1.7 X10*3/uL (1.2-4.9); Lymphocytes Percent Auto 30.8 % (20-40); Mean Corpuscular HGB Conc 31.5 g/dl (31.0-35.0); Mean Corpuscular Hemoglobin 28.9 pg (27.0-33.0); Mean Corpuscular Volume 91.5 fL (80.0-98.0); Mean Platelet Volume 9.4 fL (9.4-12.3); Monocytes Absolute Auto 0.4 X10*3/uL (0.1-1.2); Monocytes Percent Auto 7.2 % (2-11); Neutrophils Percent Auto 53.5 % (45-73); Platelet Count 280 X10*3/uL (160-400); Red Blood Count 4.26 X10*6/uL (4.20-5.50); Red Cell Distribution Width 13.1 % (11.0-16.0); White Blood Count 5.6 X10*3/uL (4.8-10.8)
[2023-11-11 09:25] LABS: Alanine Aminotransferase 9 U/L (0-31); Albumin Level 4.3 g/dL (3.5-5.0); Alkaline Phosphatase 87 U/L (39-117); Anion Gap 14 (12-20); Aspartate Amino Transferase 14 U/L (5-31); Bilirubin Total 0.2 mg/dL (0.0-1.0); Blood Urea Nitrogen 21 mg/dL (9-16); Calcium 10.1 mg/dL (8.4-10.2); Carbon Dioxide 26 mmol/L (22-29); Chloride 108 mmol/L (96-108); Cholesterol 150 mg/dL (<200); Estimated Glomerular Filt Rate > 60; Glucose Fasting 141 mg/dL (60-99); HDL Cholesterol 62 mg/dL (>40); Iron 41 mcg/dL (30-160); LDL Cholesterol Calculated 70 mg/dL (<100); Percent Iron Saturation 13 % (15-50); Potassium 4.7 mmol/L (3.3-5.1); Sodium 143 mmol/L (135-145); Total Iron Binding Capacity 308 mcg/dL (228-428); Total Protein 7.2 g/dL (6.5-8.0); Triglycerides 91 mg/dL (<150); Unsaturated Iron Binding 267 ug/dL
[2023-11-11 09:29] LABS: Vitamin D 25-OH Total 46.2 ng/mL (>30)
[2023-11-11 10:16] LABS: Creatinine Urine 80.76 mg/dL; Microalbum/Creatinine Ratio Ur 9.9 ug/mg cr (<30)
== END 2023-11-11 08:00 | disposition home or self-care (01) ==
LOC: HO.LAB 07:59
PROVIDERS: PCP Internal Medicine; Visit Provider Internal Medicine
DX: D64.9 Anemia, unspecified (principal); E78.5 Hyperlipidemia, unspecified; E11.9 Type 2 diabetes mellitus without complications; E55.9 Vitamin D deficiency, unspecified
CPT/HCPCS: 36415; 80053; 80061; 82043; 82306; 82570; 83540; 85025

== ENCOUNTER 2023-11-14 14:40 | Outpatient (AMB) | payer MEDICARE, SELFPAY ==
--- NOTE | 2023-11-14 14:44 | MHC.PC.OV ---
Vital Signs 11/14/23 14:57 Height 5 ft 2 in Weight 148 lb BMI 27.1 BP 110/70 Blood Pressure Location Lt brachial Position Sitting Intake Visit Reasons: 4mth f/u Intake Note: Patient here for a 4 month follow up, c/o left side abdominal/flank pain Analysis Director Required: No Accompanied by: Spouse Allergies No Known Allergies [No Known Allergies*] Allergy (Verified 11/14/23 15:26) Medication List - Last Reconciled 11/14/23 by Joycelyn Huerta MD ascorbic acid (vitamin C) 500 mg PO DAILY atorvastatin 40 mg PO DAILY [Benadryl Allergy ] blood sugar diagnostic As directed blood sugar diagnostic (FreeStyle Lite Strips) 1 strip miscellaneous TID clotrimazole-betamethasone 1-0.05 % 1 appl topical BID 30 days cyanocobalamin (vitamin B-12) (Vitamin B-12) 500 mcg PO DAILY empagliflozin (Jardiance) 25 mg PO DAILY 90 days ferrous sulfate 325 mg PO BID 90 days hydrocortisone 1% (Anti-Itch (hydrocortisone)) 1 appl topical TID PRN 30 days lancets As directed lisinopril 10 mg PO DAILY 90 days lorazepam (Ativan) 0.5 mg PO BID PRN 30 days metformin 1,000 mg PO BID 90 days omeprazole 20 mg PO DAILY Tobacco use date assessed: 07/13/23 Fall risk assessment: No Falls in past year Last assessed Fall Risk: 11/14/23 Dental Screening Dental Screen Date: 07/13/23 HPI HPI Comments History of Present Illness Details This is a 63-year-old female with diabetes mellitus type 2, hypertension, dyslipidemia, GERD and history of left breast cancer in remission that comes today accompanied by for follow-up on her conditions. A1c within goal. Blood pressure stable. LDL within goal. GERD stable with PPIs. Breast cancer has been follow by Hematology Oncology and she completed treatment and has been in remission since. No chest pain or shortness on breath. Complains of occasional left rib pain when laying down in the left side. [facility] Medical History (Updated 11/14/23 @ 21:11 by Joycelyn Huerta MD) History of breast cancer Physical exam Breast cancer, left Abnormal mammogram of left breast Dyslipidemia Allergic rhinitis Gastritis Hyperlipidemia Anemia Type 2 diabetes mellitus Hypertension Surgical History History of lumpectomy of left breast Hx of bilateral cataract extraction History of esophagogastroduodenoscopy (EGD) H/O colonoscopy History of surgery History of tubal ligation Family History Father Diabetes Hypertension Mother Diabetes Hypertension Chronic mental illness Brother In good health Brother In good health Sister In good health Son In good health Son In good health Son In good health Social History Household Members: Spouse Housing: House Are you a primary nurse care manager to a significant other at home: Yes (mother) Do you presently have visiting nurse or other home services: No Alcohol intake: never Patient Tobacco Use Status: Never used Tobacco e-Cigarette/Vaping Use: Never Used Second Hand Smoke Exposure: No service: No Current occupational status: unemployed Cognitive needs: No Hearing needs: No Vision needs: No Questionnaire Thrive Questionnaire Date Thrive assessed: 07/13/23 ERIN-7 AMB Questionnaire ERIN-7 Date ERIN - 7 assessed: 07/13/23 Source: Developed by Drs. Noe Bonner, Fifi Figueroa, Bertrand Cook and colleagues, with an educational adam from [employer]. Review of Systems Const All systems reviewed & are unremarkable except as noted in HPI and below Card Denies chest pain at rest, Denies chest pain with activity, Denies edema, Denies irregular heart rhythm, Denies claudication, Denies dyspnea, Denies dyspnea on exertion, Denies orthopnea, Denies paroxysmal nocturnal dyspnea and Denies slow heart rate Resp Denies cough, Denies dyspnea and Denies dyspnea on exertion Neuro Denies behavioral changes and Denies lack of coordination Psych Denies behavioral changes Physical exam (Primary Care) Vital Signs: Last Vital Signs BP 110/70 11/14/23 14:57 BMI result Body Mass Index 27.1 Tobacco/Smoking Status: Tobacco use Status Tobacco use date assessed 07/13/23 11/14/23 14:45 Patient Tobacco Use Status Never used Tobacco 11/14/23 14:45 e-Cigarette/Vaping Use Never Used 11/14/23 14:45 Thrive Assessment: Date of Thrive Assessment Date Thrive assessed 07/13/23 11/14/23 14:45 Resp Effort & Inspection: normal respiratory effort Auscultation: clear to auscultation bilaterally Cardio Jugular venous distension: no JVD Rate: regular rate Rhythm: regular rhythm Heart sounds: S1 normal heart sound present and S2 normal heart sound present Extrem General: Yes full ROM Results AMB Hemoglobin A1c AMB Hemoglobin A1c 6.8 % Last Edit by JACOB Juarez on 11/14/23 15:08 Results Reviewed Results Reviewed: Laboratory Last Values Hgb A1c (Clinic) 6.8 % (4.0-6.0) H 11/14/23 14:45 Assessment and Plan Assessment & Plan (1) Diabetes mellitus: Code(s): E11.9 - Type 2 diabetes mellitus without complications Qualifiers: Diabetes mellitus type: type 2 Diabetes mellitus long goods drier insulin use: without long goods drier use Diabetes mellitus complication status: without complication Qualified Code(s): E11.9 - Type 2 diabetes mellitus without complications Plan: Continue metformin and Jardiance. A1c goal is equal or less than 7%. (2) Breast cancer, left: Code(s): C50.912 - Malignant neoplasm of unspecified site of left female breast Qualifiers: Breast location: unspecified site of breast Estrogen receptor status: unspecified Patient sex: female Qualified Code(s): C50.912 - Malignant neoplasm of unspecified site of left female breast Plan: Follow-up with Hematology-Oncology. (3) Hypertension: Code(s): I10 - Essential (primary) hypertension Qualifiers: Hypertension type: primary hypertension Qualified Code(s): I10 - Essential (primary) hypertension Plan: Continue lisinopril. Blood pressure goal is equal or less than 130/80. (4) Dyslipidemia: Code(s): E78.5 - Hyperlipidemia, unspecified Plan: Continue statins. Repeat lipid panel. LDL goal is less than 70. (5) GERD (gastroesophageal reflux disease): Code(s): K21.9 - Gastro-esophageal reflux disease without esophagitis Qualifiers: Esophagitis presence: esophagitis presence not specified Qualified Code(s): K21.9 - Gastro-esophageal reflux disease without esophagitis Plan: Continue PPIs. Orders: Orders AMB Hemoglobin A1c Today E11.9 - Type 2 diabetes mellitus without complications XR ribs LT 2V Today R07.81 - Pleurodynia Lipid Panel 4 Months E78.5 - Hyperlipidemia, unspecified Complete Blood Count Auto Diff 4 Months D64.9 - Anemia, unspecified IRON PROFILE 4 Months D64.9 - Anemia, unspecified Vitamin B12 and Folate 4 Months E53.8 - Deficiency of other specified B group vitamins Microalbumin, Random (w Creat) 4 Months E11.9 - Type 2 diabetes mellitus without complications Vitamin D 25-OH Total 4 Months E55.9 - Vitamin D deficiency, unspecified Comprehensive [place]. Panel Fast 4 Months E11.9 - Type 2 diabetes mellitus without complications Coding Level of Care Code Est Pt Level 4 (49945) Complex EM visit Add On G2211 Diagnoses Type 2 diabetes mellitus without complication, without long-term current use of insulin E11.9 Diabetes mellitus type: type 2 Diabetes mellitus snf insulin use: without snf use Diabetes mellitus complication status: without complication Malignant neoplasm of left female breast, unspecified estrogen receptor status, unspecified site of breast C50.912 Breast location: unspecified site of breast Estrogen receptor status: unspecified Patient sex: female Primary hypertension I10 Hypertension type: primary hypertension Dyslipidemia E78.5 Gastroesophageal reflux disease, unspecified whether esophagitis present K21.9 Esophagitis presence: esophagitis presence not specified Time Spent (min) 22
[2023-11-14 14:57] VITALS: BP 110/70; BMI 27.1
== END 2023-11-14 15:44 | disposition home or self-care (01) ==
PROVIDERS: PCP Internal Medicine; Visit Provider Internal Medicine
DX: E11.9 Type 2 diabetes mellitus without complications (principal); C50.912 Malignant neoplasm of unspecified site of left female breast; I10 Essential (primary) hypertension; E78.5 Hyperlipidemia, unspecified; K21.9 Gastro-esophageal reflux disease without esophagitis
CPT/HCPCS: 83036; 99214; G2211

== ENCOUNTER 2023-12-12 14:05 | Outpatient (REF) | payer MEDICARE, SELFPAY ==
--- NOTE | ~2023-12-12 | MM_ITS ---
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 Second year follow-up protocol. Due for yearly. COMPARISON: Mammography: Prior mammography dating back to 07/15/2017. TECHNIQUE: Digital breast tomosynthesis is performed in both the craniocaudal and mediolateral oblique views along with computer-aided detection (CAD). Synthesized 2D images are generated from the tomosynthesis. In addition to standard views, 2-D spot magnification images of the left breast in the CC x2 and ML x2 views were obtained. An added full-field 3-D left CC view was also obtained. FINDINGS: There are scattered areas of fibroglandular density (ACR BI-RADS breast composition Category b). Right chest port has been removed. Left breast post therapy changes are present with benign scarring posterior outer breast, smooth left breast skin thickening, and mild coarsening of the stromal markings. The right breast has parenchymal pattern similar to prior studies. Stable focal asymmetry in the superior outer right breast, posterior one third, unchanged from 2020. No developing density or new architectural abnormality. No significant changes. MM/MM tomosynthesis diagnostic BI IMPRESSION: -No mammographic evidence of malignancy. -Similar post therapy changes left breast. -Recommend 1 year follow-up diagnostic left mammography to complete three-year postop protocol. ASSESSMENT: BI-RADS BI-RADS 2 - Benign Findings RECOMMENDATION: 1 year F/U Results were provided to the patient at time of visit by the technologist. This patient's information was entered into a reminder system with a target due date for their next mammogram.
== END 2023-12-12 14:06 | disposition home or self-care (01) ==
LOC: HO.MAMMO 14:05
PROVIDERS: PCP Internal Medicine; Visit Provider Internal Medicine
DX: Z85.3 Personal history of malignant neoplasm of breast (principal)
CPT/HCPCS: 77062; 77066

== ENCOUNTER → 2023-12-12 14:40 | Outpatient (BNV) | payer MEDICARE, SELFPAY | PROVIDERS: PCP Internal Medicine; Visit Provider Radiology Diagnostic Radiology | DX: Z85.3 Personal history of malignant neoplasm of breast (principal) | CPT/HCPCS: 77066; G0279 ==

== ENCOUNTER 2024-01-04 12:40 | Outpatient (AMB) | payer MEDICARE, SELFPAY ==
--- NOTE | 2024-01-04 12:50 | A.OFFVIS_ITS ---
Vital Signs 01/04/24 12:51 Height 5 ft 2 in Weight 147 lb 6 oz BMI 27.0 BP 130/63 Blood Pressure Location Lt brachial Position Sitting Pulse 93 Intake Visit Reasons: 6m br exam Intake Note: This patient presents for six month breast examination assessment. Pt c/o; no changes or concerns at the time of visit MM Diag-12/12/2023 Emergency Management Program Specialist Required: No Accompanied by: Self / Same As Patient Allergies No Known Allergies [No Known Allergies*] Allergy (Verified 01/04/24 12:51) HPI HPI 6m br exam: Details: She had lumpectomy and sentinel biopsy for left breast invasive cancer last Oct, 2021. She had a T1 N0 lesion at that time, ER OK negative, HER2 positive. She had completed her chemotherapy as well as radiation to the left breast She feels well overall and denies any significant complaints. She denies any palpable mass or nipple or breast changes. [facility] Medical History History of breast cancer Physical exam Breast cancer, left Abnormal mammogram of left breast Dyslipidemia Allergic rhinitis Gastritis Hyperlipidemia Anemia Type 2 diabetes mellitus Hypertension Surgical History History of lumpectomy of left breast Hx of bilateral cataract extraction History of esophagogastroduodenoscopy (EGD) H/O colonoscopy History of surgery History of tubal ligation Family History Father Diabetes Hypertension Mother Diabetes Hypertension Chronic mental illness Brother In good health Brother In good health Sister In good health Son In good health Son In good health Son In good health Social History Household Members: Spouse Housing: House Are you a primary child care counselor to a significant other at home: Yes (mother) Do you presently have visiting nurse or other home services: No Alcohol intake: never Patient Tobacco Use Status: Never used Tobacco e-Cigarette/Vaping Use: Never Used Second Hand Smoke Exposure: No service: No Current occupational status: unemployed Cognitive needs: No Hearing needs: No Vision needs: No Review of Systems Const Denies chills and Denies fever(s) Card Denies chest pain, Denies dyspnea and Denies dyspnea on exertion Resp Denies cough, Denies dyspnea and Denies dyspnea on exertion GI Denies hematochezia and Denies change in bowel habits Denies hematuria Musc Denies back pain and Denies limited range of motion Neuro Denies focal weakness and Denies convulsions Psych Denies depression and Denies mood swings Physical Exam Vital Signs: Last Vital Signs Pulse 93 01/04/24 12:51 BP 130/63 01/04/24 12:51 BMI result Body Mass Index 27.0 Const General: comfortable and no acute distress Orientation/consciousness: patient oriented x3 Neck Neck: Yes no lymphadenopathy Chest Other: No palpable breast masses, no nipple or skin changes, no axillary lymphadenopathy Resp Auscultation: clear to auscultation bilaterally Cardio Rhythm: regular rhythm GI Palpation (GI): Soft to palpation, nontender and no guarding Neuro General: patient oriented x3 Assessment & Plan Assessment & Plan (1) History of breast cancer: Code(s): Z85.3 - Personal history of malignant neoplasm of breast Category: Medical Plan: She is doing very well overall. Current exam does not reveal any palpable mass. Her last mammogram done last month was unremarkable. She is to continue with her regular screening mammograms yearly. I will see her again therefore next year. She can come back to the office ear lier if there is any concern. She is also to continue to follow up with Dr. Mendoza of Oncology. Coding Level of Care Code Est Pt Level 3 (15143) Diagnoses History of breast cancer Z85.3
[2024-01-04 12:51] VITALS: BP 130/63; PULSE 93; BMI 27.0
== END 2024-01-04 13:10 | disposition home or self-care (01) ==
PROVIDERS: PCP Internal Medicine; Visit Provider Surgery
DX: Z85.3 Personal history of malignant neoplasm of breast (principal)
CPT/HCPCS: 99213

== ENCOUNTER → 2024-01-04 12:40 | Outpatient (BNVA) | payer MEDICARE, SELFPAY | PROVIDERS: PCP Internal Medicine; Visit Provider Surgery | DX: Z85.3 Personal history of malignant neoplasm of breast (principal) | CPT/HCPCS: 99212 ==

== ENCOUNTER 2024-04-07 12:25 | Emergency (ER) | payer MEDICARE, SELFPAY ==
[2024-04-07 12:39] VITALS: BP 136/83; PULSE 79; RESP 18; TEMP 36.3; O2SAT 98; BMI 27.2
--- NOTE | 2024-04-07 12:39 | ED.GENADULT ---
HPI - General Adult General Chief complaint: Eye Problems Stated complaint: Hives, Eye irritation Time Seen by Provider: 04/07/24 12:51 Source: patient and RN notes reviewed Mode of arrival: ambulatory Limitations: no limitations History of Present Illness ED Provider: Kathy Chanel PA-C HPI narrative: This is a 64-year-old female who presents emergency department with complaints of bilateral eye itchiness x1 week. Bilateral eyes with erythema, with excoriations noted, conjunctiva is noninjected. She has had no recent exposures to any lotions, soaps, detergents, or new medications. Denies history of similar symptoms in the past. Denies taking any medications at home to treat her current symptoms. She has been applying topical Vaseline to the rash with minimal relief. No fevers, chills, chest pain, shortness of breath, abdominal pain, nausea, vomiting or diarrhea. No eye pain, no vision changes, no significant drainage from bilateral eyes. No other complaints or concerns at this time. MD complaint: eye itchiness, redness, rash Onset (ago): week(s) Radiation: non-radiation Quality: aching Exacerbating factors: none Associated symptoms: denies other symptoms Treatments prior to arrival: none Related Data Home Medications ?Medication ?Instructions ?Recorded ?Confirmed blood sugar diagnostic #10 ea 03/31/20 03/12/24 lancets 28 gauge #100 ea 03/31/20 03/12/24 ascorbic acid (vitamin C) 500 mg 500 mg PO DAILY 07/07/20 03/12/24 tablet Benadryl Allergy 25 mg PO DAILY 08/29/23 03/12/24 Previous Rx's ?Medication ?Instructions ?Recorded lorazepam 0.5 mg tablet (Ativan) 0.5 mg PO BID PRN anxiety 30 days 11/09/21 #15 tabs omeprazole 20 mg capsule,delayed 20 mg PO DAILY #30 caps 01/24/22 release blood sugar diagnostic (FreeStyle 1 strip miscellaneous TID for 09/02/22 Lite Strips) diabetes mellitus #100 ea hydrocortisone 1 % topical cream 1 appl topical TID PRN skin 09/06/22 (Anti-Itch (hydrocortisone)) irritation 30 days #28.4 grams cyanocobalamin (vitamin B-12) 500 500 mcg PO DAILY #90 tabs 07/13/23 mcg tablet (Vitamin B-12) ferrous sulfate 325 mg (65 mg 325 mg PO BID 90 days #180 tabs 10/20/23 iron) tablet empagliflozin 25 mg tablet 25 mg PO DAILY 90 days #90 tabs 12/20/23 (Jardiance) lisinopril 10 mg tablet 10 mg PO DAILY 90 days #90 tabs 01/03/24 clotrimazole-betamethasone 1 1 appl topical BID 30 days #15 02/25/24 %-0.05 % topical cream grams atorvastatin 40 mg tablet 40 mg PO DAILY #90 tabs 03/13/24 metformin 1,000 mg tablet 1,000 mg PO BID 90 days #180 tabs 03/13/24 prednisone 20 mg tablet 40 mg (2 x 20 mg) PO DAILY 5 days 04/07/24 #10 tabs Allergies Allergy/AdvReac Type Severity Reaction Status Date / Time No Known Allergies Allergy Verified 04/07/24 12:41 [No Known Allergies*] Review of Systems Review of Systems: Yes all other systems are reviewed and are negative Constitutional: Constitutional: Reports as per [facility] Past Medical History Medical History History of breast cancer Physical exam Breast cancer, left Abnormal mammogram of left breast Dyslipidemia Allergic rhinitis Gastritis Hyperlipidemia Anemia Type 2 diabetes mellitus Hypertension Surgical History History of lumpectomy of left breast Hx of bilateral cataract extraction History of esophagogastroduodenoscopy (EGD) H/O colonoscopy History of surgery History of tubal ligation Family History Family History Father Diabetes Hypertension Mother Diabetes Hypertension Chronic mental illness Brother In good health Brother In good health Sister In good health Son In good health Son In good health Son In good health Social History Social History Household Members: Spouse Housing: House Are you a primary career development counselor to a significant other at home: Yes (mother) Do you presently have visiting nurse or other home services: No Alcohol intake: never Patient Tobacco Use Status: Never used Tobacco e-Cigarette/Vaping Use: Never Used Second Hand Smoke Exposure: No Advance Directives: No Advance Directives Information Provided: Yes Do you have a plan to hurt others: No Plan service: No Current occupational status: unemployed Cognitive needs: No Hearing needs: No Vision needs: No Physical Exam ED Vital Signs: Vital Signs - 24 hr 04/07/24 12:39 04/07/24 12:59 Temperature 97.4 F 97.4 F Pulse Rate 79 79 Respiratory Rate 18 18 Blood Pressure 136/83 136/83 Pulse Oximetry 98 98 BMI result Body Mass Index 27.2 Const General: cooperative, comfortable and no acute distress Orientation/consciousness: patient oriented x3 Limitations: no limitations HENMT Other: periorbital erythema, no edema, conjunctiva is noninjected, no drainage noted. Head: Yes normal to inspection, Yes normocephalic and Yes atraumatic Ears: hearing grossly normal bilaterally General nose exam: Normal external nose present Face and sinus: Yes normal facial exam Mouth: Normal oral and palatal mucosa present, oropharynx normal and moist mucous membranes Throat: Yes posterior oropharynx normal Eyes General: appearance normal, both eyes and all related structures Eyelids: Yes eyelids normal Conjunctivae: conjunctivae normal Sclerae: sclerae normal Pupils: Equal, round and reactive pupils present EOM: EOMs intact bilaterally Neck Neck: Yes normal visual inspection, Yes full ROM and Yes no lymphadenopathy Lymphatic: no lymphadenopathy noted Chest Chest palpation & inspection: normal inspection of the chest Resp Effort & Inspection: normal respiratory effort and able to speak in complete sentences Auscultation: clear to auscultation bilaterally, no crackles, no rales, no rhonchi and no wheezes Cardio Rate: regular rate Rhythm: regular rhythm Heart sounds: S1 normal heart sound present and S2 normal heart sound present GI Inspection: Yes normal to inspection Skin General skin exam: no rashes or lesions noted Trauma: no lacerations or abrasions Wounds: no wounds Neuro General: patient oriented x3 and moves all extremities Cranial nerves: Yes Equal, round and reactive pupils present Extrem General: Yes normal to inspection Right upper extremity: normal to inspection Left upper extremity: normal to inspection Right lower extremity: normal to inspection Left lower extremity: normal to inspection Course Course Course Narrative: This is an RME: Additional HPI, ROS, PE not included below will be deferred to primary provider. RME assessment and note performed by: Kathy Chanel PA-C This is a [id number]-female, with a PMHx of GERD, HTN, HLD, who presents to the ER with complaints of itchy rash surrounding eyes x 1 week. No drainage from the eyes. Plan: Medical Decision Making Medical Decision Making [facility] Narrative: This is a 64-year-old female who presents emergency department with complaints of bilateral eye itchiness x1 week. On arrival vital signs within normal limits. She is speaking in full sentences. She is under no acute distress. Will treat as allergic. Discussed strict return precautions. She does have a history of diabetes therefore educated on close monitoring of blood glucose level. She understands and agrees with plan. Patient discharge. Differential Diagnosis Differential Diagnoses: The differential diagnosis associated with the presentation includes Contact dermatitis, allergic, conjunctivitis, periorbital cellulitis, orbital cellulitis-unlikely Discharge Plan Discharge Clinical Impression: Rash Patient Disposition: Home, Self-Care Instructions: Contact Dermatitis (ED), Acute Rash (ED) Additional Instructions: Your seen in the emergency department due to a rash. It is unclear what is causing you to have this rash therefore it is very important for you to follow-up with your primary care, call tomorrow to make an appointment. I am treating your rash with a course of prednisone. Please be advised that this can cause elevation in your blood sugar, please monitor your blood sugar closely. Watch for any new or worsening symptoms including but not limited to changes in vision, eye pain, drainage, worsening swelling. Prescriptions: New prednisone 20 mg tablet 40 mg PO DAILY 5 Days Qty: 10 0RF No Action omeprazole 20 mg capsule,delayed release(DR/EC) 20 mg PO DAILY Qty: 30 6RF FreeStyle Lite Strips Strip 1 strip miscellaneous TID Qty: 100 3RF ferrous sulfate 325 mg (65 mg iron) tablet 325 mg PO BID 90 Days Qty: 180 0RF Jardiance 25 mg tablet 25 mg PO DAILY 90 Days Qty: 90 0RF lisinopril 10 mg tablet 10 mg PO DAILY 90 Days Qty: 90 0RF clotrimazole-betamethasone 1-0.05 % cream 1 appl topical BID 30 Days Qty: 15 0RF metformin 1,000 mg tablet 1,000 mg PO BID 90 Days Qty: 180 0RF atorvastatin 40 mg tablet 40 mg PO DAILY Qty: 90 0RF ascorbic acid (vitamin C) 500 mg Tablet 500 mg PO DAILY Benadryl Allergy 25 mg PO DAILY (DME) FreeStyle Lite Strips Strip See Rx Instructions .ROUTE .MEDSUPPLY Qty: 10 Rx Instructions: As directed (DME) lancets 28 gauge misc See Rx Instructions topical TID Qty: 100 Rx Instructions: As directed lorazepam [Ativan] 0.5 mg tablet 0.5 mg PO BID PRN (Reason: anxiety) 30 Days Qty: 15 0RF hydrocortisone [Anti-Itch (HC)] 1 % cream 1 appl topical TID PRN (Reason: skin irritation) 30 Days Qty: 28.4 0RF cyanocobalamin (vitamin B-12) [Vitamin B-12] 500 mcg tablet 500 mcg PO DAILY Qty: 90 3RF Interventions: ED Discharge Assessment Last Done: 04/07/24 12:59 Discharge Date/Time: 04/07/24 12:59 Print Language: Bangladeshi
[2024-04-07 12:59] VITALS: BP 136/83; PULSE 79; RESP 18; TEMP 36.3; O2SAT 98
== END 2024-04-07 12:59 | disposition home or self-care (01) ==
PROVIDERS: Emergency Provider Emergency Medicine Emergency Medical Services; PCP Internal Medicine
DX: H57.13 Ocular pain, bilateral (principal); R21 Rash and other nonspecific skin eruption; E11.9 Type 2 diabetes mellitus without complications; I10 Essential (primary) hypertension; Z79.899 Other long term (current) drug therapy
CPT/HCPCS: 99282

== ENCOUNTER 2024-04-11 14:03 | Outpatient (AMB) | payer MEDICARE, SELFPAY ==
--- NOTE | 2024-04-11 14:29 | MHC.PC.OV ---
Vital Signs 04/11/24 14:35 Height 5 ft 1 in Weight 148 lb BMI 28.0 BP 126/80 Blood Pressure Location Lt brachial Position Sitting Intake Visit Reasons: Annual Exam Intake Note: Patient here for an Annual Physical Exam House Detective Required: No Accompanied by: Self / Same As Patient Allergies No Known Allergies [No Known Allergies*] Allergy (Verified 04/11/24 14:46) Medication List - Last Reconciled 04/11/24 by Joycelyn Huerta MD ascorbic acid (vitamin C) 500 mg PO DAILY atorvastatin 40 mg PO DAILY [Benadryl Allergy 25 mg PO DAILY] blood sugar diagnostic As directed blood sugar diagnostic (FreeStyle Lite Strips) 1 strip miscellaneous TID clotrimazole-betamethasone 1-0.05 % 1 appl topical BID 30 days cyanocobalamin (vitamin B-12) (Vitamin B-12) 500 mcg PO DAILY empagliflozin (Jardiance) 25 mg PO DAILY 90 days ferrous sulfate 325 mg PO BID 90 days hydrocortisone 1% (Anti-Itch (hydrocortisone)) 1 appl topical TID PRN 30 days lancets As directed lisinopril 10 mg PO DAILY 90 days lorazepam (Ativan) 0.5 mg PO BID PRN 30 days metformin 1,000 mg PO BID 90 days omeprazole 20 mg PO DAILY prednisone 40 mg (2 x 20 mg) PO DAILY 5 days Tobacco use date assessed: 07/13/23 Fall risk assessment: No Falls in past year Last assessed Fall Risk: 04/11/24 Dental Screening Dental Screen Date: 04/11/24 Did you have a dental visit in the last 12 months?: No Did you have a dental problem in the last 6 months where you did not have access to dental care?: No Was dental information given to patient?: Patient has dentist HPI HPI Comments History of Present Illness Details This is a 64-year-old female with diabetes mellitus type 2 that comes for her physical exam. A1c has worsened and dietary changes were advised. Diabetic eye exam was done 2023. Mammogram done 2023. Colonoscopy done 2019. No need for Pap smear due to age. No chest pain or shortness on breath. [facility] Medical History History of breast cancer Physical exam Breast cancer, left Abnormal mammogram of left breast Dyslipidemia Allergic rhinitis Gastritis Hyperlipidemia Anemia Type 2 diabetes mellitus Hypertension Surgical History History of lumpectomy of left breast Hx of bilateral cataract extraction History of esophagogastroduodenoscopy (EGD) H/O colonoscopy History of surgery History of tubal ligation Family History (Updated 04/11/24 @ 14:59 by Joycelyn Huerta MD) Father Diabetes Hypertension Mother Diabetes Hypertension Chronic mental illness Brother In good health Brother In good health Sister In good health Son In good health Son In good health Son In good health Social History Household Members: Spouse Housing: House Are you a primary care process manager to a significant other at home: Yes (mother) Do you presently have visiting nurse or other home services: No Alcohol intake: never Patient Tobacco Use Status: Never used Tobacco e-Cigarette/Vaping Use: Never Used Second Hand Smoke Exposure: No service: No Current occupational status: unemployed Cognitive needs: No Hearing needs: No Vision needs: No Questionnaire Thrive Questionnaire Date Thrive assessed: 07/13/23 ERIN-7 AMB Questionnaire ERIN-7 Date ERIN - 7 assessed: 07/13/23 Source: Developed by Drs. Noe Bonner, Fifi Figueroa, Bertrand Cook and colleagues, with an educational adam from [employer]. Review of Systems Const All systems reviewed & are unremarkable except as noted in HPI and below Card Denies chest pain at rest, Denies chest pain with activity, Denies edema, Denies irregular heart rhythm, Denies claudication, Denies dyspnea, Denies dyspnea on exertion, Denies orthopnea, Denies paroxysmal nocturnal dyspnea and Denies slow heart rate Resp Denies cough, Denies dyspnea and Denies dyspnea on exertion Physical exam (Primary Care) Vital Signs: Last Vital Signs BP 126/80 04/11/24 14:35 BMI result Body Mass Index 28.0 Tobacco/Smoking Status: Tobacco use Status Tobacco use date assessed 07/13/23 04/11/24 14:31 Patient Tobacco Use Status Never used Tobacco 04/11/24 14:31 e-Cigarette/Vaping Use Never Used 04/11/24 14:31 Thrive Assessment: Date of Thrive Assessment Date Thrive assessed 07/13/23 04/11/24 14:31 HENWV Head: Yes normal to inspection, Yes normocephalic and Yes atraumatic Ears: external ears normal Eyes General: appearance normal, both eyes and all related structures Eyelids: Yes eyelids normal Conjunctivae: conjunctivae normal Neck Neck: Yes normal visual inspection and Yes supple Resp Effort & Inspection: normal respiratory effort Auscultation: clear to auscultation bilaterally Cardio Jugular venous distension: no JVD Rate: regular rate Rhythm: regular rhythm Heart sounds: S1 normal heart sound present and S2 normal heart sound present GI Inspection: Yes normal to inspection Palpation (GI): Soft to palpation and nontender Auscultation: normal bowel sounds Skin General skin exam: no rashes or lesions noted Neuro General: no focal motor deficits Extrem General: Yes full ROM Psych Appearance: grossly normal Office Procedures Flu Questionnaire Does the patient have a severe egg allergy?: No Does the patient have severe life threatening allergies?: No Does the patient have a fever or illness today?: No Has the patient ever had Guillain-[place] Syndrome?: No Has the patient ever had any past reaction to a flu shot?: No Results AMB Hemoglobin A1c AMB Hemoglobin A1c 7.8 % Last Edit by JACOB Juarez on 04/11/24 14:56 Immunizations Fluarix Triv [id number] (PF) 45 mcg (15 mcg x 3)/0.5 mL IM syringe Performing Provider: Joycelyn Huerta MD Performing Location: [facility] Adult Primary [facility] Administered by: JACOB Juarez on 04/11/24 15:17 Dose Route Admin Location Dispensed Lot Number Expiration Date [facility] [employer] 0.5 mL IM Left Deltoid 0.5 mL [id number] 12/02/24 [id number] [employer] VIS Given Date VIS Provided VIS Publication Date 04/11/24 Single Vaccine 21 Eligibility Eligibility Date Funding Source Not [facility] Eligible 04/11/24 Private Results Reviewed Results Reviewed: Laboratory Last Values Hgb A1c (Clinic) 7.8 % (4.0-6.0) H 04/11/24 14:25 Coding Level of Care Code Est Pt Level 3 (22444) Est Pt Prev Care >65y(23386) Diagnoses Physical exam Z00.00 Type 2 diabetes mellitus without complication, without long-term current use of insulin E11.9 Diabetes mellitus complication status: without complication Diabetes mellitus custodial insulin use: without custodial use Diabetes mellitus type: type 2 Assessment & Plan Assessment & Plan (1) Physical exam: Code(s): Z00.00 - Encounter for general adult medical examination without abnormal findings Category: Medical Plan: Repeat in a year. (2) Diabetes mellitus: Code(s): E11.9 - Type 2 diabetes mellitus without complications Category: Medical Qualifiers: Diabetes mellitus complication status: without complication Diabetes mellitus long term acute care registered nurse insulin use: without custodial use Diabetes mellitus type: type 2 Qualified Code(s): E11.9 - Type 2 diabetes mellitus without complications Plan: Continue Jardiance and metformin. A1c goal is equal or less than 7%. Orders: Orders Influenza [id number] Immunization Today Z23 - Encounter for immunization AMB Hemoglobin A1c Today E11.9 - Type 2 diabetes mellitus without complications Vitamin D 25-OH Total 4 Months E55.9 - Vitamin D deficiency, unspecified Comprehensive Depue. Panel Fast 4 Months Z00.00 - Encounter for general adult medical examination without abnormal findings Lipid Panel 4 Months E78.5 - Hyperlipidemia, unspecified Microalbumin, Random (w Creat) 4 Months R80.9 - Proteinuria, unspecified
[2024-04-11 14:35] VITALS: BP 126/80; BMI 28.0
== END 2024-04-11 15:38 | disposition home or self-care (01) ==
LOC: HO.HMCH 14:04
PROVIDERS: PCP Internal Medicine; Visit Provider Internal Medicine
DX: Z00.00 Encounter for general adult medical examination without abnormal findings (principal); E11.9 Type 2 diabetes mellitus without complications; Z23 Encounter for immunization

== ENCOUNTER → 2024-04-11 14:03 | Outpatient (BNVA) | payer MEDICARE, SELFPAY | PROVIDERS: PCP Internal Medicine; Visit Provider Internal Medicine | DX: Z00.00 Encounter for general adult medical examination without abnormal findings (principal); Z23 Encounter for immunization; E11.9 Type 2 diabetes mellitus without complications | CPT/HCPCS: 83036; 90471; 90656; 99397 ==

== ENCOUNTER 2024-04-30 09:24 | Outpatient (REF) | payer MEDICARE, SELFPAY ==
[2024-04-30 14:35] LABS: Influenza A PCR NEGATIVE (Negative); Influenza B PCR NEGATIVE (Negative); Resp Syncy Virus RNA Qual PCR NEGATIVE (Negative); SARS COV2 PCR INHOUSE NEGATIVE (Negative)
== END 2024-04-30 09:25 | disposition home or self-care (01) ==
LOC: HO.LNP 09:24
PROVIDERS: PCP Internal Medicine; Visit Provider Nurse Practitioner Family
DX: J06.9 Acute upper respiratory infection, unspecified (principal)
CPT/HCPCS: 0241U; 99212

== ENCOUNTER 2024-04-30 09:24 | Outpatient (AMB) | payer MEDICARE, SELFPAY ==
[2024-04-30 10:10] VITALS: BP 120/70; PULSE 80; TEMP 36.6; O2SAT 97; BMI 26.9
--- NOTE | 2024-04-30 10:10 | AM.OFFWIN_ITS ---
Intake Vital Signs 04/30/24 10:10 Height 5 ft 2 in Weight 147 lb BMI 26.9 BP 120/70 Blood Pressure Location Rt brachial Position Sitting Pulse 80 Pulse Source Pulse Oximeter Temp 97.9 F Temp Source Oral Pulse Oximetry (%) 97 Oxygen Delivery Method Room Air Intake Visit Reasons: EP-cough, fever, headaches Intake Note: Patient here for cough, fever, headaches and congestion that has been present for about 1 week. Patient Tobacco Use Status: Never used Tobacco Allergies No Known Allergies [No Known Allergies*] Allergy (Verified 04/30/24 10:11) Do you need a note to return to daycare/school/sports/work: Yes HPI HPI Comments History of Present Illness Details 64 y/o female patient who presents to [facility] walk in clinic with c/o URI symptoms x 4 days. Denies fevers, nausea or vomiting. [facility] Medical History History of breast cancer Physical exam Breast cancer, left Abnormal mammogram of left breast Dyslipidemia Allergic rhinitis Gastritis Hyperlipidemia Anemia Type 2 diabetes mellitus Hypertension Surgical History History of lumpectomy of left breast Hx of bilateral cataract extraction History of esophagogastroduodenoscopy (EGD) H/O colonoscopy History of surgery History of tubal ligation Family History (Updated 04/11/24 @ 14:59 by Joycelyn Huerta MD) Father Diabetes Hypertension Mother Diabetes Hypertension Chronic mental illness Brother In good health Brother In good health Sister In good health Son In good health Son In good health Son In good health Social History Household Members: Spouse Housing: House Are you a primary resident care manager to a significant other at home: Yes (mother) Do you presently have visiting nurse or other home services: No Alcohol intake: never Patient Tobacco Use Status: Never used Tobacco e-Cigarette/Vaping Use: Never Used Second Hand Smoke Exposure: No service: No Current occupational status: unemployed Cognitive needs: No Hearing needs: No Vision needs: No Review of Systems Const All systems reviewed & are unremarkable except as noted in HPI and below Physical Exam Vital Signs: Last Vital Signs Temp 97.9 F 04/30/24 10:10 Pulse 80 04/30/24 10:10 BP 120/70 04/30/24 10:10 Pulse Ox 97 04/30/24 10:10 Oxygen Delivery Method Room Air 04/30/24 10:10 BMI result Body Mass Index 26.9 Const General: cooperative and no acute distress Nutritional Appearance: overweight Orientation/consciousness: patient oriented x3 HEENT Head: Yes normocephalic Ears: external ears normal and TM abnormal with fluid behind the TM General nose exam: Normal external nose present Face and sinus: Yes sinuses nontender Mouth: moist mucous membranes Throat: Yes uvula midline Resp Effort & Inspection: normal respiratory effort Auscultation: clear to auscultation bilaterally Cardio Heart sounds: S1 normal heart sound present and S2 normal heart sound present Neuro General: patient oriented x3 Assessment & Plan Assessment & Plan (1) Acute respiratory disease: Code(s): J06.9 - Acute upper respiratory infection, unspecified Plan: OTC cough remedies Ordered SARs Acetaminophen for pain relief Hydrate well with warm fluids Rest. Orders: Orders SARS-CoV2/FLU/RSV Today R09.89 - Other specified symptoms and signs involving the circulatory and respiratory systems Medications: New acetaminophen 1,000 mg (2 x 500 mg) PO Q6H PRN 30 caps 0RF pain J06.9 - Acute upper respiratory infection, unspecified benzonatate 100 mg PO TID 90 caps 0RF J06.9 - Acute upper respiratory infection, unspecified [id number]-LY-izkpyowyiwc 2.5-5-50 mg/5 mL (Robitussin Cough and Cold CF) 30 mL PO Q6-8H PRN 118 mL 0RF cough J06.9 - Acute upper respiratory infection, unspecified Coding Level of Care Code Est Pt Level 3 (94895) Diagnoses Acute respiratory disease J06.9 Time Spent (min) 15
== END 2024-04-30 12:34 | disposition home or self-care (01) ==
PROVIDERS: PCP Internal Medicine; Visit Provider Nurse Practitioner Family
DX: J06.9 Acute upper respiratory infection, unspecified (principal)

== ENCOUNTER 2024-07-25 08:14 | Outpatient (REF) | payer MEDICARE, SELFPAY ==
[2024-07-25 08:37] LABS: MANUAL DIFF FLAG NO
[2024-07-25 09:04] LABS: Basophils Absolute Auto 0.1 X10*3/uL (0.0-0.2); Basophils Percent Auto 1.1 % (0-2); Eosinophils Absolute Auto 0.6 X10*3/uL (0.0-0.4); Hematocrit 38.4 % (37.0-47.0); Hemoglobin 12.1 g/dl (12.0-16.0); Imm Gran Abs Auto 0.01 X10*3/uL (0.00-0.03); Imm Gran Pct Auto 0.2 % (0.0-0.4); Lymphocytes Absolute Auto 2.1 X10*3/uL (1.2-4.9); Lymphocytes Percent Auto 39.4 % (20-40); Mean Corpuscular HGB Conc 31.5 g/dl (31.0-35.0); Mean Corpuscular Volume 88.9 fL (80.0-98.0); Mean Platelet Volume 9.3 fL (9.4-12.3); Monocytes Absolute Auto 0.4 X10*3/uL (0.1-1.2); Monocytes Percent Auto 7.8 % (2-11); Neutrophils Absolute Auto 2.1 x10*3/uL (2.0-8.3); Neutrophils Percent Auto 39.5 % (45-73); Platelet Count 292 X10*3/uL (160-400); Red Blood Count 4.32 X10*6/uL (4.20-5.50); Red Cell Distribution Width 14.2 % (11.0-16.0); White Blood Count 5.3 X10*3/uL (4.8-10.8)
[2024-07-25 09:23] LABS: Alanine Aminotransferase 11 U/L (0-31); Albumin Level 4.1 g/dL (3.5-5.0); Alkaline Phosphatase 95 U/L (39-117); Anion Gap 12 (12-20); Aspartate Amino Transferase 17 U/L (5-31); Bilirubin Total 0.2 mg/dL (0.0-1.0); Blood Urea Nitrogen 16 mg/dL (9-16); Calcium 9.4 mg/dL (8.4-10.2); Carbon Dioxide 27 mmol/L (22-29); Chloride 110 mmol/L (96-108); Cholesterol 154 mg/dL (<200); Estimated Glomerular Filt Rate > 60; Glucose Fasting 134 mg/dL (60-99); HDL Cholesterol 64 mg/dL (>40); Iron 41 mcg/dL (30-160); LDL Cholesterol Calculated 67 mg/dL (<100); Percent Iron Saturation 15 % (15-50); Potassium 4.8 mmol/L (3.3-5.1); Sodium 144 mmol/L (135-145); Total Iron Binding Capacity 280 mcg/dL (228-428); Total Protein 7.4 g/dL (6.5-8.0); Triglycerides 117 mg/dL (<150); Unsaturated Iron Binding 239 ug/dL
[2024-07-25 09:27] LABS: Creatinine Urine 89.61 mg/dL; Microalbum/Creatinine Ratio Ur 11.1 ug/mg cr (<30)
[2024-07-25 09:38] LABS: Vitamin D 25-OH Total 47.3 ng/mL (>30)
[2024-07-25 09:50] LABS: Folate 13.4 ng/mL (> or = 4.0); Vitamin B12 579 pg/mL (200-900)
== END 2024-07-25 08:15 | disposition home or self-care (01) ==
LOC: HO.LAB 08:14
PROVIDERS: PCP Internal Medicine; Visit Provider Internal Medicine
DX: E11.9 Type 2 diabetes mellitus without complications (principal); E78.5 Hyperlipidemia, unspecified; D64.9 Anemia, unspecified; E55.9 Vitamin D deficiency, unspecified; E53.8 Deficiency of other specified B group vitamins
CPT/HCPCS: 36415; 80053; 80061; 82043; 82306; 82570; 82607; 82746; 83540; 85025

== ENCOUNTER 2024-08-15 08:25 | Outpatient (AMB) | payer MEDICARE, SELFPAY ==
--- NOTE | 2024-08-15 08:59 | A.OFFPC_ITS ---
Vital Signs 08/15/24 09:01 Height 5 ft 2 in Weight 146 lb 2 oz BMI 26.7 BP 100/62 Blood Pressure Location Lt brachial Position Sitting Pulse 74 Pulse Source Pulse Oximeter Temp 97.1 F Temp Source Temporal Artery Scan Pulse Oximetry (%) 96 Oxygen Delivery Method Room Air Intake Visit Reasons: X-ray Test / Knee Pain Intake Note: Patient is here to follow up on Knee pain. Disintegrator Feeder Required: No Information Interpreted: non-clinical & clinical Mathematics Academic Chair: Not Required per policy Accompanied by: Self / Same As Patient Allergies No Known Allergies [No Known Allergies*] Allergy (Verified 08/15/24 09:13) Medication List - Last Reconciled 08/15/24 by Mya Lorenzo PA-C acetaminophen 1,000 mg (2 x 500 mg) PO Q6H PRN ascorbic acid (vitamin C) 500 mg PO DAILY atorvastatin 40 mg PO DAILY [Benadryl Allergy 25 mg PO DAILY] benzonatate 100 mg PO TID blood sugar diagnostic As directed blood sugar diagnostic (FreeStyle Lite Strips) 1 strip miscellaneous TID clotrimazole-betamethasone 1-0.05 % 1 appl topical BID 30 days cyanocobalamin (vitamin B-12) (Vitamin B-12) 500 mcg PO DAILY empagliflozin (Jardiance) 25 mg PO DAILY 90 days ferrous sulfate 325 mg PO BID 90 days hydrocortisone 1% (Anti-Itch (hydrocortisone)) 1 appl topical TID PRN 30 days lancets As directed lisinopril 10 mg PO DAILY 90 days lorazepam (Ativan) 0.5 mg PO BID PRN 30 days metformin 1,000 mg PO BID 90 days omeprazole 20 mg PO DAILY yhsvqffxsncxf-LO-mlrfpulezdv 2.5-5-50 mg/5 mL (Robitussin Cough and Cold CF) 30 mL PO Q6-8H PRN Tobacco use date assessed: 08/15/24 Fall risk assessment: No Falls in past year Last assessed Fall Risk: 08/15/24 Dental Screening Dental Screen Date: 08/15/24 Did you have a dental visit in the last 12 months?: No Did you have a dental problem in the last 6 months where you did not have access to dental care?: No Was dental information given to patient?: Patient has dentist HPI X-ray Test / Knee Pain HPI Details 64-year-old female with past medical his tory of hypertension, dyslipidemia, left breast cancer, diabetes mellitus, GERD last seen 04/[address] Johnson coming in for acute problem. Presenting with knee pain starting approximately two weeks ago, with an intensity occasionally reaching a 10 on a 1-to-10 scale. Pain is provoked by walking and certain movements and alleviated slightly by ibuprofen. Previous episodes of knee pain were not addressed with injections or physical therapy. Topical creams and a brace are used for pain management. Pain locations include the front, side, and occasionally the back of the knee, aggravated by movement but without specific inciting events. [facility] Medical History History of breast cancer Physical exam Breast cancer, left Abnormal mammogram of left breast Dyslipidemia Allergic rhinitis Gastritis Hyperlipidemia Anemia Type 2 diabetes mellitus Hypertension Surgical History History of lumpectomy of left breast Hx of bilateral cataract extraction History of esophagogastroduodenoscopy (EGD) H/O colonoscopy History of surgery History of tubal ligation Family History Father Diabetes Hypertension Mother Diabetes Hypertension Chronic mental illness Brother In good health Brother In good health Sister In good health Son In good health Son In good health Son In good health Social History Household Members: Spouse Housing: House Are you a primary managed care coordinator to a significant other at home: Yes (mother) Do you presently have visiting nurse or other home services: No Alcohol intake: never Patient Tobacco Use Status: Never used Tobacco e-Cigarette/Vaping Use: Never Used Second Hand Smoke Exposure: No service: No Current occupational status: unemployed Cognitive needs: No Hearing needs: No Vision needs: No Questionnaire PHQ-9 Over the last 2 weeks, how often have you been bothered by any of the following problems? 1. Little interest or pleasure in doing things: not at all 2. Feeling down, depressed, or hopeless: not at all 3. Trouble falling or staying asleep, or sleeping too much: not at all 4. Feeling tired or having little energy: not at all 5. Poor appetite or overeating: not at all 6. Feeling bad about yourself - or that you are a failure or have let yourself or your family down: not at all 7. Trouble concentrating on things, such as reading the newspaper or watching television: not at all 8. Moving or speaking so slowly that other people could have noticed. Or the opposite - being so fidgety or restless that you have been moving around a lot more than usual: not at all 9. Thoughts that you would be better off or of hurting yourself in some way: not at all Total score: 0 Depression Screening Interpretation: Negative Depression Screening Done: Yes Source: Developed by Drs. Neo Bonner, Fifi Figueroa, Bertrand Cook and colleagues, with an educational adam from [employer]. Thrive Questionnaire Date Thrive assessed: 08/15/24 I am a: Patient What is your living situation today?: I have a steady place to live Within the past 12 months, did the food you bought not last and you didn't have the money to get more?: Never true Within the past 12 months, did you worry whether your food would run out before you got money to buy more?: Never true Do you have trouble paying for medicines?: No Do you have trouble getting transportation to medical appointments?: No Do you have trouble paying your heating and electricity bill?: No Do you have trouble taking care of your child, family member or friend?: No Do you have trouble with day-to-day activities such as bathing, preparing meals, shopping, managing finances, etc.?: No Are you currently unemployed and looking for a job?: No Are you interested in more education?: No Please select the resources that you would like help with: None Currently or been in a relationship where the following occur: No concerns reported THRIVE Score: 0 AUDIT C Alcohol Use Questionnaire (AUDIT-C) 1. How often do you have a drink containing alcohol?: Never Total Score: 0 ERIN-7 AMB Questionnaire ERIN-7 Date ERIN - 7 assessed: 08/15/24 Feeling nervous, anxious, or on edge: 0 = Not at all Not being able to stop or control worryin = Not at all Worrying too much about different things: 0 = Not at all Trouble relaxin = Not at all Being so restless that it is hard to sit still: 0 = Not at all Becoming easily annoyed or irritable: 0 = Not at all Feeling afraid as if something awful might happen: 0 = Not at all Total ERIN-7 score (0-4 normal; 5-9 mild; 10-14 moderate; 15-21 severe): 0 Source: Developed by Drs. Noe Bonner, Fifi Figueroa, Bertrand Cook and colleagues, with an educational adam from [employer]. Review of Systems Const Denies body aches, Denies chills, Denies fever(s) and Denies poor appetite Eyes Reports no additional complaints ENT Reports no additional complaints Card Denies chest pain and Denies lightheadedness Resp Denies cough GI Denies abdominal pain, Denies nausea and Denies vomiting Reports no additional complaints Musc Details: right knee pain Reports abnormal gait Skin/Breast Reports system reviewed and no additional complaints, except as documented Neuro Reports abnormal gait Psych Reports no additional complaints Physical exam (Primary Care) Vital Signs: Last Vital Signs Temp 97.1 F 08/15/24 09:01 Pulse 74 08/15/24 09:01 BP 100/62 08/15/24 09:01 Pulse Ox 96 08/15/24 09:01 Oxygen Delivery Method Room Air 08/15/24 09:01 BMI result Body Mass Index 26.7 Tobacco/Smoking Status: Tobacco use Status Tobacco use date assessed 08/15/24 08/15/24 09:05 Patient Tobacco Use Status Never used Tobacco 08/15/24 09:00 e-Cigarette/Vaping Use Never Used 08/15/24 09:00 PHQ-9: PHQ-9 Score PHQ-9: Total score 0 08/15/24 09:13 Depression Screening Interpretation: Negative Thrive Assessment: Date of Thrive Assessment Date Thrive assessed 08/15/24 08/15/24 09:00 Currently or been in a relationship where the following occur: No concerns reported Const General: cooperative, healthy appearing, comfortable and no acute distress Orientation/consciousness: patient oriented x3 HENMT Head: Yes normocephalic Ears: hearing grossly normal bilaterally General nose exam: Normal external nose present Eyes General: appearance normal, both eyes and all related structures Conjunctivae: conjunctivae normal Neck Neck: Yes full ROM and Yes no lymphadenopathy Resp Effort & Inspection: normal respiratory effort Auscultation: clear to auscultation bilaterally, no crackles, no rales, no rhonchi and no wheezes Cardio Rate: regular rate Rhythm: regular rhythm Skin General skin exam: no rashes or lesions noted Neuro General: patient oriented x3 Gait exam (Neuro): Normal gait present Extrem Other: tenderness to palpation over the anterior aspect of the right knee. Positive crepitus in bilateral knees. No tenderness to palpation over bilateral calves. Intact strength, sensation and pulses in bilateral lower extremities General: Yes normal to inspection, Yes full ROM and No edema Psych Affect: normal affect Attitude: cooperative Insight: Good insight present (Psych) Judgement: Good judgement present (Psych) Coding Level of Care Code Est Pt Level 3 (82582) Diagnoses Right knee pain M25.561 Assessment & Plan Assessment & Plan (1) Right knee pain: Code(s): M25.561 - Pain in right knee Category: Medical Plan: The treatment plan involves obtaining a knee x-ray to further evaluate the suspected osteoarthritis. Depending on the results, the next step will be managing the pain through physical therapy, as the patient prefers to avoid injections at this time. [id number] pain management will continue, utilizing ibuprofen and Tylenol with consideration given to the patient?s gastrointestinal tolerance. After reviewing the x-ray results, I will contact the patient to discuss further recommendations, potentially involving orthopedic consultation if necessary. Plan This note was constructed using voice recognition software. While every effort has been made to ensure accuracy and field artillery officer, still areas may have been included sometimes these areas may affect the content or meeting of the given symptoms. Total time spent caring for the patient today was 15 minutes. This includes time spent before the visit reviewing the chart, time spent during the visit, and time spent after the visit and documentation. Patient was informed and verbally consented to the use of an ambient scribe for clinic note documentation during this visit. Orders: Orders XR knee RT 2V Today M25.561 - Pain in right knee
[2024-08-15 09:01] VITALS: BP 100/62; PULSE 74; TEMP 36.2; O2SAT 96; BMI 26.7
== END 2024-08-15 09:24 | disposition home or self-care (01) ==
LOC: HO.HMCH 08:26
PROVIDERS: PCP Internal Medicine
DX: M25.561 Pain in right knee (principal)

== ENCOUNTER → 2024-08-15 08:25 | Outpatient (BNVA) | payer MEDICARE, SELFPAY | PROVIDERS: PCP Internal Medicine | DX: M25.561 Pain in right knee (principal) | CPT/HCPCS: 99212 ==

== ENCOUNTER 2024-09-20 21:02 | Emergency (ER) | payer MEDICARE, SELFPAY ==
--- NOTE | 2024-09-20 | ECG_ITS ---
Test Reason : TACHYCARDIA Blood Pressure : */* mmHG Vent. Rate : 123 BPM Atrial Rate : 123 BPM P-R Int : 154 ms QRS Dur : 74 ms QT Int : 306 ms P-R-T Axes : 39 -41 18 degrees QTcB Int : 438 ms Sinus tachycardia Left axis deviation Septal infarct , age undetermined Abnormal ECG When compared with ECG of 07-Jul-2020 12:39, Vent. rate has increased by 54 bpm Septal infarct is now Present Referred By: Generic ED Physician Electronically Signed By: MELQUIADES MARIN MD
--- NOTE | ~2024-09-20 | CT_ITS ---
CLINICAL HISTORY: lower abd pain, tender, fever. Diabetic. Breast CA CT abdomen and pelvis with contrast Comparison: None Findings: Lung bases are clear. No acute bony abnormalities. Mild degenerative change spine and hips. Large hiatal hernia. Liver and spleen within normal limits. Pancreas and adrenal glands unremarkable. Gallbladder is within normal limits. No significant focal renal abnormalities. No renal stones or hydronephrosis. Abdominal aorta is normal in caliber. No free fluid or adenopathy in the pelvis. No diverticulitis. Appendix unremarkable. Uterus normal size. No adnexal abnormality. Impression: No acute process This document has been electronically signed by: Aristeo Oliver MD on 09/21/2024 00:12:52
[2024-09-20 21:16] VITALS: BP 97/57; PULSE 122; RESP 18; TEMP 36.7; O2SAT 98; BMI 25.7
[2024-09-20 21:38] LABS: Hematocrit 39.6 % (37.0-47.0); Hemoglobin 12.8 g/dl (12.0-16.0); Mean Corpuscular HGB Conc 32.3 g/dl (31.0-35.0); Mean Corpuscular Hemoglobin 27.9 pg (27.0-33.0); Mean Corpuscular Volume 86.5 fL (80.0-98.0); Mean Platelet Volume 9.1 fL (9.4-12.3); Platelet Count 237 X10*3/uL (160-400); Red Blood Count 4.58 X10*6/uL (4.20-5.50); White Blood Count 8.3 X10*3/uL (4.8-10.8)
[2024-09-20 21:44] LABS: Appearance Urine Clear; Color Urine Yellow; Glucose Urine UA >=1000 mg/dL (Negative); Leukocyte Esterase Urine Negative (Negative); Nitrite Urine Negative (Negative); Specific Gravity - Urine >= 1.030 (1.005-1.025); UMIC TRIGGER UACC YES; Urine Blood Negative (Negative); Urine Ketones Negative (Negative); Urine Protein Negative (Neg-Trace)
[2024-09-20 21:53] LABS: Alanine Aminotransferase 13 U/L (0-31); Albumin Level 4.2 g/dL (3.5-5.0); Alkaline Phosphatase 88 U/L (39-117); Aspartate Amino Transferase 23 U/L (5-31); Bilirubin Direct < 0.2 mg/dL (0.0-0.5); Bilirubin Total 0.2 mg/dL (0.0-1.0); Blood Urea Nitrogen 24 mg/dL (9-16); Calcium 9.1 mg/dL (8.4-10.2); Creatinine Clr Calc Pharmacy 62.2; Estimated Glomerular Filt Rate > 60; Glucose Random 203 mg/dL (60-115); Lipase 8 U/L (8-78); Magnesium 1.8 mg/dL (1.6-2.6); Total Protein 6.9 g/dL (6.5-8.0)
[2024-09-20 22:04] LABS: Bacteria Urine None Seen (None Seen); RBC Urine 0-2 /HPF (0-2); Squamous Epithelial Cell Urine 0-2 /HPF (0-2); WBC Urine 0-5 /HPF (0-5)
[2024-09-20 22:22] LABS: Anion Gap 14 (12-20); Carbon Dioxide 22 mmol/L (22-29); Chloride 106 mmol/L (96-108); Potassium 4.3 mmol/L (3.3-5.1); Sodium 138 mmol/L (135-145)
--- NOTE | 2024-09-20 22:39 | ED.GENADULT ---
HPI - General Adult General Chief complaint: Abdominal Pain Stated complaint: nausea, headache, abd pain Time Seen by Provider: 09/20/24 22:29 History of Present Illness ED Provider: Frank Rodney MD HPI narrative: 64-year-old female with fever earlier today 100.8 associated with abdominal discomfort nausea vomiting. Nonbloody nonbilious. No abdominal distention. She has no abdominal surgical history is for tubal ligation. No GI bleeding or hematemesis reported. Blood sugars in the 120s at home she took Tylenol before arrival here she does have breast cancer in remission Related Data Home Medications ?Medication ?Instructions ?Recorded ?Confirmed blood sugar diagnostic #10 ea 03/31/20 08/15/24 lancets 28 gauge #100 ea 03/31/20 08/15/24 ascorbic acid (vitamin C) 500 mg 500 mg PO DAILY 07/07/20 08/15/24 tablet Benadryl Allergy 25 mg PO DAILY 08/29/23 08/15/24 Previous Rx's ?Medication ?Instructions ?Recorded lorazepam 0.5 mg tablet (Ativan) 0.5 mg PO BID PRN anxiety 30 days 11/09/21 #15 tabs omeprazole 20 mg capsule,delayed 20 mg PO DAILY #30 caps 01/24/22 release blood sugar diagnostic (FreeStyle 1 strip miscellaneous TID for 09/02/22 Lite Strips) diabetes mellitus #100 ea hydrocortisone 1 % topical cream 1 appl topical TID PRN skin 09/06/22 (Anti-Itch (hydrocortisone)) irritation 30 days #28.4 grams cyanocobalamin (vitamin B-12) 500 500 mcg PO DAILY #90 tabs 07/13/23 mcg tablet (Vitamin B-12) atorvastatin 40 mg tablet 40 mg PO DAILY #90 tabs 04/23/24 empagliflozin 25 mg tablet 25 mg PO DAILY 90 days #90 tabs 04/23/24 (Jardiance) ferrous sulfate 325 mg (65 mg 325 mg PO BID 90 days #180 tabs 04/23/24 iron) tablet lisinopril 10 mg tablet 10 mg PO DAILY 90 days #90 tabs 04/23/24 metformin 1,000 mg tablet 1,000 mg PO BID 90 days #180 tabs 04/23/24 acetaminophen 500 mg capsule 1,000 mg (2 x 500 mg) PO Q6H PRN 04/30/24 pain #30 caps benzonatate 100 mg capsule 100 mg PO TID #90 caps 04/30/24 iqboohrzjoohd-TV-icyfbqvgdkj 2.5 30 ml PO Q6-8H PRN cough #118 mL 04/30/24 mg-5 mg-50 mg/5 mL oral liquid (Robitussin Cough and Cold CF) clotrimazole-betamethasone 1 1 appl topical BID 30 days #15 07/02/24 %-0.05 % topical cream grams ondansetron 4 mg disintegrating 4 mg PO Q8H PRN nausea and 09/21/24 tablet vomiting #7 tabs Allergies Allergy/AdvReac Type Severity Reaction Status Date / Time Seasonal Allergies Allergy Sneezing Verified 09/20/24 21:22 [facility] Past Medical History Medical History History of breast cancer Physical exam Breast cancer, left Abnormal mammogram of left breast Dyslipidemia Allergic rhinitis Gastritis Hyperlipidemia Anemia Type 2 diabetes mellitus Hypertension Surgical History History of lumpectomy of left breast Hx of bilateral cataract extraction History of esophagogastroduodenoscopy (EGD) H/O colonoscopy History of surgery History of tubal ligation Family History Family History Father Diabetes Hypertension Mother Diabetes Hypertension Chronic mental illness Brother In good health Brother In good health Sister In good health Son In good health Son In good health Son In good health Social History Social History Household Members: Spouse Housing: House Are you a primary senior care manager to a significant other at home: Yes (mother) Do you presently have visiting nurse or other home services: No Alcohol intake: never Patient Tobacco Use Status: Never used Tobacco e-Cigarette/Vaping Use: Never Used Second Hand Smoke Exposure: No Advance Directives: No Advance Directives Information Provided: Yes service: No Current occupational status: unemployed Cognitive needs: No Hearing needs: No Vision needs: No Physical Exam ED Vital Signs: Vital Signs - 24 hr 09/20/24 21:16 09/21/24 00:27 Temperature 98.0 F 97.8 F Pulse Rate 122 H 98 Respiratory Rate 18 16 Blood Pressure 97/57 L 104/59 L Pulse Oximetry 98 98 Oxygen Delivery Method Room Air Room Air BMI result Body Mass Index 25.7 Const Other: EXAM: Gen: Alert, awake, well appearing, well hydrated. Head: Atraumatic Eyes: Anicteric, Normal conjunctiva. ENT: Moist mucosa, no pallor. ? Neck: Supple. Respiratory: Breathing comfortably, No distress.Clear to auscultation bilaterally, symmetric chest expansion, No wheeze, rales, ronchi. Cardiovascular: Regular rate and rhythm. No murmurs or rub. Well perfused periphery, warm extremities. No edema. ? Abdominal: Soft, no objective distension. No palpable masses or obvious organomegaly. Mild tenderness mid and lower abdominal region, no guarding, no rebound tenderness or other peritoneal findings. : No flank tenderness. Neuro: Alert. Gross movement of all extremities intact. ? Vital signs: See flowsheet Medications Administered Discontinued Medications Generic Name Dose Route Start Last Admin Trade Name Freq PRN Reason Stop Dose Admin Sodium Chloride 1,000 mls @ 999 mls/hr 09/20/24 22:30 09/20/24 22:50 Ns IV 09/20/24 23:30 999 mls/hr .Q1H1M ARIS Administration Iohexol 85 ml 09/20/24 23:02 09/20/24 23:03 Iohexol 350 Mg/Ml 100 Ml Infus..Btl IV 09/20/24 23:03 85 ml ONCE ONE Administration Morphine Sulfate 2 mg 09/20/24 22:30 09/20/24 22:50 Morphine Sulfate 2 Mg/Ml Cartridge IVPUSH 09/20/24 22:31 2 mg ONCE ONE Administration Protocol Ondansetron HCl 4 mg 09/20/24 22:30 09/20/24 22:50 Ondansetron Hcl 4 Mg/2 Ml Vial IVPUSH 09/20/24 22:31 4 mg ONCE ONE Administration Medical Decision Making Medical Decision Making [facility] Narrative: This is a 64-year-old female with low-grade fever 100.8. Mid abdominal tenderness given age, diabetes, fever think it is reasonable to get a CT though she has no abdominal distention or clinical suggestion of bowel obstruction this is considered. Alternative differentials are diverticulitis, pelvic pathology, UTI, enteritis. Lab Data [facility] Lab Attestation statement: I reviewed the patient's lab results. 09/20/24 21:33 09/20/24 21:33 Labs: Lab Results 09/20/24 09/20/24 Range/Units 21:33 21:38 WBC 8.3 (4.8-10.8) X10*3/uL RBC 4.58 (4.20-5.50) X10*6/uL Hgb 12.8 (12.0-16.0) g/dl Hct 39.6 (37.0-47.0) % MCV 86.5 (80.0-98.0) fL MCH 27.9 (27.0-33.0) pg MCHC 32.3 (31.0-35.0) g/dl RDW 14.0 (11.0-16.0) % Plt Count 237 (160-400) X10*3/uL MPV 9.1 L (9.4-12.3) fL Absolute Nucleated RBC 0.000 (0.0-0.012) X10*3/uL Nucleated RBC % (auto) 0.0 (0.0-0.2) /100WBC Sodium 138 (135-145) mmol/L Potassium 4.3 (3.3-5.1) mmol/L Chloride 106 (96-108) mmol/L Carbon Dioxide 22 (22-29) mmol/L Anion Gap 14 (12-20) BUN 24 H (9-16) mg/dL Creatinine 0.81 (0.5-1.4) mg/dL Estim Creat Clear Calc 62.2 Estimated GFR > 60 Random Glucose 203 H (60-115) mg/dL Calcium 9.1 (8.4-10.2) mg/dL Magnesium 1.8 (1.6-2.6) mg/dL Total Bilirubin 0.2 (0.0-1.0) mg/dL Direct Bilirubin < 0.2 (0.0-0.5) mg/dL AST 23 (5-31) U/L ALT 13 (0-31) U/L Alkaline Phosphatase 88 (39-117) U/L Total Protein 6.9 (6.5-8.0) g/dL Albumin 4.2 (3.5-5.0) g/dL Lipase 8 (8-78) U/L Urine Color Yellow Urine Appearance Clear Urine pH 5.0 (5.0-9.0) Ur Specific [place] >= 1.030 H (1.005-1.025) Urine Protein Negative (Neg-Trace) mg/dL Urine Glucose (UA) >=1000 H (Negative) mg/dL Urine Ketones Negative (Negative) mg/dL Urine Blood Negative (Negative) Urine Nitrite Negative (Negative) Ur Leukocyte Esterase Negative (Negative) Urine RBC 0-2 (0-2) /HPF Urine WBC 0-5 (0-5) /HPF Ur Squamous Epith Cells 0-2 (0-2) /HPF Urine Bacteria None Seen (None Seen) Hyaline Casts 3-5 (0-2) /LPF Independent Interpretation I performed an independent interpretation of an: EKG Interpretation: ECG sinus rhythm poor R-wave progression. No acute ischemic changes. QTC 438 Discharge Plan Discharge Clinical Impression: Abdominal pain, Fever Patient Disposition: Home, Self-Care Instructions: Fever in Adults (ED), Abdominal Pain (ED) Additional Instructions: DISCHARGE DIAGNOSES: Abdominal pain unclear cause at this time CT of the abdomen and pelvis is negative Fever of unclear cause HISTORY OF PRESENTATION: Fever and abdominal pain EMERGENCY DEPARTMENT COURSE,TESTS, TREATMENTS: While in the ED today you had a CT scan of the abdomen and received intravenous fluids and nausea medicine. CT of the abdomen did not show any acute abnormalities or infection or other cause of your pain DISCHARGE MEDICATIONS: ?[We have made no changes to your regular medication regimen] we have prescribed you as needed nausea medicine tablets FOLLOW-UP: ?Call your primary or general physician soon as possible to discuss your symptoms, your ED visit and to discuss follow up plans Call your primary doctor for follow up INSTRUCTIONS ?& RETURN PRECAUTIONS: If any symptoms change first call your primary physician, if it is after-hours your primary doctors office should have a provider general education instructor you can speak with. If the symptoms are severe or very concerning to you then call 911 or return to the ED. If your blood sugar becomes persistently severely high you develop high or persistent fever , difficulty breathing, nausea or vomiting that will not stop despite medication return back to the emergency department Frank Rodney MD Emergency Physician [facility] Prescriptions: New ondansetron 4 mg tablet,disintegrating 4 mg PO Q8H PRN (Reason: nausea and vomiting) Qty: 7 0RF No Action omeprazole 20 mg capsule,delayed release(DR/EC) 20 mg PO DAILY Qty: 30 6RF FreeStyle Lite Strips Strip 1 strip miscellaneous TID Qty: 100 3RF ferrous sulfate 325 mg (65 mg iron) tablet 325 mg PO BID 90 Days Qty: 180 0RF atorvastatin 40 mg tablet 40 mg PO DAILY Qty: 90 0RF metformin 1,000 mg tablet 1,000 mg PO BID 90 Days Qty: 180 0RF lisinopril 10 mg tablet 10 mg PO DAILY 90 Days Qty: 90 0RF Jardiance 25 mg tablet 25 mg PO DAILY 90 Days Qty: 90 0RF clotrimazole-betamethasone 1-0.05 % cream 1 appl topical BID 30 Days Qty: 15 0RF ascorbic acid (vitamin C) 500 mg Tablet 500 mg PO DAILY Benadryl Allergy 25 mg PO DAILY (DME) FreeStyle Lite Strips Strip See Rx Instructions .ROUTE .MEDSUPPLY Qty: 10 Rx Instructions: As directed (DME) lancets 28 gauge misc See Rx Instructions topical TID Qty: 100 Rx Instructions: As directed lorazepam [Ativan] 0.5 mg tablet 0.5 mg PO BID PRN (Reason: anxiety) 30 Days Qty: 15 0RF hydrocortisone [Anti-Itch (HC)] 1 % cream 1 appl topical TID PRN (Reason: skin irritation) 30 Days Qty: 28.4 0RF cyanocobalamin (vitamin B-12) [Vitamin B-12] 500 mcg tablet 500 mcg PO DAILY Qty: 90 3RF acetaminophen 500 mg capsule 1,000 mg PO Q6H PRN (Reason: pain) Qty: 30 0RF benzonatate 100 mg capsule 100 mg PO TID Qty: 90 0RF Robitussin Cough and Cold CF 2.5-5-50 mg/5 mL liquid 30 ml PO Q6-8H PRN (Reason: cough) Qty: 118 0RF Print Language: Estonian
[2024-09-20] MEDS: ondansetron HCL 4 MG/2 ML VIAL IVPUSH (22:50)
[2024-09-20] MEDS: 0.9 % Sodium Chloride 1,000 ML 999 ML IV (22:50)
[2024-09-20] MEDS: Morphine Sulfate 2 MG/ML CARTRIDGE IVPUSH (22:50)
--- NOTE | 2024-09-20 22:50 | PC.NURSE ---
Pt a/ox3, in no acute distress. IV line place in Right AC. PT medicated as per AUG. Pain reassessment pending PT to CT for imaging
[2024-09-20] MEDS: iohexoL 350 MG/ML 100 ML INFUS..BTL 85 ML IV (23:03)
[2024-09-21 00:27] VITALS: BP 104/59; PULSE 98; RESP 16; TEMP 36.6; O2SAT 98
[2024-09-21 01:27] VITALS: BP 90/57; PULSE 92; RESP 18; TEMP 36.6; O2SAT 97
[2024-09-21 02:16] VITALS: BP 102/57; PULSE 101; RESP 18; TEMP 36.6; O2SAT 97
== END 2024-09-21 02:19 | disposition home or self-care (01) ==
PROVIDERS: Emergency Provider Emergency Medicine
DX: R51.9 Headache, unspecified (principal); R11.2 Nausea with vomiting, unspecified; R10.2 Pelvic and perineal pain; R50.9 Fever, unspecified; R00.0 Tachycardia, unspecified; Z79.899 Other long term (current) drug therapy
CPT/HCPCS: 36415; 74177; 80053; 81001; 82248; 83690; 83735; 85027; 93005; 96374; 96375; 99284; J2270; J2405; Q9967

== ENCOUNTER → 2024-09-20 21:28 | Outpatient (BNV) | payer MEDICARE, SELFPAY | PROVIDERS: Emergency Provider Emergency Medicine; Visit Provider Internal Medicine Cardiovascular Disease | DX: R00.0 Tachycardia, unspecified (principal) | CPT/HCPCS: 93010 ==

== ENCOUNTER → 2024-09-20 22:30 | Outpatient (BNV) | payer MEDICARE, SELFPAY | PROVIDERS: Emergency Provider Emergency Medicine; Visit Provider Radiology Diagnostic Radiology | DX: R10.30 Lower abdominal pain, unspecified (principal); R50.9 Fever, unspecified; E11.9 Type 2 diabetes mellitus without complications; C50.919 Malignant neoplasm of unspecified site of unspecified female breast | CPT/HCPCS: 74177 ==

== ENCOUNTER 2024-09-27 07:24 | Outpatient (AMB) | payer MEDICARE, SELFPAY ==
--- NOTE | 2024-09-27 07:29 | A.OFFPC_ITS ---
Vital Signs 09/27/24 07:30 Height 5 ft 3 in Weight 147 lb BMI 26.0 BP 124/62 Blood Pressure Location Lt brachial Position Sitting Pulse 71 Pulse Source Pulse Oximeter Pulse Oximetry (%) 98 Oxygen Delivery Method Room Air Intake Visit Reasons: [facility] 09/21 Nausea/headaches Allergies Seasonal Allergies Allergy (Verified 09/27/24 07:30) Sneezing Tobacco use date assessed: 08/15/24 Fall risk assessment: No Falls in past year Last assessed Fall Risk: 09/27/24 Dental Screening Dental Screen Date: 08/15/24 HPI HPI Comments History of Present Illness Details 64 y/o Female Patient who [facility]. Pt was seen at [facility] on 09/20/[address] Abdomen was negative and she was discharged home the same day on stable condition. Pt states that her BP readings in the hospital and after discharged home have been lower. Pt has not taken her Lisinopril since hospital discharge, because she concerned that BP is lower than usual. Pt does not have BP monitoring device at home and has not checked BP. Today's BP reading is 124/62 stable and asymptomatic. [facility] Medical History History of breast cancer Physical exam Breast cancer, left Abnormal mammogram of left breast Dyslipidemia Allergic rhinitis Gastritis Hyperlipidemia Anemia Type 2 diabetes mellitus Hypertension Surgical History History of lumpectomy of left breast Hx of bilateral cataract extraction History of esophagogastroduodenoscopy (EGD) H/O colonoscopy History of surgery History of tubal ligation Family History Father Diabetes Hypertension Mother Diabetes Hypertension Chronic mental illness Brother In good health Brother In good health Sister In good health Son In good health Son In good health Son In good health Social History Household Members: Spouse Housing: House Are you a primary foster care case manager to a significant other at home: Yes (mother) Do you presently have visiting nurse or other home services: No Alcohol intake: never Patient Tobacco Use Status: Never used Tobacco Tobacco use type: Cigarette e-Cigarette/Vaping Use: Never Used Second Hand Smoke Exposure: No service: No Current occupational status: unemployed Cognitive needs: No Hearing needs: No Vision needs: Yes Questionnaire Thrive Questionnaire Date Thrive assessed: 08/15/24 ERIN-7 AMB Questionnaire ERIN-7 Date ERIN - 7 assessed: 08/15/24 Source: Developed by Drs. Noe Bonner, Fifi Figueroa, Bertrand Cook and colleagues, with an educational adam from [employer]. Review of Systems Const All systems reviewed & are unremarkable except as noted in HPI and below Physical exam (Primary Care) Vital Signs: Last Vital Signs Pulse 71 09/27/24 07:30 BP 124/62 09/27/24 07:30 Pulse Ox 98 09/27/24 07:30 Oxygen Delivery Method Room Air 09/27/24 07:30 BMI result Body Mass Index 26.0 Tobacco/Smoking Status: Tobacco use Status Tobacco use date assessed 08/15/24 09/27/24 07:31 Patient Tobacco Use Status Never used Tobacco 09/27/24 07:31 Tobacco use type Cigarette 09/27/24 07:31 e-Cigarette/Vaping Use Never Used 09/27/24 07:31 Thrive Assessment: Date of Thrive Assessment Date Thrive assessed 08/15/24 09/27/24 07:31 Const General: comfortable and no acute distress Orientation/consciousness: patient oriented x3 Resp Effort & Inspection: normal respiratory effort Auscultation: clear to auscultation bilaterally Cardio Rhythm: regular rhythm Heart sounds: S1 normal heart sound present and S2 normal heart sound present GI Palpation (GI): Soft to palpation Auscultation: normal bowel sounds Neuro General: patient oriented x3 Results AMB Hemoglobin A1c AMB Hemoglobin A1c 7.1 % Last Edit by Jannette Hoffman CMA on 09/27/24 07 :49 Coding Level of Care Code Est Pt Level 4 (96971) Diagnoses Generalized abdominal pain R10.84 Abdominal location: generalized Primary hypertension I10 Hypertension type: primary hypertension Time Spent (min) 20 Assessment & Plan Assessment & Plan (1) Abdominal pain: Code(s): R10.9 - Unspecified abdominal pain Category: Medical Qualifiers: Abdominal location: generalized Qualified Code(s): R10.84 - Generalized abdominal pain Plan: Stable. (2) Hypertension: Code(s): I10 - Essential (primary) hypertension Category: Medical Qualifiers: Hypertension type: primary hypertension Qualified Code(s): I10 - Essential (primary) hypertension Plan: Advised Pt to Purchase BP monitor and continue to Monitor BPs at Home. Hold Lisinopril if BP readings are Trending Down. Keep BP Log and F/U with PCP. Orders: Orders AMB Hemoglobin A1c Today Z13.9 - Encounter for screening, unspecified
[2024-09-27 07:30] VITALS: BP 124/62; PULSE 71; O2SAT 98; BMI 26.0
== END 2024-09-27 09:04 | disposition home or self-care (01) ==
LOC: HO.HMCH 07:25
PROVIDERS: PCP Internal Medicine; Visit Provider Nurse Practitioner Family
DX: R10.84 Generalized abdominal pain (principal); I10 Essential (primary) hypertension; Z13.9 Encounter for screening, unspecified

== ENCOUNTER → 2024-09-27 07:24 | Outpatient (BNVA) | payer MEDICARE, SELFPAY | PROVIDERS: PCP Internal Medicine; Visit Provider Nurse Practitioner Family | DX: R10.84 Generalized abdominal pain (principal); I10 Essential (primary) hypertension; E11.9 Type 2 diabetes mellitus without complications | CPT/HCPCS: 83036; 99212 ==

== ENCOUNTER 2024-12-09 08:34 | Outpatient (REF) | payer MEDICARE, SELFPAY ==
[2024-12-09 12:37] LABS: Resp Syncy Virus RNA Qual PCR NEGATIVE (Negative); SARS COV2 PCR INHOUSE NEGATIVE (Negative)
== END 2024-12-09 08:35 | disposition home or self-care (01) ==
LOC: HO.LAB 08:34
PROVIDERS: PCP Internal Medicine; Visit Provider Nurse Practitioner Family
DX: J06.9 Acute upper respiratory infection, unspecified (principal); Z03.818 Encounter for observation for suspected exposure to other biological agents ruled out
CPT/HCPCS: 87637; 99212

== ENCOUNTER 2024-12-09 08:34 | Outpatient (AMB) | payer MEDICARE, SELFPAY ==
[2024-12-09 08:43] VITALS: BP 120/60; PULSE 92; TEMP 36.7; O2SAT 99; BMI 26.2
--- NOTE | 2024-12-09 08:43 | AM.OFFWIN_ITS ---
Intake Vital Signs 12/09/24 08:43 Height 5 ft 3 in Weight 148 lb BMI 26.2 BP 120/60 Blood Pressure Location Lt brachial Position Sitting Pulse 92 Pulse Source Pulse Oximeter Temp 98.0 F Temp Source Oral Pulse Oximetry (%) 99 Oxygen Delivery Method Room Air Intake Visit Reasons: EP Cough, chest congestion, headache, fever Intake Note: Patient presents with cough and congestion times 2 days. Cough is non productive Patient Tobacco Use Status: Never used Tobacco Offset Press Assistant Required: No Is last menstrual period known: No Post menopausal: Yes Patient : No Allergies Seasonal Allergies Allergy (Verified 12/09/24 08:46) Sneezing Do you need a note to return to daycare/school/sports/work: Yes HPI HPI Comments History of Present Illness Details 64 y/o Female patient who presents to [facility] walk [facility] clinic with c/o Non- productive Cough and congestion for 2 days. Denies Fevers or chills. [facility] Medical History (Updated 12/09/24 @ 09:16 by Lala Coffey NP) Acute respiratory disease History of breast cancer Physical exam Breast cancer, left Abnormal mammogram of left breast Dyslipidemia Allergic rhinitis Gastritis Hyperlipidemia Anemia Type 2 diabetes mellitus Hypertension Surgical History History of lumpectomy of left breast Hx of bilateral cataract extraction History of esophagogastroduodenoscopy (EGD) H/O colonoscopy History of surgery History of tubal ligation Family History Father Diabetes Hypertension Mother Diabetes Hypertension Chronic mental illness Brother In good health Brother In good health Sister In good health Son In good health Son In good health Son In good health Social History Household Members: Spouse Housing: House Are you a primary critical care physician to a significant other at home: Yes (mother) Do you presently have visiting nurse or other home services: No Alcohol intake: never Patient Tobacco Use Status: Never used Tobacco Tobacco use type: Cigarette e-Cigarette/Vaping Use: Never Used Second Hand Smoke Exposure: No Patient : No service: No Current occupational status: unemployed Cognitive needs: No Hearing needs: No Vision needs: Yes Review of Systems Const All systems reviewed & are unremarkable except as noted in HPI and below Physical Exam Vital Signs: Last Vital Signs Temp 98.0 F 12/09/24 08:43 Pulse 92 12/09/24 08:43 BP 120/60 12/09/24 08:43 Pulse Ox 99 12/09/24 08:43 Oxygen Delivery Method Room Air 12/09/24 08:43 BMI result Body Mass Index 26.2 Const General: no acute distress Nutritional Appearance: well nourished Orientation/consciousness: patient oriented x3 HEENT Head: Yes normocephalic Ears: external ears normal and TM abnormal with fluid behind the TM bilateral General nose exam: Normal external nose present and Nasal discharge present Face and sinus: Yes sinuses nontender Mouth: moist mucous membranes Throat: Yes uvula midline Resp Effort & Inspection: normal respiratory effort Auscultation: clear to auscultation bilaterally, no crackles, no rales, no rhonchi and no wheezes Cardio Heart sounds: S1 normal heart sound present and S2 normal heart sound present Neuro General: patient oriented x3 Assessment & Plan Assessment & Plan (1) Acute respiratory disease: Code(s): J06.9 - Acute upper respiratory infection, unspecified Plan: Ordered SARs OTC cough Remedies Rest and hydrate well with fluids Acetaminophen for pain relief. Orders: Orders SARS-CoV2/FLU/RSV Today J06.9 - Acute upper respiratory infection, unspecified Medications: Changed From benzonatate 100 mg PO TID 90 caps 0RF J06.9 - Acute upper respiratory infection, unspecified To benzonatate 200 mg (2 x 100 mg) PO BID 60 caps 0RF cough J06.9 - Acute upper respiratory infection, unspecified Coding Level of Care Code Est Pt Level 4 (67874) Diagnoses Acute respiratory disease J06.9 Time Spent (min) 20
== END 2024-12-09 09:38 | disposition home or self-care (01) ==
PROVIDERS: PCP Internal Medicine; Visit Provider Nurse Practitioner Family
DX: J06.9 Acute upper respiratory infection, unspecified (principal)

== ENCOUNTER 2024-12-11 14:07 | Outpatient (AMB) | payer MEDICARE, SELFPAY ==
--- NOTE | 2024-12-11 14:35 | MHC.PC.OV ---
Vital Signs 12/11/24 14:45 Height 5 ft 3 in Weight 147 lb BMI 26.0 BP 112/64 Blood Pressure Location Lt brachial Position Sitting Intake Visit Reasons: 4mth f/u Intake Note: Patient here for a 4 month follow up Supervisor Riveting Required: No Accompanied by: Self / Same As Patient Allergies Seasonal Allergies Allergy (Verified 12/11/24 15:00) Sneezing Medication List - Last Reconciled 12/11/24 by Joycelyn Huerta MD acetaminophen 1,000 mg (2 x 500 mg) PO Q6H PRN atorvastatin 40 mg PO DAILY benzonatate 200 mg (2 x 100 mg) PO BID blood sugar diagnostic As directed blood sugar diagnostic (FreeStyle Lite Strips) 1 strip miscellaneous TID clotrimazole-betamethasone 1-0.05 % 1 appl topical BID 30 days cyanocobalamin (vitamin B-12) (Vitamin B-12) 500 mcg PO DAILY empagliflozin (Jardiance) 25 mg PO DAILY 90 days ferrous sulfate 325 mg PO BID 90 days hydrocortisone 1% (Anti-Itch (hydrocortisone)) 1 appl topical TID PRN 30 days lancets As directed lisinopril 10 mg PO DAILY 90 days lorazepam (Ativan) 0.5 mg PO BID PRN 30 days metformin 1,000 mg PO BID 90 days omeprazole 20 mg PO DAILY ondansetron 4 mg PO Q8H PRN zssfwbjxyyxcc-OZ-awohpvljose 2.5-5-50 mg/5 mL (Robitussin Cough and Cold CF) 30 mL PO Q6-8H PRN Tobacco use date assessed: 08/15/24 Dental Screening Dental Screen Date: 08/15/24 HPI HPI Comments History of Present Illness Details This is a 64-year-old female with diabetes mellitus type 2, hypertension, and dyslipidemia that comes today complaining of right knee pain that has been present for few months. She also has nasal congestion and productive cough that started 4 days ago. Went to urgent care 2 days ago and was given benzonatate which has not relieved the cough or symptoms. I will start her on doxycycline. Last A1c was in September and it was 7.1%. Blood pressure within goal being less than 130/80. Lipid panel will be order for her next office visit. [facility] Medical History Acute respiratory disease History of breast cancer Physical exam Breast cancer, left Abnormal mammogram of left breast Dyslipidemia Allergic rhinitis Gastritis Hyperlipidemia Anemia Type 2 diabetes mellitus Hypertension Surgical History History of lumpectomy of left breast Hx of bilateral cataract extraction History of esophagogastroduodenoscopy (EGD) H/O colonoscopy History of surgery History of tubal ligation Family History Father Diabetes Hypertension Mother Diabetes Hypertension Chronic mental illness Brother In good health Brother In good health Sister In good health Son In good health Son In good health Son In good health Social History Household Members: Spouse Housing: House Are you a primary respiratory care assistant to a significant other at home: Yes (mother) Do you presently have visiting nurse or other home services: No Alcohol intake: never Patient Tobacco Use Status: Never used Tobacco e-Cigarette/Vaping Use: Never Used Second Hand Smoke Exposure: No service: No Current occupational status: unemployed Cognitive needs: No Hearing needs: No Vision needs: Yes Questionnaire PHQ-9 Over the last 2 weeks, how often have you been bothered by any of the following problems? 1. Little interest or pleasure in doing things: not at all 2. Feeling down, depressed, or hopeless: not at all 3. Trouble falling or staying asleep, or sleeping too much: not at all 4. Feeling tired or having little energy: not at all 5. Poor appetite or overeating: not at all 6. Feeling bad about yourself - or that you are a failure or have let yourself or your family down: not at all 7. Trouble concentrating on things, such as reading the newspaper or watching television: not at all 8. Moving or speaking so slowly that other people could have noticed. Or the opposite - being so fidgety or restless that you have been moving around a lot more than usual: not at all 9. Thoughts that you would be better off or of hurting yourself in some way: not at all Total score: 0 Depression Screening Interpretation: Negative Depression Screening Done: Yes 99877 - PHQ-9 Billing: Yes Source: Developed by Drs. Noe Bonner, Fifi Figueroa, Bertrand Cook and colleagues, with an educational adam from [employer]. Thrive Questionnaire Date Thrive assessed: 12/11/24 I am a: Patient What is your living situation today?: I have a steady place to live Within the past 12 months, did the food you bought not last and you didn't have the money to get more?: Never true Within the past 12 months, did you worry whether your food would run out before you got money to buy more?: Never true Do you have trouble paying for medicines?: No Do you have trouble getting transportation to medical appointments?: No Do you have trouble paying your heating and electricity bill?: No Do you have trouble taking care of your child, family member or friend?: No Do you have trouble with day-to-day activities such as bathing, preparing meals, shopping, managing finances, etc.?: No Are you currently unemployed and looking for a job?: No Are you interested in more education?: No Please select the resources that you would like help with: None Currently or been in a relationship where the following occur: No concerns reported THRIVE Score: 0 AUDIT C Alcohol Use Questionnaire (AUDIT-C) 1. How often do you have a drink containing alcohol?: Never Total Score: 0 Score Reviewed/Action Taken: No ERIN-7 AMB Questionnaire ERIN-7 Date ERIN - 7 assessed: 12/11/24 Feeling nervous, anxious, or on edge: 0 = Not at all Not being able to stop or control worryin = Not at all Worrying too much about different things: 0 = Not at all Trouble relaxin = Not at all Being so restless that it is hard to sit still: 0 = Not at all Becoming easily annoyed or irritable: 0 = Not at all Feeling afraid as if something awful might happen: 0 = Not at all Total ERIN-7 score (0-4 normal; 5-9 mild; 10-14 moderate; 15-21 severe): 0 Source: Developed by Drs. Noe Bonner, Bertrand Valdovinos and colleagues, with an educational adam from [employer]. ERIN-7 Assessment Billing ERIN-7 Assessment Tool: ERIN-7 Assessment 61698 Review of Systems Const All systems reviewed & are unremarkable except as noted in HPI and below Card Denies chest pain at rest, Denies chest pain with activity, Denies edema, Denies irregular heart rhythm, Denies claudication, Denies dyspnea, Denies dyspnea on exertion, Denies orthopnea, Denies paroxysmal nocturnal dyspnea and Denies slow heart rate Resp Denies cough, Denies dyspnea and Denies dyspnea on exertion GI Denies abdominal pain, Denies change in bowel habits, Denies excessive flatus, Denies nausea and Denies vomiting Physical exam (Primary Care) Vital Signs: Last Vital Signs BP 112/64 12/11/24 14:45 BMI result Body Mass Index 26.0 Tobacco/Smoking Status: Tobacco use Status Tobacco use date assessed 08/15/24 12/11/24 14:37 Patient Tobacco Use Status Never used Tobacco 12/11/24 14:37 Tobacco use type 12/11/24 14:50 e-Cigarette/Vaping Use Never Used 12/11/24 14:37 PHQ-9: PHQ-9 Score PHQ-9: Total score 0 12/11/24 15:04 Depression Screening Interpretation: Negative Thrive Assessment: Date of Thrive Assessment Date Thrive assessed 12/11/24 12/11/24 14:37 Currently or been in a relationship where the following occur: No concerns reported Resp Effort & Inspection: normal respiratory effort Auscultation: clear to auscultation bilaterally Cardio Jugular venous distension: no JVD Rate: regular rate Rhythm: regular rhythm Heart sounds: S1 normal heart sound present and S2 normal heart sound present Extrem General: Yes full ROM Immunizations pneumoc 20-yifan conj-dip cr(PF) 0.5 mL IM syringe Performing Provider: Joycelyn Huerta MD [facility] Administered by: JACOB Juarez on 12/11/24 15:16 Dose Route Admin Location Dispensed Lot Number Expiration Date [facility] [place] [employer] 0.5 mL IM Left Deltoid 0.5 mL [id number] 12/03/25 Mobile [employer]PFIZER Total Dispensed Waste 0.5 mL 0 % VIS Given Date VIS Provided VIS Publication Date 12/11/24 Single Vaccine 24 Eligibility Eligibility Date Funding Source Not [facility] Eligible 12/11/24 Private Coding Level of Care Code Est Pt Level 4 (08521) Complex EM visit Add On G2211 Diagnoses Type 2 diabetes mellitus without complication, without long-term current use of insulin E11.9 Diabetes mellitus type: type 2 Diabetes mellitus custodial insulin use: without custodial use Diabetes mellitus complication status: without complication Dyslipidemia E78.5 Primary hypertension I10 Hypertension type: primary hypertension Acute respiratory disease J06.9 Right knee pain M25.561 Additional Codes PHQ-9 - 51389 - PHQ-9 Billing: Yes ([id number]) ERIN-7 Assessment Billing - ERIN-7 Assessment Tool: ERIN-7 Assessment 13794 ([id number]) Time Spent (min) 24 Assessment & Plan Assessment & Plan (1) Diabetes mellitus: Code(s): E11.9 - Type 2 diabetes mellitus without complications Category: Medical Qualifiers: Diabetes mellitus type: type 2 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 Diabetes mellitus complication status: without complication Qualified Code(s): E11.9 - Type 2 diabetes mellitus without complications (2) Dyslipidemia: Code(s): E78.5 - Hyperlipidemia, unspecified Category: Medical (3) Hypertension: Code(s): I10 - Essential (primary) hypertension Category: Medical Qualifiers: Hypertension type: primary hypertension Qualified Code(s): I10 - Essential (primary) hypertension (4) Acute respiratory disease: Code(s): J06.9 - Acute upper respiratory infection, unspecified Category: Medical (5) Right knee pain: Code(s): M25.561 - Pain in right knee Category: Medical Plan Continue current meds. A1c goal is equal or less than 7%. LDL goal is less than 70. Blood pressure goal is equal or less than 130/80. Right knee x-ray reorder since it . Labs ordered to be done for the next office visit. Start doxycycline. Pneumonia vaccine place today. Orders: Orders XR knee RT 2V Today M25.561 - Pain in right knee Vitamin B12 and Folate 4 Months E53.8 - Deficiency of other specified B group vitamins Comprehensive [place]. Panel Fast 4 Months E11.9 - Type 2 diabetes mellitus without complications Lipid Panel 4 Months E78.5 - Hyperlipidemia, unspecified Microalbumin, Random (w Creat) 4 Months R80.9 - Proteinuria, unspecified Vitamin D 25-OH Total 4 Months E55.9 - Vitamin D deficiency, unspecified Pneumococcal 20 Immunization Today Z23 - Encounter for immunization XR DEXA axial skeleton Today E11.9 - Type 2 diabetes mellitus without complications, Z78.0 - Asymptomatic menopausal state Medications: New doxycycline hyclate 100 mg PO BID 10 caps 0RF 5 days Discontinued ferrous sulfate Discontinued Reason: Patient Completed Course 325 mg PO BID 90 days 180 tabs 0RF
[2024-12-11 14:45] VITALS: BP 112/64; BMI 26.0
== END 2024-12-11 15:14 | disposition home or self-care (01) ==
LOC: HO.HMCH 14:07
PROVIDERS: PCP Internal Medicine; Visit Provider Internal Medicine
DX: E11.9 Type 2 diabetes mellitus without complications (principal); E78.5 Hyperlipidemia, unspecified; I10 Essential (primary) hypertension; J06.9 Acute upper respiratory infection, unspecified; M25.561 Pain in right knee; Z23 Encounter for immunization

== ENCOUNTER → 2024-12-11 14:07 | Outpatient (BNVA) | payer MEDICARE, SELFPAY | PROVIDERS: PCP Internal Medicine; Visit Provider Internal Medicine | DX: E11.9 Type 2 diabetes mellitus without complications (principal); Z23 Encounter for immunization; E78.5 Hyperlipidemia, unspecified; I10 Essential (primary) hypertension; J06.9 Acute upper respiratory infection, unspecified; M25.561 Pain in right knee; Z13.31 Encounter for screening for depression; Z13.30 Encounter for screening examination for mental health and behavioral disorders, unspecified | CPT/HCPCS: 90471; 90677; 96127; 99212 ==

== ENCOUNTER 2024-12-16 14:26 | Outpatient (REF) | payer MEDICARE, SELFPAY ==
--- NOTE | ~2024-12-16 | MM_ITS ---
EXAMINATION: MM DIAGNOSTIC DIGITAL BREAST TOMOSYNTHESIS, BILATERAL CLINICAL INFORMATION: History of left breast cancer in 2021 status post lumpectomy. COMPARISON: Mammography: Comparison is made with relevant prior exams. TECHNIQUE: Digital breast mammography with tomosynthesis is performed in both the craniocaudal and mediolateral oblique views along with computer-aided detection (CAD). FINDINGS: There are scattered areas of fibroglandular density (ACR BI-RADS breast composition Category b). Status post left lumpectomy changes are stable. Focal asymmetry upper outer right breast posterior depth stable dating back to 2020. There are no significant masses, abnormal calcifications, or other abnormalities. Results are provided to the patient at time of visit by the technologist. MM/MM tomosynthesis diagnostic BI IMPRESSION: There are no significant changes from prior study. ASSESSMENT: BI-RADS BI-RADS 2 - Benign Findings RECOMMENDATION: 1 year F/U This patient's information was entered into a reminder system with a target due date for their next mammogram. Electronically signed by: Aida Vásquez DO 12/17/2024 02:19 PM EDT
== END 2024-12-16 14:27 | disposition home or self-care (01) ==
LOC: HO.MAMMO 14:26
PROVIDERS: PCP Internal Medicine; Visit Provider Internal Medicine
DX: Z85.3 Personal history of malignant neoplasm of breast (principal)
CPT/HCPCS: 77062; 77066

== ENCOUNTER → 2024-12-16 15:00 | Outpatient (BNV) | payer MEDICARE, SELFPAY | PROVIDERS: PCP Internal Medicine; Visit Provider Internal Medicine | DX: Z85.3 Personal history of malignant neoplasm of breast (principal) | CPT/HCPCS: 77066; G0279 ==

== ENCOUNTER 2025-01-20 15:06 | Outpatient (AMB) | payer MEDICARE, SELFPAY ==
--- NOTE | 2025-01-20 15:17 | MHC.OFFVIS ---
Vital Signs 01/20/25 15:24 Height 5 ft 3 in Weight 157 lb BMI 27.8 BP 128/67 Blood Pressure Location Rt brachial Position Sitting Pulse 72 Intake Visit Reasons: yearly breast exam Intake Note: Patient here for yearly breast exam. Patient c/o: no concerns. Denies breast pain, tenderness, nipple discharge. Imaging: MM~ 12-16-2024 Charge Operator Required: No Accompanied by: Self / Same As Patient Allergies Seasonal Allergies Allergy (Verified 01/20/25 15:22) Sneezing HPI HPI yearly breast exam: Details: She had lumpectomy and sentinel biopsy for left breast invasive cancer last Oct, 2021. She had a T1 N0 lesion at that time, ER SC negative, HER2 positive. She did undergo adjuvant chemotherapy because of the ERPR positive tumor. She had completed radiation to the left breast She feels well overall and denies any significant complaints. She denies any palpable mass or nipple or breast changes. She had a mammogram last [id number] and this does not suggest any recurrence. [facility] Medical History Acute respiratory disease History of breast cancer Physical exam Breast cancer, left Abnormal mammogram of left breast Dyslipidemia Allergic rhinitis Gastritis Hyperlipidemia Anemia Type 2 diabetes mellitus Hypertension Surgical History History of lumpectomy of left breast Hx of bilateral cataract extraction History of esophagogastroduodenoscopy (EGD) H/O colonoscopy History of surgery History of tubal ligation Family History Father Diabetes Hypertension Mother Diabetes Hypertension Chronic mental illness Brother In good health Brother In good health Sister In good health Son In good health Son In good health Son In good health Social History Household Members: Spouse Housing: House Are you a primary medicare specialist to a significant other at home: Yes (mother) Do you presently have visiting nurse or other home services: No Alcohol intake: never Patient Tobacco Use Status: Never used Tobacco e-Cigarette/Vaping Use: Never Used Second Hand Smoke Exposure: No service: No Current occupational status: unemployed Cognitive needs: No Hearing needs: No Vision needs: Yes Review of Systems Const Denies chills and Denies fever(s) Card Denies chest pain, Denies dyspnea and Denies dyspnea on exertion Resp Denies cough, Denies dyspnea and Denies dyspnea on exertion GI Denies hematochezia and Denies change in bowel habits Denies hematuria Musc Denies back pain and Denies limited range of motion Neuro Denies focal weakness and Denies convulsions Psych Denies depression and Denies mood swings Physical Exam Vital Signs: Last Vital Signs Pulse 72 01/20/25 15:24 BP 128/67 01/20/25 15:24 BMI result Body Mass Index 27.8 Const General: comfortable and no acute distress Orientation/consciousness: patient oriented x3 Neck Neck: Yes no lymphadenopathy Chest Other: No palpable breast masses, no axillary lymphadenopathy, no nipple or skin changes Resp Auscultation: clear to auscultation bilaterally Cardio Rhythm: regular rhythm GI Palpation (GI): Soft to palpation, nontender and no guarding Neuro General: patient oriented x3 Assessment & Plan Assessment & Plan (1) History of breast cancer: Code(s): Z85.3 - Personal history of malignant neoplasm of breast Category: Medical Plan: She is status post lumpectomy and sentinel biopsy in 2021 for invasive ductal carcinoma. She had a T1 N0 tumor at that time but she underwent adjuvant chemotherapy with TCH in view of her hormone receptor negative cancer She is currently doing well. I have reviewed her last mammogram 3 weeks ago and this is unremarkable without any suggestion of any recurrence Her breast exam is unremarkable as well She is to continue with follow up with Dr. Mendoza. I will see her again in 1 year. I also reminded her to continue with the regular yearly mammograms. Coding Level of Care Code Est Pt Level 3 (45275) Complex EM visit Add On G2211 Diagnoses History of breast cancer Z85.3
[2025-01-20 15:24] VITALS: BP 128/67; PULSE 72; BMI 27.8
== END 2025-01-20 15:36 | disposition home or self-care (01) ==
LOC: HO.HGS 15:07
PROVIDERS: PCP Internal Medicine; Visit Provider Surgery
DX: Z85.3 Personal history of malignant neoplasm of breast (principal)
CPT/HCPCS: 99213; G2211

== ENCOUNTER → 2025-01-20 15:06 | Outpatient (BNVA) | payer MEDICARE, SELFPAY | PROVIDERS: PCP Internal Medicine; Visit Provider Surgery | DX: Z85.3 Personal history of malignant neoplasm of breast (principal) | CPT/HCPCS: 99212 ==

== ENCOUNTER 2025-04-12 07:28 | Outpatient (REF) | payer MEDICARE, SELFPAY ==
[2025-04-12 10:00] LABS: Alanine Aminotransferase 11 U/L (0-31); Albumin Level 4.4 g/dL (3.5-5.0); Alkaline Phosphatase 90 U/L (39-117); Anion Gap 13 (12-20); Aspartate Amino Transferase 19 U/L (5-31); Blood Urea Nitrogen 23 mg/dL (9-16); Calcium 9.4 mg/dL (8.4-10.2); Carbon Dioxide 26 mmol/L (22-29); Chloride 110 mmol/L (96-108); Cholesterol 143 mg/dL (<200); Estimated Glomerular Filt Rate > 60; HDL Cholesterol 71 mg/dL (>40); Potassium 5.1 mmol/L (3.3-5.1); Sodium 144 mmol/L (135-145); Total Protein 7.0 g/dL (6.5-8.0); Triglycerides 62 mg/dL (<150)
[2025-04-12 10:29] LABS: Folate 10.8 ng/mL (> or = 4.0); Vitamin B12 536 pg/mL (200-900)
== END 2025-04-12 07:29 | disposition home or self-care (01) ==
LOC: HO.LAB 07:28
PROVIDERS: PCP Internal Medicine; Visit Provider Internal Medicine
DX: E11.9 Type 2 diabetes mellitus without complications (principal); E53.8 Deficiency of other specified B group vitamins; E55.9 Vitamin D deficiency, unspecified; R80.9 Proteinuria, unspecified; E78.5 Hyperlipidemia, unspecified
CPT/HCPCS: 36415; 80053; 80061; 82043; 82306; 82570; 82607; 82746

== ENCOUNTER 2025-04-21 15:04 | Outpatient (AMB) | payer MEDICARE, SELFPAY ==
[2025-04-21 16:02] VITALS: BP 120/68; PULSE 110; TEMP 36.2; O2SAT 99; BMI 26.2
--- NOTE | 2025-04-21 16:02 | A.OFFPC_ITS ---
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: No Accompanied by: Self / Same As Patient Allergies Seasonal Allergies Allergy (Verified 04/21/25 16:33) Sneezing Medication List - Last Reconciled 04/21/25 by Joycelyn Huerta MD acetaminophen 1,000 mg (2 x 500 mg) PO Q6H PRN atorvastatin 40 mg PO DAILY benzonatate 200 mg (2 x 100 mg) PO BID blood sugar diagnostic As directed blood sugar diagnostic (FreeStyle Lite Strips) 1 strip miscellaneous TID clotrimazole-betamethasone 1-0.05 % 1 appl topical BID 30 days cyanocobalamin (vitamin B-12) (Vitamin B-12) 500 mcg PO DAILY empagliflozin (Jardiance) 25 mg PO DAILY 90 days hydrocortisone 1% (Anti-Itch (hydrocortisone)) 1 appl topical TID PRN 30 days lancets As directed lisinopril 10 mg PO DAILY 90 days metformin 1,000 mg PO BID 90 days omeprazole 20 mg PO DAILY ondansetron 4 mg PO Q8H PRN tmrhihgaqxurm-HC-ljqmdseuxyp 2.5-5-50 mg/5 mL (Robitussin Cough and Cold CF) 30 mL PO Q6-8H PRN Tobacco use date assessed: 08/15/24 Fall risk assessment: No Falls in past year Dental Screening Dental Screen Date: 08/15/24 Did you have a dental visit in the last 12 months?: Yes Did you have a dental problem in the last 6 months where you did not have access to dental care?: No Was dental information given to patient?: Patient has dentist HPI HPI Comments History of Present Illness Details The patient is a 65-year-old female presenting for her physical exam. Colonoscopy done 2019. Mammogram done this year. History of left breast cancer follow by Hematology-Oncology. She also has diabetes mellitus type 2 and her A1c is 7.4%. She has a new complaint of insomnia. Her current medications include B12, Jardiance 25 mg, lisinopril 10 mg, metformin, omeprazole, ondansetron, and a medication for cholesterol. Her past surgical history includes a breast lumpectomy, cataract surgery, endoscopy, and a colonoscopy in 2019. The colonoscopy was recommended every five years. Inquiry was made about prior bone densitometry. [facility] Medical History Acute respiratory disease History of breast cancer Physical exam Breast cancer, left Abnormal mammogram of left breast Dyslipidemia Allergic rhinitis Gastritis Hyperlipidemia Anemia Type 2 diabetes mellitus Hypertension Surgical History History of lumpectomy of left breast Hx of bilateral cataract extraction History of esophagogastroduodenoscopy (EGD) H/O colonoscopy History of surgery History of tubal ligation Family History Father Diabetes Hypertension Mother Diabetes Hypertension Chronic mental illness Brother In good health Brother In good health Sister In good health Son In good health Son In good health Son In good health Social History Household Members: Spouse Housing: House Are you a primary customer care voice consultant to a significant other at home: Yes (mother) Do you presently have visiting nurse or other home services: No Alcohol intake: never Patient Tobacco Use Status: Never used Tobacco e-Cigarette/Vaping Use: Never Used Second Hand Smoke Exposure: No service: No Current occupational status: unemployed Cognitive needs: No Hearing needs: No Vision needs: Yes Questionnaire PHQ-9 Over the last 2 weeks, how often have you been bothered by any of the following problems? 1. Little interest or pleasure in doing things: not at all 2. Feeling down, depressed, or hopeless: not at all 3. Trouble falling or staying asleep, or sleeping too much: not at all 4. Feeling tired or having little energy: not at all 5. Poor appetite or overeating: not at all 6. Feeling bad about yourself - or that you are a failure or have let yourself or your family down: not at all 7. Trouble concentrating on things, such as reading the newspaper or watching t elevision: not at all 8. Moving or speaking so slowly that other people could have noticed. Or the opposite - being so fidgety or restless that you have been moving around a lot more than usual: not at all 9. Thoughts that you would be better off or of hurting yourself in some way: not at all Total score: 0 Depression Screening Interpretation: Negative Depression Screening Done: Yes 72003 - PHQ-9 Billing: Yes Source: Developed by Drs. Noe Bonner, Fifi Figueroa, Bertrand Cook and colleagues, with an educational adam from [employer]. Thrive Questionnaire Date Thrive assessed: 12/11/24 I am a: Patient What is your living situation today?: I have a steady place to live Within the past 12 months, did the food you bought not last and you didn't have the money to get more?: Never true Within the past 12 months, did you worry whether your food would run out before you got money to buy more?: Never true Do you have trouble paying for medicines?: No Do you have trouble getting transportation to medical appointments?: No Do you have trouble paying your heating and electricity bill?: No Do you have trouble taking care of your child, family member or friend?: No Do you have trouble with day-to-day activities such as bathing, preparing meals, shopping, managing finances, etc.?: No Are you currently unemployed and looking for a job?: No Are you interested in more education?: No Please select the resources that you would like help with: None Currently or been in a relationship where the following occur: No concerns reported THRIVE Score: 0 AUDIT C Alcohol Use Questionnaire (AUDIT-C) 1. How often do you have a drink containing alcohol?: Never Total Score: 0 Score Reviewed/Action Taken: No ERIN-7 AMB Questionnaire ERIN-7 Date ERIN - 7 assessed: 12/11/24 Feeling nervous, anxious, or on edge: 0 = Not at all Not being able to stop or control worryin = Not at all Worrying too much about different things: 0 = Not at all Trouble relaxin = Not at all Being so restless that it is hard to sit still: 0 = Not at all Becoming easily annoyed or irritable: 0 = Not at all Feeling afraid as if something awful might happen: 0 = Not at all Total ERIN-7 score (0-4 normal; 5-9 mild; 10-14 moderate; 15-21 severe): 0 Source: Developed by Drs. Noe Bonner, Fifi Figueroa, Bertrand Cook and colleagues, with an educational adam from [employer]. ERIN-7 Assessment Billing ERIN-7 Assessment Tool: ERIN-7 Assessment 29660 Review of Systems Const All systems reviewed & are unremarkable except as noted in HPI and below Card Denies chest pain at rest, Denies chest pain with activity, Denies edema, Denies irregular heart rhythm, Denies claudication, Denies dyspnea, Denies dyspnea on exertion, Denies orthopnea, Denies paroxysmal nocturnal dyspnea and Denies slow heart rate Resp Denies cough, Denies dyspnea and Denies dyspnea on exertion GI Denies abdominal pain, Denies change in bowel habits, Denies excessive flatus, Denies nausea and Denies vomiting Physical exam (Primary Care) Vital Signs: Last Vital Signs Temp 97.2 F 04/21/25 16:02 Pulse 110 H 04/21/25 16:02 BP 120/68 04/21/25 16:02 Pulse Ox 99 04/21/25 16:02 Oxygen Delivery Method Room Air 04/21/25 16:02 BMI result Body Mass Index 26.2 Tobacco/Smoking Status: Tobacco use Status Tobacco use date assessed 08/15/24 04/21/25 16:04 Patient Tobacco Use Status Never used Tobacco 04/21/25 16:04 Tobacco use type 12/11/24 15:01 e-Cigarette/Vaping Use Never Used 04/21/25 16:04 PHQ-9: PHQ-9 Score PHQ-9: Total score 0 04/21/25 16:58 Depression Screening Interpretation: Negative Thrive Assessment: Date of Thrive Assessment Date Thrive assessed 12/11/24 04/21/25 16:04 Currently or been in a relationship where the following occur: No concerns reported [facility] Head: Yes normal to inspection, Yes normocephalic and Yes atraumatic Ears: external ears normal Eyes General: appearance normal, both eyes and all related structures Eyelids: Yes eyelids normal Conjunctivae: conjunctivae normal Neck Neck: Yes normal visual inspection and Yes supple Resp Effort & Inspection: normal respiratory effort Auscultation: clear to auscultation bilaterally Cardio Jugular venous distension: no JVD Rate: regular rate Rhythm: regular rhythm Heart sounds: S1 normal heart sound present and S2 normal heart sound present GI Inspection: Yes normal to inspection Palpation (GI): Soft to palpation and nontender Auscultation: normal bowel sounds Skin General skin exam: no rashes or lesions noted Neuro General: no focal motor deficits Extrem General: Yes full ROM Psych Appearance: grossly normal Office Procedures Flu Questionnaire Does the patient have a severe egg allergy?: No Does the patient have severe life threatening allergies?: No Does the patient have a fever or illness today?: No Has the patient ever had Guillain-[place] Syndrome?: No Has the patient ever had any past reaction to a flu shot?: No Results AMB Hemoglobin A1c AMB Hemoglobin A1c 7.4 % Last Edit by Saige Carvalho MA on 04/21/25 16:59 Immunizations Fluarix [id number] (PF) 45 mcg (15 mcg x 3)/0.5 mL IM syringe Performing Provider: Joycelyn Huerta MD [facility] Administered by: Jannette Hoffman CMA on 04/21/25 16:42 Dose Route Admin Location Dispensed Lot Number Expiration Date NDC Chainstitch Felled Seam Operator 0.5 mL IM Left Deltoid 0.5 mL [id number] 12/02/25 81618-162-24 ClasesDINE VIS Given Date VIS Provided VIS Publication Date 04/21/25 Single Vaccine 24 Eligibility Eligibility Date Funding Source Not [facility] Eligible 04/21/25 Private Results Reviewed Results Reviewed: Laboratory Last Values Hgb A1c (Clinic) 7.4 % (4.0-6.0) H 04/21/25 16:35 Coding Level of Care Code Est Pt Level 3 (49161) Est Pt Prev Care >65y(22514) Diagnoses Physical exam Z00.00 Malignant neoplasm of left female breast, unspecified estrogen receptor status, unspecified site of breast C50.912 Breast location: unspecified site of breast Estrogen receptor status: unspecified Patient sex: female Type 2 diabetes mellitus without complication, without long-term current use of insulin E11.9 Diabetes mellitus complication status: without complication Diabetes mellitus buttermaker helper insulin use: without buttermaker helper use Diabetes mellitus type: type 2 Insomnia G47.00 Additional Codes ERIN-7 Assessment Billing - ERIN-7 Assessment Tool: ERIN-7 Assessment 29514 ([id number]) PHQ-9 - 83810 - PHQ-9 Billing: Yes ([id number]) Time Spent (min) 32 Assessment & Plan Assessment & Plan (1) Physical exam: Code(s): Z00.00 - Encounter for general adult medical examination without abnormal findings Category: Medical (2) Breast cancer, left: Code(s): C50.912 - Malignant neoplasm of unspecified site of left female breast Category: Medical Qualifiers: Breast location: unspecified site of breast Estrogen receptor status: unspecified Patient sex: female Qualified Code(s): C50.912 - Malignant neoplasm of unspecified site of left female breast (3) Diabetes mellitus: Code(s): E11.9 - Type 2 diabetes mellitus without complications Category: Medical Qualifiers: Diabetes mellitus complication status: without complication Diabetes mellitus longterm insulin use: without longterm use Diabetes mellitus type: type 2 Qualified Code(s): E11.9 - Type 2 diabetes mellitus without complications (4) Insomnia: Code(s): G47.00 - Insomnia, unspecified Category: Medical Plan Plan 1. Physical exam Repeat in a year. 2. Insomnia The patient reports requiring medication to help with sleep. 3. Diabetes mellitus Keep A1c within goal being less than 7% Orders: Orders AMB Hemoglobin A1c Today Z13.9 - Encounter for screening, unspecified Influenza [id number] Immunization Today Z23 - Encounter for immunization Lipid Panel 4 Months E78.5 - Hyperlipidemia, unspecified Microalbumin, Random (w Creat) 4 Months R80.9 - Proteinuria, unspecified Vitamin D 25-OH Total 4 Months E55.9 - Vitamin D deficiency, unspecified Vitamin B12 and Folate 4 Months E53.8 - Deficiency of other specified B group vitamins Comprehensive Maxwell. Panel Fast 4 Months Z00.00 - Encounter for general adult medical examination without abnormal findings Medications: New zolpidem 5 mg PO BEDTIME PRN 30 tabs 0RF insomnia 30 days
== END 2025-04-21 16:50 | disposition home or self-care (01) ==
LOC: HO.HMCH 15:04
PROVIDERS: PCP Internal Medicine; Visit Provider Internal Medicine
DX: Z00.00 Encounter for general adult medical examination without abnormal findings (principal); C50.912 Malignant neoplasm of unspecified site of left female breast; E11.9 Type 2 diabetes mellitus without complications; G47.00 Insomnia, unspecified; Z23 Encounter for immunization

== ENCOUNTER → 2025-04-21 15:04 | Outpatient (BNVA) | payer MEDICARE, SELFPAY | PROVIDERS: PCP Internal Medicine; Visit Provider Internal Medicine | DX: Z00.00 Encounter for general adult medical examination without abnormal findings (principal); C50.912 Malignant neoplasm of unspecified site of left female breast; E11.9 Type 2 diabetes mellitus without complications; G47.00 Insomnia, unspecified; Z23 Encounter for immunization; Z13.31 Encounter for screening for depression | CPT/HCPCS: 83036; 90471; 90656; 96127; 99397 ==

== ENCOUNTER 2025-06-03 11:02 | Outpatient (AMB) | payer MEDICARE, SELFPAY ==
--- NOTE | 2025-06-03 11:06 | A.OFFPC_ITS ---
Vital Signs 06/03/25 11:07 Height 5 ft 2 in Weight 145 lb 2 oz BMI 26.5 BP 130/60 Blood Pressure Location Lt brachial Position Sitting Pulse 96 Pulse Source Pulse Oximeter Temp 97.3 F Temp Source Temporal Artery Scan Pulse Oximetry (%) 98 Oxygen Delivery Method Room Air Intake Visit Reasons: ongoing cough Intake Note: Patient complains of Ongoing cough, fever, congestion, headache. OTC no helping. No home testing for covid. Boner Meat Required: No Loan Interviewer: Not Required per policy Accompanied by: Self / Same As Patient Allergies Seasonal Allergies Allergy (Verified 06/03/25 11:30) Sneezing Medication List - Last Reconciled 06/03/25 by Jaden Hamilton PA-C acetaminophen 1,000 mg (2 x 500 mg) PO Q6H PRN atorvastatin 40 mg PO DAILY blood sugar diagnostic As directed blood sugar diagnostic (FreeStyle Lite Strips) 1 strip miscellaneous TID clotrimazole-betamethasone 1-0.05 % 1 appl topical BID 30 days cyanocobalamin (vitamin B-12) (Vitamin B-12) 500 mcg PO DAILY empagliflozin (Jardiance) 25 mg PO DAILY 90 days ferrous sulfate 325 mg PO BID hydrocortisone 1% (Anti-Itch (hydrocortisone)) 1 appl topical TID PRN 30 days lancets As directed lisinopril 10 mg PO DAILY 90 days metformin 1,000 mg PO BID 90 days omeprazole 20 mg PO DAILY ondansetron 4 mg PO Q8H PRN zolpidem 5 mg PO BEDTIME PRN 30 days Tobacco use date assessed: 06/03/25 Fall risk assessment: No Falls in past year Last assessed Fall Risk: 06/03/25 Dental Screening Dental Screen Date: 08/15/24 HPI ongoing cough HPI Details The patient is a 65 year old female presenting with a cough that started one week ago. She reports associated symptoms including headaches, stuffy nose requiring mouth breathing, and a fever that occurred yesterday. She has tried [id number] medications without relief. Her medical history is significant for diabetes, which is managed with oral medications and not insulin. She reports that her grandson is also sick at his home. Regarding past treatments for similar symptoms, she reports that benzonatate was not effective, but azithromycin has helped her previously. [facility] Medical History Acute respiratory disease History of breast cancer Physical exam Breast cancer, left Abnormal mammogram of left breast Dyslipidemia Allergic rhinitis Gastritis Hyperlipidemia Anemia Type 2 diabetes mellitus Hypertension Surgical History History of lumpectomy of left breast Hx of bilateral cataract extraction History of esophagogastroduodenoscopy (EGD) H/O colonoscopy History of surgery History of tubal ligation Family History Father Diabetes Hypertension Mother Diabetes Hypertension Chronic mental illness Brother In good health Brother In good health Sister In good health Son In good health Son In good health Son In good health Social History Household Members: Spouse Housing: House Are you a primary primary care nurse practitioner to a significant other at home: Yes (mother) Do you presently have visiting nurse or other home services: No Alcohol intake: never Patient Tobacco Use Status: Never used Tobacco e-Cigarette/Vaping Use: Never Used Second Hand Smoke Exposure: No service: No Current occupational status: unemployed Cognitive needs: No Hearing needs: No Vision needs: Yes Questionnaire Thrive Questionnaire Date Thrive assessed: 12/11/24 ERIN-7 AMB Questionnaire ERIN-7 Date ERIN - 7 assessed: 12/11/24 Source: Developed by Drs. Noe Bonner, Fifi Figueroa, Bertrand Cook and colleagues, with an educational adam from [employer]. Review of Systems Const Denies headache(s) Eyes Denies loss of vision ENT Denies vertigo, Denies dizziness, Reports facial pain, Denies headache(s), Reports nasal congestion and Reports sore throat Card Denies chest pain, Denies leg edema and Denies lightheadedness Resp Reports cough, Denies hemoptysis and Denies wheezing GI Denies abdominal pain, Denies melena, Denies constipation, Denies diarrhea and Denies vomiting Denies urinary frequency, Denies dysuria and Denies urinary urgency Musc Denies arthralgias, Denies joint swelling, Denies numbness and Denies tingling Neuro Denies Abnormal speech present, Denies behavioral changes, Denies vertigo, Denies dizziness, Denies headache(s), Denies loss of vision, Denies memory loss, Denies numbness and Denies tingling Psych Denies anxiety, Denies behavioral changes, Denies depression, Denies memory loss and Denies panic attacks Sunny/Lymph Denies easy bleeding and Denies easy bruising Aller/Immun Denies wheezing Physical exam (Primary Care) Vital Signs: Last Vital Signs Temp 97.3 F 06/03/25 11:07 Pulse 96 06/03/25 11:07 BP 130/60 06/03/25 11:07 Pulse Ox 98 06/03/25 11:07 Oxygen Delivery Method Room Air 06/03/25 11:07 BMI result Body Mass Index 26.5 Tobacco/Smoking Status: Tobacco use Status Tobacco use date assessed 06/03/25 06/03/25 11:07 Patient Tobacco Use Status Never used Tobacco 06/03/25 11:07 Tobacco use type 12/11/24 15:01 e-Cigarette/Vaping Use Never Used 06/03/25 11:07 Thrive Assessment: Date of Thrive Assessment Date Thrive assessed 12/11/24 06/03/25 11:07 Const General: healthy appearing, no acute distress, alert and awake Nutritional Appearance: well nourished Orientation/consciousness: oriented to person, oriented to place and oriented to time HENMT Other: NOTABLE NASAL CONGESTION Ears: TM's normal bilaterally General nose exam: Normal nasal mucous membranes and turbinates present Eyes Conjunctivae: conjunctivae normal Sclerae: sclerae normal Pupils: Equal, round and reactive pupils present Neck Neck: Yes no lymphadenopathy and Yes no JVD Thyroid: Thyroid normal Carotids: no bruits Resp Other: OCCASIONAL COUGH DURING EXAM Effort & Inspection: normal respiratory effort, Actively coughing Quality: dry and not tachypneic Auscultation: no crackles, no rales, no rhonchi and no wheezes Cardio Rate: regular rate Rhythm: regular rhythm Heart sounds: no murmurs and normal S1 and S2 GI Palpation (GI): Soft to palpation, nontender, no hepatomegaly and no splenomegaly Auscultation: normal bowel sounds Skin General skin exam: no rashes or lesions noted and dry skin Neuro General: oriented to person, oriented to place and oriented to time Cranial nerves: Yes Equal, round and reactive pupils present Speech: No Abnormal speech present Gait exam (Neuro): Normal gait present Motor exam (neuro): no tremor noted Extrem Right upper extremity: full ROM Left upper extremity: full ROM Right lower extremity: full ROM; no edema Left lower extremity: full ROM; no edema Psych Mental Status: mental status grossly normal Speech and movement: Normal speech and movement present Affect: normal affect Attitude: cooperative Thought process: Normal thought process present Coding Level of Care Code Est Pt Level 3 (87611) Diagnoses Bronchitis J40 Assessment & Plan Assessment & Plan (1) Bronchitis: Code(s): J40 - Bronchitis, not specified as acute or chronic Category: Medical Plan: To investigate the etiology of the patient's symptoms, a nasal swab was collected for a combined influenza, RSV, and COVID-19 test. Additionally, an order for a chest X-ray will be placed to rule out pneumonia, given the duration of her symptoms and her history of diabetes. The patient will be contacted with the results of these tests. Considering the patient's increased risk for pneumonia due to her diabetes and her report of prior successful treatment, a prescription for azithromycin will be sent to her pharmacy. She was counseled that it may be a viral illness that could linger and was advised to rest and maintain hydration. She can continue to use ezur-ppn-pytroyv cough suppressants as needed. Orders: Orders XR chest 2V Today J40 - Bronchitis, not specified as acute or chronic SARS-CoV2/FLU/RSV Today J40 - Bronchitis, not specified as acute or chronic Medications: New azithromycin For 250 mg dose pack: take 500 mg today (day 1), then 250 mg for 4 days (days 2-5) PO 6 tabs 0RF J40 - Bronchitis, not specified as acute or chronic
[2025-06-03 11:07] VITALS: BP 130/60; PULSE 96; TEMP 36.3; O2SAT 98; BMI 26.5
== END 2025-06-03 13:28 | disposition home or self-care (01) ==
LOC: HO.HMCH 11:03
PROVIDERS: PCP Internal Medicine; Visit Provider Physician Assistant
DX: J40 Bronchitis, not specified as acute or chronic (principal)

== ENCOUNTER → 2025-06-03 11:02 | Outpatient (BNVA) | payer MEDICARE, SELFPAY | PROVIDERS: PCP Internal Medicine; Visit Provider Physician Assistant | DX: J40 Bronchitis, not specified as acute or chronic (principal) | CPT/HCPCS: 99212 ==

== ENCOUNTER 2025-06-04 08:03 | Outpatient (REF) | payer MEDICARE, SELFPAY ==
--- NOTE | ~2025-06-04 | XR_ITS ---
EXAMINATION: XR CHEST CLINICAL INFORMATION: J40 - Bronchitis, not specified as acute or chronic COMPARISON: 06/01/2015. TECHNIQUE: 2 views of the chest were obtained. FINDINGS: The cardiac, hilar, and mediastinal contours are normal. There is a moderate-sized retrocardiac hiatus hernia with air-fluid level present. The lungs are clear bilaterally. There is no pneumothorax or pleural effusion. There is no focal osseous or soft tissue abnormality. XR/XR chest 2V IMPRESSION: 1. Moderate sized hiatus hernia in the retrocardiac region. 2. No active pulmonary disease. Electronically signed by: Deep Mcdonald MD 06/04/2025 02:25 PM [facility] [place]
[2025-06-04 08:55] LABS: Resp Syncy Virus RNA Qual PCR NEGATIVE (Negative); SARS COV2 PCR INHOUSE NEGATIVE (Negative)
== END 2025-06-04 08:04 | disposition home or self-care (01) ==
LOC: HO.XRAY 08:03
PROVIDERS: PCP Internal Medicine; Visit Provider Physician Assistant
DX: J40 Bronchitis, not specified as acute or chronic (principal); Z03.818 Encounter for observation for suspected exposure to other biological agents ruled out
CPT/HCPCS: 71046; 87637

== ENCOUNTER → 2025-06-04 13:39 | Outpatient (BNV) | payer MEDICARE, SELFPAY | PROVIDERS: PCP Internal Medicine; Visit Provider Radiology Diagnostic Radiology | DX: J40 Bronchitis, not specified as acute or chronic (principal); K44.9 Diaphragmatic hernia without obstruction or gangrene | CPT/HCPCS: 71046 ==